=== PATIENT | male | born 1960 | race Caucasian/White ===

== ENCOUNTER → 2021-07-06 07:59 | Outpatient (BNVA) | payer MEDICARE, SELFPAY | PROVIDERS: Visit Provider Nurse Practitioner Family | DX: G43.109 Migraine with aura, not intractable, without status migrainosus (principal); G47.33 Obstructive sleep apnea (adult) (pediatric); G24.01 Drug induced subacute dyskinesia | CPT/HCPCS: 99212 ==

== ENCOUNTER → 2021-10-12 07:57 | Outpatient (BNVA) | payer MEDICARE, SELFPAY | PROVIDERS: PCP Family Medicine; Visit Provider Nurse Practitioner Family | DX: G43.109 Migraine with aura, not intractable, without status migrainosus (principal); G24.01 Drug induced subacute dyskinesia; G47.33 Obstructive sleep apnea (adult) (pediatric) | CPT/HCPCS: 99212 ==

== ENCOUNTER → 2022-02-06 07:57 | Outpatient (BNVA) | payer MEDICARE, SELFPAY | PROVIDERS: PCP Family Medicine; Visit Provider Nurse Practitioner Family | DX: G43.109 Migraine with aura, not intractable, without status migrainosus (principal); G47.33 Obstructive sleep apnea (adult) (pediatric); G24.01 Drug induced subacute dyskinesia | CPT/HCPCS: 99212 ==

== ENCOUNTER → 2022-08-07 12:52 | Outpatient (BNVA) | payer MEDICARE, SELFPAY | PROVIDERS: Visit Provider Nurse Practitioner Family | DX: G43.109 Migraine with aura, not intractable, without status migrainosus (principal); G47.33 Obstructive sleep apnea (adult) (pediatric); G24.01 Drug induced subacute dyskinesia; Z79.899 Other long term (current) drug therapy | CPT/HCPCS: 99212 ==

== ENCOUNTER 2023-03-23 11:23 | Outpatient (AMB) | payer MEDICARE, SELFPAY ==
[2023-03-23 11:32] VITALS: BP 134/72; PULSE 78; O2SAT 96; BMI 34.4
--- NOTE | 2023-03-23 11:32 | MHC.OFFVIS ---
Intake Vital Signs 03/23/23 11:32 Height 5 ft 9 in Weight 233 lb BMI 34.4 BP 134/72 Blood Pressure Location Rt brachial Position Sitting Pulse 78 Pulse Source Pulse Oximeter Pulse Oximetry (%) 96 Oxygen Delivery Method Room Air Intake Visit Reasons: 4m f/u migraine - Confirmed Intake Note: Patient presents for follow up. I'm still having lots of headaches since I saw her last. Allergies Peanut Butter Allergy (Intermediate, Verified 03/23/23 11:34) throat swells up Medication List - Last Reconciled 03/23/23 by ALLY Harding atorvastatin 40 mg PO BEDTIME blood sugar diagnostic (iDentiMobuch Ultra Test strips) As directed bromfenac 0.09% 0 drps ophthalmic (eye) clonidine HCl 0.1 mg PO BID PRN diphenhydramine HCl (Benadryl) 25 - 50 mg (1 - 2 x 25 mg) PO Q6-8H PRN 30 days erenumab-aooe (Aimovig Autoinjector) 140 mg subcut ONCE 30 days fluoxetine 40 mg PO DAILY gabapentin 300 mg PO TID glipizide ER 10 mg PO DAILY haloperidol 2 mg PO BEDTIME lamotrigine 150 mg PO DAILY lancets (LookletTouch Delica Plus Lancet) As directed levothyroxine (Euthyrox) 150 mcg PO DAILY PRN lisinopril 2.5 mg PO DAILY lisinopril 5 mg PO DAILY magnesium oxide 400 mg PO BEDTIME 30 days metformin 1,000 mg PO BID nortriptyline 50 mg PO BID pioglitazone 30 mg PO DAILY riboflavin (vitamin B2) 200 mg (2 x 100 mg) PO BID 30 days sumatriptan succinate 50 - 100 mg orally at onset of headache, may repeat in 2 hrs PRN; max 2 tabs per day or 4 tabs/week (may take with Ibuprofen) 30 days topiramate 50 mg PO BID 30 days zolmitriptan 5 mg PO Q2H PRN 30 days HPI HPI Comments History of Present Illness Details 62-yr-old female presents for f/u visit. Pt denies any significant interval medical changes. Pt reports he is is still having a headache every other day. He was not able to restart Aimovig- states it is still too expensive. He is compliant w/ Topiramate and Nortriptyline. Zolmitriptan helps- takes about 3 times per week. He is sleeping well with CPAP use. CPAP 14 cmH2O- no recent compliance data available. [facility] Surgical History [place] teeth extracted H/O shoulder surgery Family History Mother Diabetes Asthma Father No problems noted. Brother Diabetes Social History Alcohol intake: never Patient Tobacco Use Status: Current everyday Tobacco user Review of Systems Const All systems reviewed & are unremarkable except as noted in HPI and below Physical Exam Vital Signs: Last Vital Signs Pulse 78 03/23/23 11:32 BP 134/72 03/23/23 11:32 Pulse Ox 96 03/23/23 11:32 Oxygen Delivery Method Room Air 03/23/23 11:32 BMI result Body Mass Index 34.4 Const General: cooperative and no acute distress Orientation/consciousness: patient oriented x3 HEENT Head: Yes normocephalic Resp Effort & Inspection: normal respiratory effort and able to speak in complete sentences Neuro General: patient oriented x3, gait normal and CN's II-XI intact bilaterally Cognition (Neuro): normal cognition Motor exam (neuro): 5/5 motor strength present throughout Psych Appearance: grossly normal Mental Status: mental status grossly normal Speech and movement: Normal speech and movement present Affect: normal affect Attitude: cooperative Thought process: Normal thought process present Thought content: Normal thought content present Insight: Good insight present (Psych) Judgement: Good judgement present (Psych) Assessment & Plan Assessment & Plan (1) Migraine with aura: Code(s): G43.109 - Migraine with aura, not intractable, without status migrainosus (2) Obstructive sleep apnea: Comment: AHI 11 REM AHI 24/hr Oxygen tasha 75%. Code(s): G47.33 - Obstructive sleep apnea (adult) (pediatric) Plan For migraine prevention: Increase Topiramate from 50mg bid to 75mg bid x's 2 wks, then 100mg bid. Hold Aimovig 140mg sc q month- will revisit if co-pay becomes more affordable. Continue Nortriptyline- prescribed for mood Continue Lamotrigine- prescribed for mood. Continue lisinopril, clonidine- for BP and sleep- BP is normotensive. Continue Mag and B2. ? For acute migraine tx: Continue Zolmitriptan may take with Aleve liquid gels. Continue prn Benadryl 25-50mg for rescue/sleep. ? For PAKO: Continue CPAP 14 cmH2O, as pt is experiencing good clinical benefit from use. ? Monitor TD s/s clinically. Medications: New aripiprazole 5 mg orally BID PRN; Changed From topiramate 50 mg PO BID 30 days 60 tabs 3RF To topiramate 1.5 tabs bid x's 2 wks, then 2 tabs bid orally 2 times a day; 120 tabs 3RF 30 days Coding Level of Care Code Est Pt Level 4 (49257) Diagnoses Migraine with aura G43.109 Obstructive sleep apnea G47.33
== END 2023-03-23 12:10 | disposition home or self-care (01) ==
PROVIDERS: Visit Provider Nurse Practitioner Family
DX: G43.109 Migraine with aura, not intractable, without status migrainosus (principal); G47.33 Obstructive sleep apnea (adult) (pediatric)
CPT/HCPCS: 99214

== ENCOUNTER → 2023-03-23 11:23 | Outpatient (BNVA) | payer MEDICARE, SELFPAY | PROVIDERS: Visit Provider Nurse Practitioner Family | DX: G43.109 Migraine with aura, not intractable, without status migrainosus (principal); G47.33 Obstructive sleep apnea (adult) (pediatric) | CPT/HCPCS: 99212 ==

== ENCOUNTER 2023-07-25 11:33 | Outpatient (AMB) | payer MEDICARE, SELFPAY ==
--- NOTE | 2023-07-25 11:40 | A.OFFVIS_ITS ---
Vital Signs 07/25/23 11:41 Height 5 ft 9 in Weight 230 lb BMI 34.0 BP 112/70 Blood Pressure Location Rt brachial Pulse 75 Pulse Source Pulse Oximeter Pulse Oximetry (%) 97 Oxygen Delivery Method Room Air Intake Visit Reasons: 4 mnts f/u for migraines, pako-LVM Intake Note: Patient presents for follow up. migraines are coming back again. Allergies Peanut Butter Allergy (Intermediate, Verified 07/25/23 11:42) throat swells up Medication List - Last Reconciled 07/25/23 by ALLY Harding albuterol sulfate 90 mcg/actuation inhalation aripiprazole 5 mg orally BID PRN; atorvastatin 40 mg PO BEDTIME blood sugar diagnostic (Ventus Medicaluch Ultra Test strips) As directed bromfenac 0.09% 0 drps ophthalmic (eye) clonidine HCl 0.1 mg PO BID PRN diphenhydramine HCl (Benadryl) 25 - 50 mg (1 - 2 x 25 mg) PO Q6-8H PRN 30 days erenumab-aooe (Aimovig Autoinjector) 140 mg subcut ONCE 30 days fluoxetine 40 mg PO DAILY gabapentin 300 mg PO TID glipizide ER 10 mg PO DAILY haloperidol 2 mg PO BEDTIME lamotrigine 150 mg PO DAILY lancets (YouxinpaiTouch Delica Plus Lancet) As directed levothyroxine (Euthyrox) 150 mcg PO DAILY PRN lisinopril 2.5 mg PO DAILY lisinopril 5 mg PO DAILY magnesium oxide 400 mg PO BEDTIME 30 days metformin 1,000 mg PO BID nortriptyline 50 mg PO BID pioglitazone 30 mg PO DAILY riboflavin (vitamin B2) 200 mg (2 x 100 mg) PO BID 30 days sumatriptan succinate 50 - 100 mg orally at onset of headache, may repeat in 2 hrs PRN; max 2 tabs per day or 4 tabs/week (may take with Ibuprofen) 30 days topiramate 1.5 tabs bid x's 2 wks, then 2 tabs bid orally 2 times a day; 30 days zolmitriptan 5 mg PO Q2H PRN 30 days HPI Comments Details: 63-yr-old male presents for f/u visit. Pt reports last month, he had the Flu and bronchitis- required ABT, prednisone, and asthma tx. Around the same time, he pulled his left lateral thigh muscle- unsure how. His last HgA1C was 7.3% His migraine attacks are increasing. Now having 2-3 migraine days per week. He did increase Topiramate to 100mg bid- helped initially but effect has waned. He is still sleeping well w/ CPAP. [facility] Surgical History [place] teeth extracted H/O shoulder surgery Family History Mother Diabetes Asthma Father No problems noted. Brother Diabetes Social History Alcohol intake: never Patient Tobacco Use Status: Current everyday Tobacco user Physical Exam Vital Signs: Last Vital Signs Pulse 75 07/25/23 11:41 BP 112/70 07/25/23 11:41 Pulse Ox 97 07/25/23 11:41 Oxygen Delivery Method Room Air 07/25/23 11:41 BMI result Body Mass Index 34.0 Const General: cooperative and no acute distress Orientation/consciousness: patient oriented x3 Resp Other: intermittent non-productive cough Effort & Inspection: normal respiratory effort and able to speak in complete sentences Neuro General: patient oriented x3 Cranial nerves: Yes CN's II-XII intact bilaterally Cognition (Neuro): normal cognition Psych Appearance: grossly normal Mental Status: mental status grossly normal Speech and movement: Normal speech and movement present Affect: normal affect Attitude: cooperative Assessment & Plan Assessment & Plan (1) Migraine with aura: Code(s): G43.109 - Migraine with aura, not intractable, without status migrainosus Category: Medical (2) Obstructive sleep apnea: Comment: AHI 11 REM AHI 24/hr Oxygen tasha 75%. Code(s): G47.33 - Obstructive sleep apnea (adult) (pediatric) Category: Medical (3) Tardive dyskinesia: Comment: Jaw, tongue movements Code(s): G24.01 - Drug induced subacute dyskinesia Category: Medical Plan For migraine prevention: Trial Memantine 5mg qd x's 7 days, and then increase by 5mg weekly, up to 10mg bid. Continue Topiramate 100mg bid. Hold Aimovig 140mg sc q month- will revisit if co-pay becomes more affordable. Continue Nortriptyline- prescribed for mood Continue Lamotrigine- prescribed for mood. Continue lisinopril, clonidine- for BP and sleep- BP is normotensive. Continue Mag and B2. ? For acute migraine tx: Continue Zolmitriptan may take with Aleve liquid gels. Continue prn Benadryl 25-50mg for rescue/sleep. ? For PAKO: Continue CPAP 14 cmH2O, as pt is experiencing good clinical benefit from use. ? Monitor TD s/s clinically. f/u in 6 months or sooner prn. Medications: New memantine 1 tab qd x's 1 wk, then 1 tab bid x's 1 wk, then 1 tab in am and 2 tabs qhs x's 1 wk, then 2 tabs bid orally .; 120 tabs 3RF 30 days Coding Level of Care Code Est Pt Level 4 (68454) Diagnoses Migraine with aura G43.109 Obstructive sleep apnea G47.33 Tardive dyskinesia G24.01
[2023-07-25 11:41] VITALS: BP 112/70; PULSE 75; O2SAT 97; BMI 34.0
== END 2023-07-25 12:29 | disposition home or self-care (01) ==
PROVIDERS: Visit Provider Nurse Practitioner Family
DX: G43.109 Migraine with aura, not intractable, without status migrainosus (principal); G47.33 Obstructive sleep apnea (adult) (pediatric); G24.01 Drug induced subacute dyskinesia
CPT/HCPCS: 99214

== ENCOUNTER → 2023-07-25 11:33 | Outpatient (BNVA) | payer MEDICARE, SELFPAY | PROVIDERS: Visit Provider Nurse Practitioner Family | DX: G43.109 Migraine with aura, not intractable, without status migrainosus (principal); G47.33 Obstructive sleep apnea (adult) (pediatric); G24.01 Drug induced subacute dyskinesia | CPT/HCPCS: 99212 ==

== ENCOUNTER 2024-01-30 09:26 | Outpatient (AMB) | payer MEDICARE, SELFPAY ==
--- NOTE | 2024-01-30 09:33 | MHC.OFFVIS ---
Vital Signs 01/30/24 09:35 Height 5 ft 9 in Weight 232 lb BMI 34.3 BP 144/90 H Blood Pressure Location Rt brachial Position Sitting Intake Visit Reasons: 6month F/U Intake Note: Patient presents for 6 month follow up Allergies Peanut Butter Allergy (Intermediate, Verified 01/30/24 09:36) throat swells up Medication List - Last Reconciled 01/30/24 by ALLY Harding albuterol sulfate 90 mcg/actuation inhalation aripiprazole 5 mg orally BID PRN; atorvastatin 40 mg PO BEDTIME blood sugar diagnostic (Mesurouch Ultra Test strips) As directed bromfenac 0.09% 0 drps ophthalmic (eye) clonidine HCl 0.1 mg PO BID PRN diphenhydramine HCl (Benadryl) 25 - 50 mg (1 - 2 x 25 mg) PO Q6-8H PRN 30 days erenumab-aooe (Aimovig Autoinjector) 140 mg subcut ONCE 30 days fluoxetine 40 mg PO DAILY gabapentin 300 mg PO TID glipizide ER 10 mg PO DAILY haloperidol 2 mg PO BEDTIME lamotrigine 150 mg PO DAILY lancets (SinimanesTouch Delica Plus Lancet) As directed levothyroxine (Euthyrox) 150 mcg PO DAILY PRN lisinopril 2.5 mg PO DAILY lisinopril 5 mg PO DAILY magnesium oxide 400 mg PO BEDTIME 30 days memantine 10 mg PO BID 30 days metformin 1,000 mg PO BID nortriptyline 50 mg PO BID pioglitazone 30 mg PO DAILY riboflavin (vitamin B2) 200 mg (2 x 100 mg) PO BID 30 days sumatriptan succinate 50 - 100 mg orally at onset of headache, may repeat in 2 hrs PRN; max 2 tabs per day or 4 tabs/week (may take with Ibuprofen) 30 days topiramate 100 mg PO BID 30 days zolmitriptan 5 mg PO Q2H PRN 30 days HPI Comments Details: 63-yr-old male presents for f/u visit. Pt reports last month, he had the Flu and bronchitis- required ABT, prednisone, and asthma tx. Around the same time, he pulled his left lateral thigh muscle- unsure how. His last HgA1C was 7.3% His migraine attacks are now less often since starting memantine, now about 1-2 times a week. His acute tx is effective. Recently pharmacy would not fill the triptan x's 1.5 weeks so he had more headaches that week as he could not treat them. Topiramate 100mg bid- helped initially but effect has waned. He is still sleeping well w/ CPAP. His [facility] portal showed no recent use, but pt states he uses it religiously. He has not noticed any involuntary oral movements. [facility] Surgical History [place] teeth extracted H/O shoulder surgery Family History Mother Diabetes Asthma Father No problems noted. Brother Diabetes Social History Alcohol intake: never Patient Tobacco Use Status: Current everyday Tobacco user Physical Exam Vital Signs: Last Vital Signs BP 144/90 H 01/30/24 09:35 BMI result Body Mass Index 34.3 Const General: cooperative and no acute distress Orientation/consciousness: patient oriented x3 Resp Effort & Inspection: normal respiratory effort and able to speak in complete sentences Neuro General: patient oriented x3 Cranial nerves: Yes CN's II-XII intact bilaterally Cognition (Neuro): normal cognition Psych Appearance: grossly normal Mental Status: mental status grossly normal Speech and movement: Normal speech and movement present Affect: normal affect Attitude: cooperative Assessment & Plan Assessment & Plan (1) Migraine with aura: Code(s): G43.109 - Migraine with aura, not intractable, without status migrainosus Category: Medical (2) Obstructive sleep apnea: Comment: AHI 11 REM AHI 24/hr Oxygen tasha 75%. Code(s): G47.33 - Obstructive sleep apnea (adult) (pediatric) Category: Medical (3) Tardive dyskinesia: Comment: Jaw, tongue movements Code(s): G24.01 - Drug induced subacute dyskinesia Category: Medical Plan For migraine prevention: Continue Memantine 10mg bid, as this has been helpful in reducing migraine burden. Continue Topiramate 100mg bid. Continue Nortriptyline- prescribed for mood Continue Lamotrigine- prescribed for mood. Continue lisinopril, clonidine- for BP and sleep- BP is typically normotensive. Continue Mag and B2. Previous migraine tx trials: Aimovig 140mg sc- effective but not affordable. ? For acute migraine tx: Trial Eletriptan 20-40mg, MR in 2 hrs (max 80mg/day)- in hopes this is effective but more cost effective. If Eletriptan effective, may stop Zolmitriptan as pt has to pay for this out of pocket. For now, continue Zolmitriptan 5mg at onset, MR in 2 hrs (max 10mg/day) may take with Aleve liquid gels. Continue prn Benadryl 25-50mg for rescue/sleep. ? For PAKO: Continue CPAP 14 cmH2O, as pt is experiencing good clinical benefit from use. ? Monitor TD s/s clinically. f/u in 6 months or sooner prn. Medications: New eletriptan take 1 tab at onset of headache; if no relief, may repeat 1 tab after at least 2 hrs; max = 2 tabs/24 hrs PO 12 tabs 6RF 30 days Changed From topiramate 100 mg PO BID 30 days 60 tabs 6RF To topiramate 100 mg PO BID 180 tabs 1RF 90 days From riboflavin (vitamin B2) 200 mg (2 x 100 mg) PO BID 30 days 120 tabs 6RF To riboflavin (vitamin B2) 200 mg (2 x 100 mg) PO BID 360 tabs 3RF 90 days From magnesium oxide 400 mg PO BEDTIME 30 days 30 tabs 6RF To magnesium oxide 400 mg PO BEDTIME 90 tabs 6RF 90 days Refilled diphenhydramine HCl (Benadryl) 25 - 50 mg (1 - 2 x 25 mg) PO Q6-8H PRN 24 caps 6RF severe migraine attack 30 days memantine 10 mg PO BID 60 tabs 6RF 30 days zolmitriptan Max 2 tabs per day or 4 tabs per week 5 mg PO Q2H PRN 12 tabs 6RF migraine headache 30 days Discontinued erenumab-aooe Discontinued Reason: Doctor's Order 140 mg subcut ONCE 30 days 1 mL 6RF Coding Level of Care Code Est Pt Level 4 (72640) Diagnoses Migraine with aura G43.109 Obstructive sleep apnea G47.33 Tardive dyskinesia G24.01
[2024-01-30 09:35] VITALS: BP 144/90; BMI 34.3
== END 2024-01-30 10:05 | disposition home or self-care (01) ==
LOC: HO.HSMS 09:27
PROVIDERS: Visit Provider Nurse Practitioner Family
DX: G43.109 Migraine with aura, not intractable, without status migrainosus (principal); G47.33 Obstructive sleep apnea (adult) (pediatric); G24.01 Drug induced subacute dyskinesia
CPT/HCPCS: 99214

== ENCOUNTER → 2024-01-30 09:26 | Outpatient (BNVA) | payer MEDICARE, SELFPAY | PROVIDERS: Visit Provider Nurse Practitioner Family | DX: G47.33 Obstructive sleep apnea (adult) (pediatric) (principal); G43.109 Migraine with aura, not intractable, without status migrainosus; G24.01 Drug induced subacute dyskinesia; Z99.89 Dependence on other enabling machines and devices; Z79.899 Other long term (current) drug therapy | CPT/HCPCS: 99212 ==

== ENCOUNTER 2024-08-14 08:16 | Outpatient (AMB) | payer MEDICARE, SELFPAY ==
[2024-08-14 08:25] VITALS: BP 124/78; PULSE 81; O2SAT 92; BMI 32.8
--- NOTE | 2024-08-14 08:25 | MHC.OFFVIS ---
Vital Signs 08/14/24 08:25 Height 5 ft 9 in Weight 222 lb BMI 32.8 BP 124/78 Blood Pressure Location Lt brachial Pulse 81 Pulse Source Pulse Oximeter Pulse Oximetry (%) 92 Oxygen Delivery Method Room Air Intake Visit Reasons: Follow Up 6mo Intake Note: Patient presents month follow up for migraines. [employer] Final [employer] Mechanical Required: No Accompanied by: Self / Same As Patient Allergies Peanut Butter Allergy (Intermediate, Verified 08/14/24 08:28) throat swells up Medication List - Last Reconciled 08/14/24 by ALLY Harding albuterol sulfate 90 mcg/actuation inhalation aripiprazole 5 mg orally BID PRN; atorvastatin 40 mg PO BEDTIME blood sugar diagnostic (Achieve X Ultra Test strips) As directed bromfenac 0.09% 0 drps ophthalmic (eye) clonidine HCl 0.1 mg PO BID PRN diphenhydramine HCl (Benadryl) 25 - 50 mg (1 - 2 x 25 mg) PO Q6-8H PRN 30 days eletriptan take 1 tab at onset of headache; if no relief, may repeat 1 tab after at least 2 hrs; max = 2 tabs/24 hrs PO 30 days fluoxetine 40 mg PO DAILY gabapentin 300 mg PO TID glipizide ER 10 mg PO DAILY haloperidol 2 mg PO BEDTIME lamotrigine 150 mg PO DAILY lancets (Cvgram.meuch Delica Plus Lancet) As directed levothyroxine (Euthyrox) 150 mcg PO DAILY PRN lisinopril 2.5 mg PO DAILY lisinopril 5 mg PO DAILY magnesium oxide 400 mg PO BEDTIME 90 days memantine 10 mg PO BID 30 days metformin 1,000 mg PO BID nortriptyline 50 mg PO BID pioglitazone 30 mg PO DAILY riboflavin (vitamin B2) 200 mg (2 x 100 mg) PO BID 90 days sumatriptan succinate 50 - 100 mg orally at onset of headache, may repeat in 2 hrs PRN; max 2 tabs per day or 4 tabs/week (may take with Ibuprofen) 30 days topiramate 100 mg PO BID 90 days zolmitriptan 5 mg PO Q2H PRN 30 days HPI Comments Details: 64-yr-old male presents for f/u visit for migraine and PAKO on CPAP. Pt denies any significant interval medical history changes. Patient reports his migraine attacks are stable, now 3-4 times per week, but at the last visit, he had reported 1-2 headache days per week. He is compliant with his current preventative migraine medication regimen. His acute tx is usually effective. However, he does not believe he received the eletriptan, which we had ordered as he was needing to pay [id number] for his prn Zolmitriptan- as the sumatriptan is no longer on his insurance formulary. He is still sleeping well w/ CPAP. He has not noticed any involuntary oral movements. [facility] Surgical History [place] teeth extracted H/O shoulder surgery Family History Mother Diabetes Asthma Father No problems noted. Brother Diabetes Social History Alcohol intake: never Patient Tobacco Use Status: Current everyday Tobacco user Physical Exam Vital Signs: Last Vital Signs Pulse 81 08/14/24 08:25 BP 124/78 08/14/24 08:25 Pulse Ox 92 08/14/24 08:25 Oxygen Delivery Method Room Air 08/14/24 08:25 BMI result Body Mass Index 32.8 Const General: cooperative and no acute distress Orientation/consciousness: patient oriented x3 Resp Effort & Inspection: normal respiratory effort and able to speak in complete sentences Neuro General: patient oriented x3 Cranial nerves: Yes CN's II-XII intact bilaterally Cognition (Neuro): normal cognition Psych Appearance: grossly normal Mental Status: mental status grossly normal Speech and movement: Normal speech and movement present Affect: normal affect Attitude: cooperative Assessment & Plan Assessment & Plan (1) Migraine with aura: Code(s): G43.109 - Migraine with aura, not intractable, without status migrainosus Category: Medical (2) Obstructive sleep apnea: Comment: AHI 11 REM AHI 24/hr Oxygen tasha 75%. Code(s): G47.33 - Obstructive sleep apnea (adult) (pediatric) Category: Medical (3) Tardive dyskinesia: Comment: Jaw, tongue movements Code(s): G24.01 - Drug induced subacute dyskinesia Category: Medical Plan For migraine prevention: Reviewed patient's insurance coverage/[id number] cost for all current available CGRP antagonist preventative treatments- however they are all still cost prohibitive for patient. Discussed trying Botox therapy, however patient states he is not interested in trying Botox. Continue Memantine 10mg bid, as this has been helpful in reducing migraine burden. Continue Topiramate 100mg bid. Continue Nortriptyline- prescribed for mood Continue Lamotrigine- prescribed for mood. Continue lisinopril, clonidine- for BP and sleep- BP is typically normotensive. Continue Mag and B2. Previous migraine tx trials: Aimovig 140mg sc- effective but not affordable. Future consideration: Trialing Co [id number] is not interested in trying this today. ? For acute migraine tx: Trial Rizatriptan 10mg tab, 1/2 - 1 tab (5-10mg) at onset of headache, may repeat in 2 hours. Max of 2 tabs (200mg) per 24 hours. May adjunct with OTC Tylenol 650mg every 4 hours, Ibuprofen (liquigel) 600mg every 6 hours, or Naproxen (liquigel) 440mg every 12 hrs as needed. Potential adverse effects of triptans, include but are not limited to nausea, fatigue, chest tightness/tingling (usually passes within a few minutes), medication overuse headaches. Hold Eletriptan order- pt has not rec'd. Hold Zolmitriptan 5mg at onset, MR in 2 hrs (max 10mg/day) may take with Aleve liquid gels. Continue prn Benadryl 25-50mg for rescue/sleep. ? For PAKO: Continue CPAP 14 cmH2O, as pt is experiencing good clinical benefit from use. ? Monitor TD s/s clinically. f/u in 6 months or sooner prn. Coding Level of Care Code Est Pt Level 4 (72358) Diagnoses Migraine with aura G43.109 Obstructive sleep apnea G47.33 Tardive dyskinesia G24.01
--- OUTSIDE RECORDS SUMMARY | 2024-08-14 08:28 | XMS_ITS | Clinical Summary ---
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 Name Role Phone Santy Lizarraga MD Primary Care Provider [phone] Social History Tobacco Use Types Packs/Day Years Used Date Smoking Tobacco: Never Assessed Sex and Gender Information Value Date Recorded Sex Assigned at Not on file Legal Sex Male 4:59 PM EST Gender Identity Not on file Sexual Orientation Not on file Plan of Treatment Health Maintenance Due Date Last Done Comments DTaP,Tdap,and Td Vaccines (1 - Tdap) 1979 Pneumococcal Vaccine: 50+ Ye ars (1 of 1 - PCV) 2010 Zoster Vaccines (1 of 2) 2010 COVID-19 Vaccine ( - 2023-2 5 season) 2023 Influenza Vaccine (Season Ended) 2024 RSV Immunization Adult Patie nts (1 - 1-dose 75+ series) 2035 HIB Vaccines Aged Out No longer eligi ble based on patient's age to complete this topic HPV Vaccines Aged Out No longer eligi ble based on patient's age to complete this topic Hepatitis A Vaccines Aged Out No long er eligible based on patient's age to complete this topic Hepatitis B Vaccines Aged Out No long er eligible based on patient's age to complete this topic IPV Vaccines Aged Out No longer eligi ble based on patient's age to complete this topic MMR Vaccines Aged Out No longer eligi ble based on patient's age to complete this topic Meningococcal ACWY Vaccine Aged Out N o longer eligible based on patient's age to complete this topic Meningococcal B Vaccine Aged Out No l onger eligible based on patient's age to complete this topic Pneumococcal Vaccine: Pediat rics (0 to 5 Years) and At-Risk Patients (6 to 64 Years) Aged Out No longer eligible b ased on patient's age to complete this topic RSV Immunization Patients Un martinez 20 months Aged Out No longer eligible b ased on patient's age to complete this topic Varicella Vaccines Aged Out No longer eligible based on patient's age to complete this topic Care Teams Boatbuilder Apprentice Wood Relationship Specialty Start Date End Date Santy Lizarraga MD [id number] [id number] PCP - General Internal Medicine 07/14/20
--- OUTSIDE RECORDS SUMMARY | 2024-08-14 08:29 | XMS_ITS | Data Portability ---
Author Organization [facility], Main Office Address [address] [place] [id number] Care Team Providers Care Shingle Cutter Name Role Phone ASHELY CRUZ Commercial Hvac Service Technician ISIAH BRIAN Vascular Surgeon LION KIRK Oral Surgeon/Dentist SHALOM AIKEN Primary Care Provider ANJALI WISE Psychiatrist [facility] Installer Technician LES RUSH Installer Technician Assessment No assessment recorded. Plan of Treatment Reminders Order Date Submit Date Provider Last Modified By Organization Details Last Modified Time Details Appointments Follow Up DM 30 2024 02:30P Alan Lee PA-C Not available Not available Not available Follow Up DM 30 2024 09:00A Alan Lee PA-C Not available Not available Not available FOLLOW UP 2024 10:30A Alan Aiken MD Not available Not available Not available Lab vitamin B12, serum 2024 025 [facility], [address], [place], [address], 08/13/2024 10:30:16 urinalysi s complete, reflex culture 2024 025 [facility] (Centralized Electronic Ordering - All Locations), Patient Can Go To The Location Of Their Choice, [id number] 08/13/2024 10:30:16 PSA, serum or plasma 2024 025 [facility] (Centralized Electronic Ordering - All Locations), Patient Can Go To The Location Of Their Choice, 08/13/2024 10:30:31 magnesium , serum or plasma 2024 025 [facility] (Centralized Electronic Ordering - All Locations), Patient Can Go To The Location Of Their Choice, 08/13/2024 10:30:31 lipid panel, serum 2024 025 [facility] (Centralized Electronic Ordering - All Locations), Patient Can Go To The Location Of Their Choice, 08/13/2024 10:30:16 HbA1c (hemoglob in A1c), blood 2024 025 [facility] (Centralized Electronic Ordering - All Locations), Patient Can Go To The Location Of Their Choice, 08/13/2024 10:30:31 TSH + free T4, serum 2024 025 [facility] (Centralized Electronic Ordering - All Locations), Patient Can Go To The Location Of Their Choice, 08/13/2024 10:30:15 hemoglobi n A1C, fingersti ck 2024 025 [facility] In-Office Order, Internal Use Only DO Not Attach Compendium DO Not Attach Compendium, Do Not Delete/merge, [id number] 05/28/2024 13:25:03 CMP, serum or plasma 2024 025 [facility] (Centralized Electronic Ordering - All Locations), Patient Can Go To The Location Of Their Choice, 07/01/2024 06:07:47 microalbu min/creat inine, mass ratio, urine 2024 025 [facility] (Centralized Electronic Ordering - All Locations), Patient Can Go To The Location Of Their Choice, 07/05/2024 12:06:29 fecal occult blood, immunoass ay, stool 2023 024 [facility] In-Office Order, Internal Use Only DO Not Attach Compendium DO Not Attach Compendium, Do Not Delete/merge, [id number] 10/17/2023 14:39:31 hemoglobi n A1C, fingersti ck 2023 024 In-Office Order, Internal Use Only DO Not Attach Compendium DO Not Attach Compendium, Do Not Delete/merge, [id number] 10/17/2023 10:15:25 Referral diabetic ophthalmo logy referral 2024 025 FEMI Alvarez MD, [address] [facility] [address], [place], [address], 05/29/2024 14:44:04 Procedures None recorded. Surgeries None recorded. Imaging LDCT, chest, for lung cancer screening - *LDCT Lung Cancer Screening Program Annual Order* The patient does not have lung cancer or signs of lung cancer at this time. Patient has not had a chest CT in the last 12 months. *SHARED DECISION MAKING*I have discussed the benefits and risks of lung cancer screening in complianc e with [facility] shared decision making guideline s including early detection , radiation exposure, false negative rates, false positive rates, over-diag nosis, incidenta l findings, impact of comorbidi ties and the ability or willingne ss to undergo diagnosis and treatment if something concernin g is found.I have reviewed with the patient the importanc e of abstinenc e if a former smoker, and importanc e of smoking cessation if a current smoker. I have furnished the patient with informati on and resources available to quit smoking if appropria te. [id number] [facility], [address] [facility] [address], [place], [address], 08/13/2024 10:39:33 Medication Orders nicotine 14 mg/24 hr daily transderm al patch 2024 025 [facility], [address] [place] [address], [id number], 08/13/2024 10:03:48 nicotine (polacril ex) 2 mg gum 2024 025 [facility], [address] [place], [address], 08/13/2024 10:03:27 Patient TargetsNo targets recorded. Patient Instructions Encounter Date Encounter Id Patient Instructions Last Modified By Organization Details Last Modified Time 10/17/2023 [id number] type 2 diabetes: care instructions Not available 10/17/2023 10:15:25 04/09/2024 [id number] deciding about using medicines to quit smoking [email or web address] Not available 04/09/2024 10:53:25 Quitting Tobacco : Care Instructions ckokar Not available 04/09/2024 10:53:25 chronic obstructive pulmonary disease (COPD): care instructions ckokar Not available 04/09/2024 10:53:25 learning about copd and how to prevent lung infections ckokar Not available 04/09/2024 10:53:25 05/28/2024 [id number] high blood pressure: care instructions Not available 05/28/2024 13:29:09 learning about high blood pressure Not available 05/28/2024 13:29:09 type 2 diabetes: care instructions Not available 05/28/2024 13:29:09 08/13/2024 [id number] When You Want to Lose Weight: Care Instructions ckokar Not available 08/13/2024 10:30:12 Prostate Cancer Screening ckokar Not available 08/13/2024 10:30:12 high blood pressure: care instructions ckokar Not available 08/13/2024 10:30:12 learning about high blood pressure ckokar Not available 08/13/2024 10:30:12 deciding about using medicines to quit smoking ckokar Not available 08/13/2024 10:30:12 Quitting Tobacco : Care Instructions ckokar Not available 08/13/2024 10:30:11 high cholesterol : care instructions ckokar Not available 08/13/2024 10:30:12 preventing falls : care instructions ckokar Not available 08/13/2024 10:30:12 well visit, over 65: care instructions ckokar Not available 08/13/2024 10:30:12 type 2 diabetes: care instructions ckokar Not available 08/13/2024 10:30:12 hypothyroidism: care instructions ckokar Not available 08/13/2024 10:30:12 iron deficiency anemia: care instructions ckokar Not available 08/13/2024 10:30:11 Reason for Referral Diabetic Ophthalmology Refer ral for Type 2 diabetes mellitus without complication Referring Physician: Rachel Lee, Internal Medicine, Encounter Date: 05/28/2024 Results Created Date Observation Date Name Description Value Unit Range Abnormal Flag Note LastModifiedBy Organization Detail LastModifiedTime 10/15/19 24 10/16/2023 CMP12 +CBC/ D/PLT +TSH glucose 114 mg/dL 70-99 above high normal Not Available [facility] ([facility]) [address] [facility], [place], [address], 10/16/2023 06:07:58 10/15/1910/16/2023 CMP12 +CBC/ D/PLT +TSH BUN 12 mg/dL 8-27 Not Available [facility] ([facility]) [address] [facility], [place], [address], 10/16/2023 06:07:58 10/15/19 24 10/16/2023 CMP12 +CBC/ D/PLT +TSH creatinine 1.09 mg/dL 0.76-1 .27 Not Available [facility] ([facility]) [address] [facility], [place], [address], 10/16/2023 06:07:58 10/15/19 24 10/16/2023 CMP12 +CBC/ D/PLT +TSH eGFR 76 mL/mi n/1.7 3 >59 Not Available [facility] ([facility]) [address] [facility] [address], [place], [address], 10/16/2023 06:07:58 10/15/19 24 10/16/2023 CMP12 +CBC/ D/PLT +TSH BUN/creatini ne ratio 11 10-24 Not Available [facility] ([facility]) [address] [place], [address], 10/16/2023 06:07:58 10/15/19 24 10/16/2023 CMP12 +CBC/ D/PLT +TSH sodium 141 mmol/ L 134-14 4 Not Available [facility] ([facility]) [address] [facility], [place], [address], 10/16/2023 06:07:58 10/15/19 24 10/16/2023 CMP12 +CBC/ D/PLT +TSH potassium 4.1 mmol/ L 3.5-5. 2 Not Available [facility] ([facility]) [address] [facility], [place], [address], 10/16/2023 06:07:58 10/15/19 24 10/16/2023 CMP12 +CBC/ D/PLT +TSH chloride 108 mmol/ L 96-106 above high normal Not Available [facility] ([facility]) [address] [facility], [place], [address], 10/16/2023 06:07:58 10/15/19 24 10/16/2023 CMP12 +CBC/ D/PLT +TSH calcium 9.0 mg/dL 8.6-10 .2 Not Available [facility] ([facility]) [address] [facility], [place], [address], 10/16/2023 06:07:58 10/15/1910/16/2023 CMP12 +CBC/ D/PLT +TSH protein, total 6.0 g/dL 6.0-8. 5 Not Available [facility] ([facility]) [address] [facility], [place], [address], 10/16/2023 06:07:58 10/15/1910/16/2023 CMP12 +CBC/ D/PLT +TSH albumin 4.0 g/dL 3.9-4. 9 Not Available [facility] ([facility]) [address] [place], [address], 10/16/2023 06:07:58 10/15/19 24 10/16/2023 CMP12 +CBC/ D/PLT +TSH globulin, total 2.0 g/dL 1.5-4. 5 Not Available [facility] ([facility]) [address] [facility], [place], [address], 10/16/2023 06:07:58 10/15/19 24 10/16/2023 CMP12 +CBC/ D/PLT +TSH bilirubin, total <0.2 mg/dL 0.0-1. 2 Not Available [facility] ([facility]) [address] [facility], [place], [address], 10/16/2023 06:07:58 10/15/19 24 10/16/2023 CMP12 +CBC/ D/PLT +TSH alkaline phosphatase 116 IU/L 44-121 Not Available [facility]) [address] [facility] [address], [place], [address], 10/16/2023 06:07:58 10/15/19 24 10/16/2023 CMP12 +CBC/ D/PLT +TSH AST (SGOT) 20 IU/L 0-40 Not Available [facility] ([facility]) [address] [facility] [address], [place], [address], 10/16/2023 06:07:58 10/15/19 24 10/16/2023 CMP12 +CBC/ D/PLT +TSH TSH 0.516 uIU/m L 0.450- 4.500 Not Available [facility] ([facility]) [address] [facility], [place], [address], 10/16/2023 06:07:58 10/15/19 24 10/16/2023 CMP12 +CBC/ D/PLT +TSH WBC 6.5 x10e3 /uL 3.4-10 .8 Not Available [facility] ([facility]) [address] [facility], [place], [address], 10/16/2023 06:07:58 10/15/19 24 10/16/2023 CMP12 +CBC/ D/PLT +TSH RBC 4.10 x10e6 /uL 4.14-5 .80 below low normal Not Available [facility] ([facility]) [address] [facility], [place], [address], 10/16/2023 06:07:58 10/15/19 24 10/16/2023 CMP12 +CBC/ D/PLT +TSH hemoglobin 8.5 g/dL 13.0-1 7.7 below low normal Not Available [facility] ([facility]) [address] [facility], [place], [address], 10/16/2023 06:07:58 10/15/19 24 10/16/2023 CMP12 +CBC/ D/PLT +TSH hematocrit 29.5 % 37.5-5 1.0 below low normal Not Available [facility] ([facility]) [address] [facility], [place], [address], 10/16/2023 06:07:58 10/15/19 24 10/16/2023 CMP12 +CBC/ D/PLT +TSH MCV 72 fL 79-97 below low normal Not Available [facility] ([facility]) [address] [place], [address], 10/16/2023 06:07:58 10/15/19 24 10/16/2023 CMP12 +CBC/ D/PLT +TSH MCH 20.7 pg 26.6-3 3.0 below low normal Not Available [facility] ([facility]) [address] [place], [address], 10/16/2023 06:07:58 10/15/19 24 10/16/2023 CMP12 +CBC/ D/PLT +TSH MCHC 28.8 g/dL 31.5-3 5.7 below low normal Not Available [facility] ([facility]) [address] [place], [address], 10/16/2023 06:07:58 10/15/19 24 10/16/2023 CMP12 +CBC/ D/PLT +TSH RDW 17.5 % 11.6-1 5.4 above high normal Not Available [facility] ([facility]) [address] [facility], [place], [address], 10/16/2023 06:07:58 10/15/19 24 10/16/2023 CMP12 +CBC/ D/PLT +TSH platelets 302 x10e3 /uL 150-45 0 Not Available [facility] ([facility]) [address] [facility], [place], [address], 10/16/2023 06:07:58 10/15/19 24 10/16/2023 CMP12 +CBC/ D/PLT +TSH neutrophils 61 % not estab. Not Available [facility] ([facility]) [address] [facility], [place], [address], 10/16/2023 06:07:58 10/15/19 24 10/16/2023 CMP12 +CBC/ D/PLT +TSH lymphs 22 % not estab. Not Available [facility] ([facility]) [address] [facility], [place], [address], 10/16/2023 06:07:58 10/15/19 24 10/16/2023 CMP12 +CBC/ D/PLT +TSH monocytes 8 % not estab. Not Available [facility] ([facility]) [address] [facility], [place], [address], 10/16/2023 06:07:58 10/15/19 24 10/16/2023 CMP12 +CBC/ D/PLT +TSH eos 6 % not estab. Not Available [facility] ([facility]) [address] [facility], [place], [address], 10/16/2023 06:07:58 10/15/19 24 10/16/2023 CMP12 +CBC/ D/PLT +TSH basos 2 % not estab. Not Available [facility] ([facility]) [address] [facility], [place], [address], 10/16/2023 06:07:58 10/15/19 24 10/16/2023 CMP12 +CBC/ D/PLT +TSH immature cells DINING SERVER Not Available [facility] ([facility]) [address] [place], [address], 10/16/2023 06:07:58 10/15/1910/16/2023 CMP12 +CBC/ D/PLT +TSH neutrophils (absolute) 4.0 x10e3 /uL 1.4-7. 0 Not Available [facility] ([facility]) [address] [place], [address], 10/16/2023 06:07:58 10/15/1910/16/2023 CMP12 +CBC/ D/PLT +TSH lymphs (absolute) 1.4 x10e3 /uL 0.7-3. 1 Not Available [facility] ([facility]) [address] [place], [address], 10/16/2023 06:07:58 10/15/1910/16/2023 CMP12 +CBC/ D/PLT +TSH monocytes(ab solute) 0.5 x10e3 /uL 0.1-0. 9 Not Available [facility] ([facility]) [address] [place], [address], 10/16/2023 06:07:58 10/15/19 24 10/16/2023 CMP12 +CBC/ D/PLT +TSH eos (absolute) 0.4 x10e3 /uL 0.0-0. 4 Not Available [facility] ([facility]) [address] [place], [address], 10/16/2023 06:07:58 10/15/1910/16/2023 CMP12 +CBC/ D/PLT +TSH baso (absolute) 0.1 x10e3 /uL 0.0-0. 2 Not Available [facility] ([facility]) [address] [place], [address], 10/16/2023 06:07:58 07/15/20 24 10/16/2023 CMP12 +CBC/ D/PLT +TSH immature granulocytes 1 % not estab. Not Available [facility] ([facility]) [address] [facility], [place], [address], 10/16/2023 06:07:58 10/15/19 24 10/16/2023 CMP12 +CBC/ D/PLT +TSH immature grans (abs) 0.0 x10e3 /uL 0.0-0. 1 Not Available [facility] ([facility]) [address] [facility], [place], [address], 10/16/2023 06:07:58 10/15/19 24 10/16/2023 CMP12 +CBC/ D/PLT +TSH NRBC DINING SERVER Not Available [facility] ([facility]) [address] [facility], [place], [address], 10/16/2023 06:07:58 10/15/19 24 10/16/2023 CMP12 +CBC/ D/PLT +TSH hematology comments: DINING SERVER Not Available [facility] ([facility]) [address] [place], [address], 10/16/2023 06:07:58 10/15/19 24 10/16/2023 LIPID PANEL cholesterol, total 111 mg/dL 100-19 9 Not Available [facility] ([facility]) [address] [facility] [address], [place], [address], 10/16/2023 06:07:59 10/15/19 24 10/16/2023 LIPID PANEL triglyceride s 52 mg/dL 0-149 Not Available [facility] ([facility]) [address] [place], [address], 10/16/2023 06:07:59 10/15/19 24 10/16/2023 LIPID PANEL HDL cholesterol 38 mg/dL >39 below low normal Not Available [facility] ([facility]) [address] [place], [address], 10/16/2023 06:07:59 10/15/19 24 10/16/2023 LIPID PANEL VLDL cholesterol jaime 12 mg/dL 5-40 Not Available [facility] ([facility]) [address] [facility] [address], [place], [address], 10/16/2023 06:07:59 10/15/19 24 10/16/2023 LIPID PANEL LDL chol calc ([facility]) 61 mg/dL 0-99 Not Available [facility] ([facility]) [address] [facility], [place], [address], 10/16/2023 06:07:59 10/15/19 24 10/16/2023 LIPID PANEL LDL calc comment: DINING SERVER Not Available [facility] ([facility]) [address] [facility], [place], [address], 10/16/2023 06:07:59 10/15/19 24 10/15/2023 PSA TOTAL (REFL EX TO FREE) reflex criteria Commen t The perce nt free PSA is perfo rmed on a refle x basis only when the total PSA is betwe en 4.0 and 10.0 ng/mL . Not Available [facility] ([facility]) [address] [facility], [place], [address], 10/16/2023 08:08:52 10/15/1910/16/2023 PSA TOTAL (REFL EX TO FREE) prostate specific Ag 0.3 NG/mL 0.0-4. 0 Karla ECLIA metho dolog y. Accor ding to the Ameri can [employer] g[employer] iatio n, Serum PSA shoul d decre ase and remai n at undet ectab le level s after radic al prost atect marco a. The AUA defin es bioch emica l recur rence as an initi al PSA value 0.2 ng/mL or great er follo wed by a subse quent confi rmato ry PSA value 0.2 ng/mL or great er. Value s obtai violeta with diffe rent assay metho ds or kits canno t be used inter [facility] . Resul ts canno t be inter prete d as absol [place] evide nce of the prese nce or absen ce of samantha zambrano . Not Available [facility] ([facility]) [address] [facility], [place], [address], 10/16/2023 08:08:52 10/15/19 24 10/16/2023 T4, FREE T4,free(dire ct) 1.17 NG/dL 0.82-1 .77 Not Available [facility] ([facility]) [address] [place], [address], 10/16/2023 08:08:53 10/15/19 24 10/16/2023 VITAM IN B12 vitamin B12 580 pg/mL 232-12 45 Not Available [facility] ([facility]) [address] [facility], [place], [address], 10/16/2023 08:08:54 10/17/19 24 10/18/2023 CBC WITH DIFFE RENTI AL/PL ATELE T WBC 6.3 x10e3 /uL 3.4-10 .8 Not Available [facility] ([facility]) [address] [place], [address], 10/21/2023 16:05:49 10/17/19 24 10/18/2023 CBC WITH DIFFE RENTI AL/PL ATELE T RBC 4.16 x10e6 /uL 4.14-5 .80 Not Available [facility] ([facility]) [address] [place], [address], 10/21/2023 16:05:49 10/17/19 24 10/18/2023 CBC WITH DIFFE RENTI AL/PL ATELE T hemoglobin 8.5 g/dL 13.0-1 7.7 below low normal Not Available [facility] ([facility]) [address] [place], [address], 10/21/2023 16:05:49 10/17/19 24 10/18/2023 CBC WITH DIFFE RENTI AL/PL ATELE T hematocrit 29.6 % 37.5-5 1.0 below low normal Not Available [facility] ([facility]) [address] [facility], [place], [address], 10/21/2023 16:05:49 10/17/19 24 10/18/2023 CBC WITH DIFFE RENTI AL/PL ATELE T MCV 71 fL 79-97 below low normal Not Available [facility] ([facility]) [address] [place], [address], 10/21/2023 16:05:49 10/17/19 24 10/18/2023 CBC WITH DIFFE RENTI AL/PL ATELE T MCH 20.4 pg 26.6-3 3.0 below low normal Not Available [facility] ([facility]) [address] [facility], [place], [address], 10/21/2023 16:05:49 10/17/19 24 10/18/2023 CBC WITH DIFFE RENTI AL/PL ATELE T MCHC 28.7 g/dL 31.5-3 5.7 below low normal Not Available [facility] ([facility]) [address] [place], [address], 10/21/2023 16:05:49 10/17/19 24 10/18/2023 CBC WITH DIFFE RENTI AL/PL ATELE T RDW 17.2 % 11.6-1 5.4 above high normal Not Available [facility] ([facility]) [address] [place], [address], 10/21/2023 16:05:49 10/17/19 24 10/18/2023 CBC WITH DIFFE RENTI AL/PL ATELE T platelets 288 x10e3 /uL 150-45 0 Not Available [facility] ([facility]) [address] [place], [address], 10/21/2023 16:05:49 10/17/19 24 10/18/2023 CBC WITH DIFFE RENTI AL/PL ATELE T neutrophils 61 % not estab. Not Available [facility] ([facility]) [address] [facility], [place], [address], 10/21/2023 16:05:49 10/17/19 24 10/18/2023 CBC WITH DIFFE RENTI AL/PL ATELE T lymphs 22 % not estab. Not Available [facility] ([facility]) [address] [facility], [place], [address], 10/21/2023 16:05:49 10/17/19 24 10/18/2023 CBC WITH DIFFE RENTI AL/PL ATELE T monocytes 9 % not estab. Not Available [facility] ([facility]) [address] [facility], [place], [address], 10/21/2023 16:05:49 10/17/19 24 10/18/2023 CBC WITH DIFFE RENTI AL/PL ATELE T eos 5 % not estab. Not Available [facility] ([facility]) [address] [facility], [place], [address], 10/21/2023 16:05:49 10/17/19 24 10/18/2023 CBC WITH DIFFE RENTI AL/PL ATELE T basos 2 % not estab. Not Available [facility] ([facility]) [address] [facility], [place], [address], 10/21/2023 16:05:49 10/17/19 24 10/18/2023 CBC WITH DIFFE RENTI AL/PL ATELE T immature cells DINING SERVER Not Available [facility] ([facility]) [address] [place], [address], 10/21/2023 16:05:49 10/17/19 24 10/18/2023 CBC WITH DIFFE RENTI AL/PL ATELE T neutrophils (absolute) 3.8 x10e3 /uL 1.4-7. 0 Not Available [facility] ([facility]) [address] [facility], [place], [address], 10/21/2023 16:05:49 10/17/19 24 10/18/2023 CBC WITH DIFFE RENTI AL/PL ATELE T lymphs (absolute) 1.4 x10e3 /uL 0.7-3. 1 Not Available [facility] ([facility]) [address] [facility], [place], [address], 10/21/2023 16:05:49 10/17/19 24 10/18/2023 CBC WITH DIFFE RENTI AL/PL ATELE T monocytes(ab solute) 0.6 x10e3 /uL 0.1-0. 9 Not Available [facility] ([facility]) [address] [facility], [place], [address], 10/21/2023 16:05:49 10/17/19 24 10/18/2023 CBC WITH DIFFE RENTI AL/PL ATELE T eos (absolute) 0.3 x10e3 /uL 0.0-0. 4 Not Available [facility] ([facility]) [address] [place], [address], 10/21/2023 16:05:49 10/17/19 24 10/18/2023 CBC WITH DIFFE RENTI AL/PL ATELE T baso (absolute) 0.1 x10e3 /uL 0.0-0. 2 Not Available [facility] ([facility]) [address] [place], [address], 10/21/2023 16:05:49 10/17/19 24 10/18/2023 CBC WITH DIFFE RENTI AL/PL ATELE T immature granulocytes 1 % not estab. Not Available [facility] ([facility]) [address] [place], [address], 10/21/2023 16:05:49 10/17/19 24 10/18/2023 CBC WITH DIFFE RENTI AL/PL ATELE T immature grans (abs) 0.0 x10e3 /uL 0.0-0. 1 Not Available [facility] ([facility]) [address] [facility], [place], [address], 10/21/2023 16:05:49 10/17/19 24 10/18/2023 CBC WITH DIFFE RENTI AL/PL ATELE T NRBC DINING SERVER Not Available [facility] ([facility]) [address] [facility], [place], [address], 10/21/2023 16:05:49 10/17/19 24 10/18/2023 CBC WITH DIFFE RENTI AL/PL ATELE T hematology comments: DINING SERVER Not Available [facility] ([facility]) [address] [facility], [place], [address], 10/21/2023 16:05:49 10/17/19 24 10/18/2023 IRON AND TIBC iron bind.cap.(TI BC) 428 ug/dL 250-45 0 Not Available [facility] ([facility]) [address] [place], [address], 10/21/2023 16:05:50 10/17/19 24 10/18/2023 IRON AND TIBC UIBC 410 ug/dL 111-34 3 above high normal Not Available [facility] ([facility]) [address] [place], [address], 10/21/2023 16:05:50 10/17/19 24 10/18/2023 IRON AND TIBC iron 18 ug/dL 38-169 below low normal Not Available [facility] ([facility]) [address] [place], [address], 10/21/2023 16:05:50 10/17/19 24 10/18/2023 IRON AND TIBC iron saturation 4 % 15-55 alert low Not Available [facility] ([facility]) [address] [facility], [place], [address], 10/21/2023 16:05:50 10/17/19 24 10/18/2023 FOLAT E (FOLI C ACID) , SERUM folate (folic acid), serum 14.2 NG/mL >3.0 A serum folat e swapna ntrat ion of less than 3.1 ng/mL is consi dered to repre sent clini jaime defic iency . Not Available [facility] ([facility]) [address] [facility], [place], [address], 10/21/2023 16:05:50 10/17/19 24 10/21/2023 SOLUB LE TRANS SWAPNA N BURIAL AGENT TOR soluble transferrin receptor 55.7 nmol/ L 12.2-2 7.3 above high normal Not Available [facility] ([facility]) [address] [facility] [address], [place], [address], 10/21/2023 16:05:51 10/17/19 24 10/18/2023 VITAM IN B12 vitamin B12 518 pg/mL 232-12 45 Not Available [facility] ([facility]) [address] [facility] [address], [place], [address], 10/21/2023 16:05:51 10/17/19 24 10/18/2023 SWAPNA TIN ferritin 5 NG/mL 30-400 below low normal Not Available [facility] ([facility]) [address] [place], [address], 10/21/2023 16:05:51 10/17/19 24 10/18/2023 RETIC ULOCY TE COUNT reticulocyte count 1.4 % 0.6-2. 6 Not Available [facility] ([facility]) [address] [facility] [address], [place], [address], 10/21/2023 16:05:52 10/17/19 24 10/17/2023 hemog lobin A1C, finge rstic k A1C 6.8 % 4-6 Not Available In-Office Order Internal Use Only DO Not Attach Compendium DO Not Attach Compendium, Do Not Delete/merge, [id number] 10/17/2023 10:03:28 11/20/19 24 11/20/2023 fecal occul t blood , immun oassa y, stool RESULT positi ve Not Available In-Office Order Internal Use Only DO Not Attach Compendium DO Not Attach Compendium, Do Not Delete/merge, [id number] 10/17/2023 10:17:11 05/28/19 25 05/28/2024 hemog lobin A1C, finge rstic k A1C 7.3 % 4-6 abnormal Not Available In-Office Order Internal Use Only DO Not Attach Compendium DO Not Attach Compendium, Do Not Delete/merge, [id number] 05/28/2024 13:06:22 07/01/19 25 06/30/2024 CMP14 +EGFR glucose 174 mg/dL 70-99 above high normal Not Available [facility] ([facility]) [address] [place], [address], 07/01/2024 06:07:47 07/01/19 25 06/30/2024 CMP14 +EGFR BUN 16 mg/dL 8-27 normal Not Available [facility] ([facility]) [address] [place], [address], 07/01/2024 06:07:47 07/01/19 25 06/30/2024 CMP14 +EGFR creatinine 1.11 mg/dL 0.76-1 .27 normal Not Available [facility] ([facility]) [address] [place], [address], 07/01/2024 06:07:47 07/01/19 25 06/30/2024 CMP14 +EGFR eGFR 74 mL/mi n/1.7 3 >59 normal Not Available [facility] ([facility]) [address] [place], [address], 07/01/2024 06:07:47 07/01/19 25 06/30/2024 CMP14 +EGFR BUN/creatini ne ratio 14 10-24 normal Not Available [facility] ([facility]) [address] [facility] [address], [place], [address], 07/01/2024 06:07:47 07/01/19 25 06/30/2024 CMP14 +EGFR sodium 138 mmol/ L 134-14 4 normal Not Available [facility] ([facility]) [address] [facility] [address], [place], [address], 07/01/2024 06:07:47 07/01/19 25 06/30/2024 CMP14 +EGFR potassium 4.1 mmol/ L 3.5-5. 2 normal Not Available [facility] ([facility]) [address] [facility] [place], [address], 07/01/2024 06:07:47 07/01/19 25 06/30/2024 CMP14 +EGFR chloride 103 mmol/ L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 Available Not Available oxycodone -acetamin ophen 5 mg-325 mg tablet TAKE 1 TABLET BY MOUTH EVERY 6 HOURS NEEDED FOR PAIN 12/13 completed Not Available Not Available Not Available erythromy pedro 250 mg tablet THREE TIMES DAILY 02/17 completed RECORDED 02/18/20 13 1:48PM BY JOVANNI RINCON MA, OFFICE VISIT;PT IS NOT SURE ABOUT DOSAGE Not Available Not Available Not Available clonidine HCl 0.2 mg tablet TAKE 1 TABLET BY MOUTH TWICE DAILY NEEDED FOR PANIC ATTACK 07/24 completed Not Available Not Available Not Available magnesium oxide 400 mg (241.3 mg magnesium ) tablet TAKE 1 TABLET BY MOUTH ONCE DAILY AT BEDTIME active Not Available Not Available No t Available OneTouch Ultra Test strips USE 1 STRIP TO CHECK GLUCOSE ONCE DAILY DIRECTED active Not Available Not Available No t Available doxycycli ne monohydra te 100 mg capsule TAKE 1 CAPSULE BY MOUTH TWICE DAILY FOR 5 DAYS 10/23 completed Not Available Not Available Not Available glipizide ER 2.5 mg tablet, extended release 24 hr TAKE ONE TABLET BY MOUTH ONCE DAILY 12/11 completed Not Available Not Available Not Available oseltamiv ir 75 mg capsule TAKE 1 CAPSULE BY MOUTH TWICE DAILY FOR 5 DAYS 07/12 completed Not Available Not Available Not Available diphenhyd ramine 25 mg tablet TAKE 1-2 TABLETS BY ORAL ROUTE AT BEDTIME NEEDED FOR MIGRAINE 03/01 completed Not Available Not Available Not Available haloperid ol 20 mg tablet TAKE 1 TABLET BY MOUTH AT BEDTIME active Not Available Not Available No t Available Guaifenes in AC 10 mg-100 mg/5 mL oral liquid Take 10 mL every day by oral route at bedtime for 10 days. 2015 active Not Available Not Available Not Avai lable levothyro xine 150 mcg tablet TAKE 1 TABLET BY MOUTH ONCE DAILY active Not Available Not Available No t Available haloperid ol 10 mg tablet TAKE 1 TABLET BY MOUTH ONCE DAILY active Not Available Not Available No t Available perphenaz ine 4 mg tablet QHS 05/24 completed RECORDED 05/24/19 11 9:04AM BY SANTY LIZARRAGA MD, AYAKA ON/ DUM;PSYC H Not Available Not Available Not Available Ear Drops (carbamid e peroxide) 6.5 % INSTILL 5 DROPS INTO AFFECTED EAR(S) BY OTIC ROUTE 2 TIMES PER DAY FOR NO MORE THAN 4 DAYS 03/01 completed Not Available Not Available Not Available gabapenti n 300 mg capsule TAKE 1 CAPSULE BY MOUTH 4 TIMES DAILY active Not Available Not Available No t Available Banophen 25 mg capsule TAKE 1 TO 2 CAPSULES BY MOUTH EVERY 6 TO 8 HOURS NEEDED FOR SEVERE MIGRAINE ATTACK active Not Available Not Available No t Available lisinopri l 5 mg tablet TAKE 1 TABLET BY MOUTH ONCE DAILY active Not Available Not Available No t Available gabapenti n 100 mg capsule Take 1 capsule every day by oral route for 30 days. 02/05 completed Not Available Not Available Not Available lorazepam 1 mg tablet Take 1 tablet every day by oral route as needed for 1 day. 12/11 completed Not Available Not Available Not Available ibuprofen 600 mg tablet TAKE 1 TABLET 4 TIMES DAILY WITH MEALS NEEDED. 02/14 completed Not Available Not Available Not Available levofloxa pedro 750 mg tablet 11/13 completed Not Available Not Available Not Available methylpre dnisolone 4 mg tablets in a dose pack TAKE BY MOUTH PER DIRECTIO NS ON PACKAGE 10/30 completed Not Available Not Available Not Available albuterol sulfate HFA 90 mcg/actua tion aerosol inhaler INHALE 2 PUFFS BY MOUTH EVERY 4 HOURS NEEDED active Not Available Not Available No t Available pioglitaz one 30 mg tablet TAKE 1 TABLET BY MOUTH ONCE DAILY active Not Available Not Available No t Available haloperid ol 2 mg tablet TAKE 1 TABLET BY MOUTH ONCE DAILY 11/13 completed Not Available Not Available Not Available guanfacin e 2 mg tablet AT BEDTIME 05/24 completed RECORDED 05/24/19 11 9:03AM BY SANTY LIZARRAGA MD, AYAKA ON/ DUM; Not Available Not Available Not Available topiramat e 100 mg tablet TAKE 1 TABLET BY MOUTH TWICE DAILY 05/28 completed Not Available Not Available Not Available fluoxetin e 20 mg capsule TAKE 1 CAPSULE BY MOUTH ONCE DAILY active Not Available Not Available No t Available fluticaso ne propionat e 50 mcg/actua tion nasal spray,christy pension Inhale 2 sprays every day by intranas al route as directed for 30 days. 03/14 completed Not Available Not Available Not Available metformin ER 500 mg tablet,ex tended release 24 hr Take 4 tablets every day by oral route for 90 days. 02/14 completed Not Available Not Available Not Available lisinopri l 2.5 mg tablet Take 1 tablet by mouth once daily 12/09 completed Not Available Not Available Not Available doxycycli ne hyclate 100 mg tablet Take 1 tablet twice a day by oral route for 10 days. active Not Available Not Available No t Available prazosin 2 mg capsule Take 1 capsule as needed by oral route for 13 days. 09/07 completed Not Available Not Available Not Available naproxen 500 mg tablet Take 1 tablet every day by oral route for 30 days. 03/01 completed Not Available Not Available Not Available nortripty line 50 mg capsule TAKE 1 CAPSULE BY MOUTH TWICE DAILY active Not Available Not Available No t Available perphenaz ine 16 mg tablet Take 1 tablet every day by oral route around the clock for 30 days. 06/07 completed Not Available Not Available Not Available amoxicill in 875 mg-potass ium clavulana te 125 mg tablet TAKE 1 TABLET BY MOUTH EVERY 12 HOURS FOR 5 DAYS 10/30 completed Not Available Not Available Not Available oxycodone 5 mg tablet 12/10 completed Not Available Not Available Not Available bupropion HCl SR 200 mg tablet,12 hr sustained -release BID 05/24 completed RECORDED 05/24/19 11 9:03AM BY SANTY LIZARRAGA MD, ANNOTATI ON/SYLVAIN AUGUSTIN; Not Available Not Available Not Available Mucinex 600 mg tablet, extended release Take 1 tablet every 12 hours by oral route for 10 days. 2015 active Not Available Not Available Not Avai lable aripipraz ole 10 mg tablet START WITH ONE-HALF TABLET ONCE DAILY FOR 2 WEEKS. IF WELL TOLERATE D, INCREASE TO 1 TABLET ONCE DAILY 12/05 completed Not Available Not Available Not Available eletripta n 40 mg tablet TAKE 1 TABLET BY MOUTH AT ONSET OF HEADACHE ; IF NO RELIEF, MAY REPEAT 1 TAB AFTER AT LEAST 2 HOURS; MAX 2 TABS IN 24 HOURS. active Not Available Not Available No t Available cyclobenz aprine 5 mg tablet TAKE 1 TABLET BY MOUTH EVERY DAY AT BEDTIME FOR MUSCLE SPASM FOR 7 DAYS 08/13 completed Not Available Not Available Not Available aripipraz ole 5 mg tablet START BY TAKING 1/2 (ONE-CADEN F) TABLET BY MOUTH ONCE DAILY FOR 2 WEEKS, IF WELL TOLERATE D, INCREASE TO 1 FULL TABLET DAILY 09/08 completed made sugras very high,als o caused dizzines s Not Available Not Available Not Available memantine 10 mg tablet TAKE 1 TABLET BY MOUTH TWICE DAILY active Not Available Not Available No t Available memantine 5 mg tablet TAKE 2 TABLETS BY MOUTH TWICE DAILY 04/09 completed Not Available Not Available Not Available topiramat e 50 mg tablet TAKE 1 TABLET BY MOUTH TWICE DAILY active Not Available Not Available No t Available bromfenac 0.09 % eye drops INSTILL 1 DROP INTO LEFT EYE ONCE DAILY FOR 6 WEEKS DIRECTED 12/05 completed Not Available Not Available Not Available chlorhexi dine gluconate 0.12 % mouthwash PLEASE SEE ATTACHED FOR DETAILED DIRECTIO NS 02/14 completed Not Available Not Available Not Available Aspirin EC QD 08/22 completed RECORDED 08/23/19 11 9:33AM BY JOVANNI RINCON MA, OFFICE VISIT; Not Available Not Available Not Available One Touch Lancets TWO TIMES DAILY 08/13 completed RECORDED 08/08/19 14 10:03AM BY KURT URBANO MA, OFFICE VISIT; Not Available Not Available Not Available blood pressure monitor DAILY MONITORI NG OF BP FOR HTN 02/13 completed RECORDED 04/10/19 12 11:26AM BY JOVANNI RINCON MA, MEDICATI ON AUTO-SANTY CTIVATIO N; Not Available Not Available Not Available OneTouch Ultra Test TEST BS TWO TIMES DAILY 2007 active Not Available Not Available Not Avai lable OneTouch UltraSoft Lancets TWO TIMES DAILY 2007 active RECORDED 05/30/19 08 5:12PM BY YESSENIA Ardon NP, REFILL REQUEST; Not Available Not Available Not Available Symbicort 80 mcg-4.5 mcg/actua tion HFA aerosol inhaler INHALE 2 PUFFS BY MOUTH TWICE DAILY 03/14 completed Not Available Not Available Not Available peg 3350-elec trolytes 236 gram-22.7 4 gram-6.74 gram-5.86 gram solution MIX PER DIRECTIO NS, THEN DRINK AN 8 OZ GLASS BY MOUTH EVERY 10 MINUTES, UNTIL JUG IS FINISHED , OR DIRECTED 08/13 completed Not Available Not Available Not Available GaviLyte- N 420 gram oral solution active Not Available Not Available Not Available Anoro Ellipta 62.5 mcg-25 mcg/actua tion powder for inhalatio n INHALE 1 PUFF BY MOUTH ONCE DAILY active Not Available Not Available No t Available Jardiance 10 mg tablet TAKE 1 TABLET BY MOUTH EVERY DAY 08/28 completed Not Available Not Available Not Available Jardiance 25 mg tablet Take 1 tablet every day by oral route for 90 days. 02/14 completed $430 for 90 day supply Not Available Not Available Not Available Trulicity 1.5 mg/0.5 mL subcutane ous pen injector Inject 1.5 mg every week by subcutan eous route for 90 days. 07/03 completed Not Available Not Available Not Available Trulicity 0.75 mg/0.5 mL subcutane ous pen injector Inject 0.75 mg every week by subcutan eous route for 30 days. 04/11 completed Not Available Not Available Not Available OneTouch Ultra Blue Test Strip Take 1 strip every day by miscell. route as directed . 2020 active Not Available Not Available Not Avai lable Aimovig Autoinjec tor 140 mg/mL subcutane ous auto-inje ctor INJECT 140 MG SUBCUTAN EOUSLY ONCE FOR 30 DAYS 10/16 completed Not Available Not Available Not Available OneTouch Delica Plus Lancet 33 gauge USE 1 LANCET TO CHECK BLOOD GLUCOSE ONCE DAILY active Not Available Not Available No t Available Flublok Quad (PF) 180 mcg (45 mcg x 4)/0.5 mL IM syringe PHARMACI ST ADMINIST ERED IMMUNIZA TION ADMINIST ERED AT TIME OF DISPENSI NG 02/05 completed Not Available Not Available Not Available Vitals Date Recorded Body height Body mass index (BMI) Body weight Heart rate Oxygen saturation Oxygen saturation in Arterial blood by Pulse oximetry Body temperature Systolic blood pressure Diastolic blood pressure Provider Name and Address Organization Details Last Updated DateTime 4 175.26 cm 33.4 kg/m2 564965. 88 g 71 /min 96 % 96 % 98 [degF] 120 mm[Hg] 71 mm[Hg] Jovanni grimm MA [facility] 4 10:11:36 Date Recorded Body height Body mass index (BMI) Body weight Heart rate Body temperature Systolic blood pressure Diastolic blood pressure Provider Name and Address Organization Details Last Updated DateTime 5 175.26 cm 34.4 kg/m2 551303. 02 g 74 /min 97 [degF] 127 mm[Hg] 74 mm[Hg] [facility] 10:37:26 Date Recorded Oxygen saturation Oxygen saturation in Arterial blood by Pulse oximetry Provider Name and Address Organization Details Last Updated DateTime 04/09/2024 97 % 97 % Shalom Aiken MD [address] [facility], [place], [address], [facility] 04/09/2024 10:46:38 Date Recorded Body height Body mass index (BMI) Body weight Oxygen saturation Oxygen saturation in Arterial blood by Pulse oximetry Heart rate Body temperature Systolic blood pressure Diastolic blood pressure Provider Name and Address Organization Details Last Updated DateTime 5 175.26 cm 34 kg/m2 847691. 25 g 99 % 99 % 83 /min 97.7 [degF] 129 mm[Hg] 83 mm[Hg] Kena Redding [facility] 5 13:23:39 Date Recorded Body height Body mass index (BMI) Body weight Heart rate Oxygen saturation Oxygen saturation in Arterial blood by Pulse oximetry Body temperature Systolic blood pressure Diastolic blood pressure Provider Name and Address Organization Details Last Updated DateTime 175.26 cm 33.2 kg/m2 468335. 28 g 88 /min 96 % 96 % 97.6 [degF] 150 mm[Hg] 86 mm[Hg] Rachele Eppersondiego Gramajo [facility] 10:00:42 Date Recorded Systolic blood pressure Diastolic blood pressure Provider Name and Address Organization Details Last Updated DateTime 08/13/2024 118 mm[Hg] 62 mm[Hg] Shalom Aiken MD [address] [address], [place], [address], [facility] 08/13/2024 10:35:47 Social History Question Answer Notes LastModified by Organizat ion Details LastModified Time Tobacco Smoking Status Current Every Day Smoker Santy Lizarraga MD [address] [address], [place], [address], [facility] 12/25/2013 14:15:55 Do You Have An Advance Directive? Yes Information not available 02/21/2022 Is Blood Transfusion Acceptable In An Emergency? Yes Information not available 12/22/2014 What Is Your Level Of Caffeine Consumption? Moderate 1 Cup Of Coffee Daily Information not available 12/22/2014 How Much Tobacco Do You Chew? None Information not available 12/22/2014 Are You Deaf Or Do You Have Serious Difficulty Hearing? No Information not available 02/21/2022 What Type Of Diet Are You Following? DIABETIC Information not available 02/21/2022 Which Illicit Or Recreational Drugs Have You Used? None Information not available 12/22/2014 Have There Been Any Changes To Your Family Or Social Situation? No Information not available 02/21/2022 Do You Take Precautions To Prevent Distracted Driving? Yes Information not available 12/22/2014 How Often Do You Need To Have Someone Help You When You Read Instructions, Pamphlets, Or Other Written Material From Your Doctor Or Pharmacy? Never Information not available 12/22/2014 Have You Served In The ? No Information not available 12/11/2016 Have You Or Anyone In Your Household Had Any Of The Following Symptoms In The Last 14 Days: Sore Throat, Cough, Chills, Body Aches For Unknown Reasons, Shortness Of Breath For Unknown Reasons, Loss Of Smell, Loss Of Taste, Fever At Or Greater Than 100 Degrees Fahrenheit? No Information not available 08/06/2020 Are You Or Anyone In Your Household A Health Care Provider Or Emergency Responder? No Information not available 08/06/2020 To The Best Of Your Knowledge Have You Been In Close Proximity To Any Individual Who Tested Positive For COVID-19? No Information not available 08/06/2020 *AWV ONLY* Are You Presently Prescribed Opioid Medication By PCP Or Specialist? If YES -Provider Assess The Benefit For Other, Non-opioid Pain Therapies Instead, Even If The Patient Does Not Have OUD But Is Possibly At Risk. No Information not available 02/14/2021 Have You Recently Traveled To A COVID-19 High Risk Area Or Gathering In The Last 10 Days? No Information not available 08/06/2020 What Was The Date Of Your Most Recent Tobacco Screening? 08/13/2024 Information not available 08/13/2024 How Many Children Do You Have? 2 Irvin Information not available 03/14/2017 What Is Your Current Pack Years? 20-29packamy black Information not available 08/13/2024 Do You Use Protection During Sex? No Information not available 12/22/2014 Do You Use Your Seat Belt Or Car Seat Routinely? Yes Information not available 02/21/2022 Are You Sexually Active? Yes ([place]) Information not available 12/05/2022 Do You Have Smoke And Carbon Monoxide Detectors In Your Home? Yes Information not available 02/21/2022 At What Age Did You Start Smoking Tobacco? 1980 Information not available 08/13/2024 Are You Passively Exposed To Smoke? No Information not available 12/22/2014 How Much Tobacco Do You Smoke? 0.5 PPD Information not available 04/09/2024 Do You Use Sunscreen Routinely? No Information not available 12/22/2014 How Many Years Have You Smoked Tobacco? 44 Information not available 08/13/2024 Sex: Unknown Functional Status Question Answer Note LastModified by Organizat ion Details LastModified Time Do you use any illicit or recreational drugs? No Information not available 02/21/2022 Do you or have you ever used any other forms of tobacco or nicotine? No Information not available 02/21/2022 What is your level of alcohol consumption? Occasional Information not available 08/13/2024 Do you or have you ever used smokeless tobacco? Never used smokeless tobacco Information not available 02/21/2022 Are you currently employed? Yes part-time ([employer] 15 hours per week) Information not available 12/22/2014 Are you able to walk? YESWOREST Information not available 02/21/2022 Are you able to care for yourself? 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 Occasional active at work; walking dog 5 days per week Information not available 04/09/2024 Mental Status None recorded. Family History Relationship Description Onset Age of this Age Resolved Age Notes LastModified by Organization Details LastModified Time Mother Diabetes mellitus [email or web address] Not available 12:56:54 Mother Depressive disorder [email or web address] s Not available 02/21/2022 11:14:26 Brother Diabetes mellitus [email or web address] Not available 2020 11:32:47 Father Migraine [email or web address] s Not available 02/21/2022 11:14:26 Unspecified Relation Disorder of thyroid gland [email or web address] s Not available 02/21/2022 11:14:26 Unspecified Relation Sleep disorder [email or web address] s Not available 02/21/2022 11:14:26 Medical History Condition Response Hyperthyroidism Y Depression Y Headaches/Migraines Y Anxiety Disorder Y Head Injury/Concussion Y High Cholesterol Y Headaches Y Thyroid Problems Y Acne Y Constipation Y Mental Illness Y Allergies Y Hypertension Y Chicken Pox Y Immunizations Vaccine Type Date Status Note Provider Nam e and Address Organization Details Recorded Time Influenza, split virus, trivalent, preservative 8 completed Not Available [facility] 10/14/2013 14:15:02 pneumococcal polysaccharide PPV23 8 completed Not Available [facility] 10/14/2013 14:15:02 Influenza, split virus, trivalent, preservative 8 completed Not Available [facility] 10/14/2013 14:15:02 Tdap 8 completed Not Available [facility] 10/14/2013 14:15:02 Influenza, split virus, trivalent, preservative 0 completed Not Available [facility] 10/14/2013 14:15:02 Influenza, split virus, trivalent, preservative 1 completed Not Available [facility] 10/14/2013 14:15:02 influenza, seasonal, intradermal, preservative free 3 completed Not Available [facility] 10/14/2013 14:15:02 Influenza, split virus, quadrivalent, preservative 0 completed Not Available [facility] 03/14/2023 12:21:31 COVID-19 vaccine, vector-nr, rS-Ad26, PF, 0.5 mL 1 completed MICHAEL Randhawa [facility] 02/21/2022 11:13:25 Influenza, split virus, quadrivalent, preservative 1 completed Not Available [facility] 03/14/2023 12:21:31 COVID-19 vaccine, vector-nr, rS-Ad26, PF, 0.5 mL 1 completed MICHAEL Riley [facility] 04/26/2021 11:06:24 Influenza, recombinant, quadrivalent, PF 1 completed MICHAEL Riley [facility] 04/26/2021 11:06:24 Influenza, recombinant, quadrivalent, PF 0 completed MICHAEL Riley, [facility] 04/26/2021 11:06:24 Td (adult), 2 Lf tetanus toxoid, preservative free, adsorbed 9 [facility] 11:13:25 Influenza, split virus, quadrivalent, PF 7 completed MICHAEL Randhawa, [facility] 02/21/2022 11:13:25 COVID-19, mRNA, LNP-S, PF, 100 mcg/0.5mL dose or 50 mcg/0.25mL dose 2 [facility] 11:13:25 Influenza, split virus, quadrivalent, PF 8 completed MICHAEL Randhawa, [facility] 02/21/2022 11:13:25 Influenza, split virus, trivalent, PF 5 completed MICHAEL Randhawa, [facility] 02/21/2022 11:13:26 COVID-19, mRNA, LNP-S, bivalent, PF, 50 mcg/0.5 mL or 25mcg/0.25 mL dose 3 completed MICHAEL Riley [facility] 07/03/2022 09:56:22 zoster recombinant 4 completed MICHAEL Lundberg, [facility] 08/29/2023 13:37:13 Pneumococcal conjugate PCV20, polysaccharide [id number] conjugate, adjuvant, PF 4 completed MICHAEL Lundberg, [facility] 08/29/2023 13:37:13 MMR 5 completed MICHAEL Lundberg, [facility] 05/28/2024 13:16:24 zoster recombinant 5 completed Kena Redding MA null, [facility] 05/28/2024 13:16:24 zoster recombinant 4 completed Not Available [facility] 08/13/2024 09:53:54 Pneumococcal conjugate PCV20, polysaccharide [id number] conjugate, adjuvant, PF 4 completed Not Available [facility] 08/13/2024 09:53:55 Influenza, split virus, quadrivalent, PF 9 completed Not Available [facility] 04/19/2019 02:22:10 Influenza, split virus, quadrivalent, PF 2 completed Rachel Lee PA-C [address] [address], [place], [address], [facility] 12/09/2021 11:41:59 Influenza, split virus, quadrivalent, PF 3 completed Rachel Lee PA-C [address] [address], [place], [address], [facility] 12/13/2022 13:39:11 Past Encounters Encounter ID Performer Location Encounter Start Date Encounter Closed Date Diagnosis/Indication Diagnosis SNOMED-CT Code Diagnosis ICD10 Code Diagnosis Note [id number] [facility] [address] [facility] [place] [address] 04/23/2007 00:00:00 [id number] [facility] [facility] [address] [facility] [place] [address] 04/23/2007 00:00:00 [id number] [employer]ce [address] [facility] [facility] [place] [place] [address] 04/23/2007 00:00:00 [id number] [employer] [address] [facility] [place] [address] 04/23/2007 00:00:00 [id number] [employer] [facility] [address] [facility] [place] [address] 04/30/2007 00:00:00 [id number] [address] [facility]ce [address] [place] [address] 04/30/2007 00:00:00 [id number] [facility] [facility] [address] [place] [address] 05/29/2007 00:00:00 [id number] [employer] [address] [facility],[address] [place] [address] 05/29/2007 00:00:00 [id number] [employer] erce [address] [facility],[address] [place] [address] 07/30/2007 00:00:00 [id number] [employer] [address] [facility],[address] [place] [address] 07/30/2007 00:00:00 [id number] [employer] [address] [facility],[address] [place] [address] 07/30/2007 00:00:00 [id number] [employer] [address] [facility],[address] [place] [address] 07/30/2007 00:00:00 [id number] [employer] [address] [facility],[address] [place] [address] 10/29/2007 00:00:00 [id number] [employer] erce [address] [facility],[address] [place] [address] 10/29/2007 00:00:00 [id number] [employer] [address] [facility],[address] [place] [address] 10/29/2007 00:00:00 [id number] [employer]ce [address] [facility],[address] [place] [address] 10/29/2007 00:00:00 [id number] [employer] erce [address] [facility],[address] [place] [address] 02/11/2008 00:00:00 [id number] [employer] erce [address] [facility],[address] [place] [address] 02/11/2008 00:00:00 [id number] [facility] erce [address] [place] [address] 2 02/11/2008 00:00:00 [id number] [facility] erce [address] [place] [address] 2 02/11/2008 00:00:00 [id number] auto[employer] erce [address] [place] [address] 04/09/2008 00:00:00 [id number] auto[employer]Comm erce [address] [facility] [address] [place] [address] 04/09/2008 00:00:00 [id number] auto[employer] erce [address] [facility] [address] [place] [address] 04/09/2008 00:00:00 [id number] [employer] erce [address] [facility],[address] [place] [address] 2 04/27/2008 00:00:00 [id number] auto[employer] erce [address] [facility],[address] [place] [address] 2 05/14/2008 00:00:00 [id number] auto[employer]Comm erce [address] [facility] [address] [place] [address] 2 05/14/2008 00:00:00 [id number] auto[employer]Comm erce [address] [facility],[address] [place] [address] 05/14/2008 00:00:00 [id number] auto[employer]Comm erce [address] [place] [address] 2 05/25/2008 00:00:00 [id number] auto[employer]Comm erce [address] [facility] [address] [place] [address] 05/25/2008 00:00:00 [id number] [employer] erce [address] [facility],[address] [place] [address] 2 05/25/2008 00:00:00 [id number] auto[employer] erce [address] [place] [address] 2 05/25/2008 00:00:00 [id number] auto[employer] erce [address] [place] [address] 2 06/04/2008 00:00:00 [id number] auto[employer] erce [address] [place] [address] 2 06/04/2008 00:00:00 [id number] auto[employer] erce [address] [place] [address] 06/04/2008 00:00:00 [id number] auto[employer]Comm erce [address] [place] [address] 07/03/2008 00:00:00 [id number] auto[employer]Comm erce [address] [facility] [address] [place] [address] 07/20/2008 00:00:00 [id number] auto[employer]Comm erce [address] [facility] [address] [place] [address] 07/20/2008 00:00:00 [id number] autoEComm erce [address] [facility] [address] [place] [address] 2 07/20/2008 00:00:00 [id number] auto[employer]Comm erce [address] [facility] [address] [place] [address] 08/11/2008 00:00:00 [id number] auto[employer]Comm erce [address] [facility] [address] [place] [address] 2 08/11/2008 00:00:00 [id number] auto[employer] erce [address] [place] [address] 2 08/11/2008 00:00:00 [id number] auto[employer]Comm erce [address] [facility] [address] [place] [address] 2 08/11/2008 00:00:00 [id number] auto[employer]Comm erce [address] [facility],[address] [place] [address] 2 08/26/2008 00:00:00 [id number] autoEComm erce [address] [place] [address] 08/26/2008 00:00:00 [id number] auto[employer] erce [address] [place] [address] 2 08/26/2008 00:00:00 [id number] auto[employer]Comm erce [address] [place] [address] 09/17/2008 00:00:00 [id number] auto[employer]Comm erce [address] [place] [address] 2 09/17/2008 00:00:00 [id number] autoEComm erce [address] [facility] [address] [place] [address] 09/17/2008 00:00:00 [id number] auto[employer] erce [address] [facility],[address] [place] [address] 2 10/05/2008 00:00:00 [id number] auto[employer]Comm erce [address] [facility],[address] [place] [address] 10/05/2008 00:00:00 [id number] auto[facility]Comm erce [address] [facility] [address] [place] [address] 10/14/2008 00:00:00 [id number] auto[employer]Comm erce [address] [facility],[address] [place] [address] 10/14/2008 00:00:00 [id number] autoEComm erce [address] [place] [address] 2 10/19/2008 00:00:00 [id number] auto[facility]Comm erce [address] [facility] [address] [place] [address] 2 10/19/2008 00:00:00 [id number] auto[employer]Comm erce [address] [facility],[address] [place] [address] 2 11/11/2008 00:00:00 [id number] auto[employer]Comm erce [address] [place] [address] 11/11/2008 00:00:00 [id number] auto[facility]Comm erce [address] [place] [address] 01/26/2009 00:00:00 [id number] auto[employer]Comm erce [address] [place] [address] 2 01/26/2009 00:00:00 [id number] auto[facility]Comm erce [address] [place] [address] 01/26/2009 00:00:00 [id number] autoEComm erce [address] [place] [address] 2 03/16/2009 00:00:00 [id number] autoEComm erce [address] [facility] [address] [place] [address] 03/16/2009 00:00:00 [id number] autoEComm erce [address] [facility] [address] [place] [address] 05/05/2009 00:00:00 [id number] autoEComm erce [address] [facility] [address] [place] [address] 2 05/05/2009 00:00:00 [id number] autoEComm erce [address] [facility] [address] [place] [address] 05/05/2009 00:00:00 [id number] autoEComm erce [address] [facility] [address] [place] [address] 2 08/23/2009 00:00:00 [id number] autoEComm erce [address] [place] [address] 02/18/2010 00:00:00 [id number] autoEComm erce [address] [facility] [address] [place] [address] 02/18/2010 00:00:00 [id number] auto[facility]Comm erce [address] [facility] [address] [place] [address] 02/18/2010 00:00:00 [id number] auto[employer]Comm erce [address] [place] [address] 2 05/24/2010 00:00:00 [id number] auto[facility]Comm erce [address] [place] [address] 2 07/21/2010 00:00:00 [id number] autoEComm erce [address] [place] [address] 2 07/21/2010 00:00:00 [id number] autoEComm erce [address] [place] [address] 2 08/22/2010 00:00:00 [id number] autoEComm erce [address] [place] [address] 08/22/2010 00:00:00 [id number] autoEComm erce [address] [facility] [address] [place] [address] 2 08/22/2010 00:00:00 [id number] autoEComm erce [address] [facility] [address] [place] [address] 2 12/15/2010 00:00:00 [id number] auto[facility] erce [address] [place] [address] 02/07/2012 00:00:00 [id number] autoEComm erce [address] [facility] [address] [place] [address] 2 02/07/2012 00:00:00 [id number] autoEComm erce [address] [place] [address] 02/07/2012 00:00:00 [id number] autoEComm erce [address] [place] [address] 2 05/16/2012 00:00:00 [id number] autoEComm erce [address] [facility] [address] [place] [address] 2 09/20/2012 00:00:00 [id number] autoEComm erce [address] [place] [address] 2 12/24/2012 00:00:00 [id number] autoEComm erce [address] [place] [address] 2 12/24/2012 00:00:00 [id number] autoEComm erce [address] [place] [address] 2 02/17/2013 00:00:00 [id number] autoEComm erce [address] [facility] [address] [place] [address] 2 02/17/2013 00:00:00 [id number] autoEComm erce [address] [facility],[address] [place] [address] 2 02/17/2013 00:00:00 [id number] autoEComm erce [address] [facility],[address] [place] [address] 2 04/03/2013 00:00:00 [id number] autoEComm erce [address] [facility],[address] [place] [address] 2 07/02/2013 00:00:00 [id number] autoEComm erce [address] [facility],[address] [place] [address] 2 07/02/2013 00:00:00 [id number] autoEComm erce [address] [facility],[address] [place] [address] 2 07/02/2013 00:00:00 [id number] autoEComm erce [address] [facility],[address] [place] [address] 2 07/02/2013 00:00:00 [id number] autoEComm erce [address] [facility],[address] [place] [address] 2 08/07/2013 00:00:00 [id number] autoEComm erce [address] [facility],[address] [place] [address] 2 08/07/2013 00:00:00 [id number] Santy Lizarraga MD Main Office [address] [place] [address] 12/25/2013 13:38:22 12/25/2013 15:44:33 Adult health examination [id number] Type 2 boyd betes mellitus without complication 258587545 Body mass index 30+ - obesity 839615814 Tobacco de pendence syndrome 57938128 245956 MURTAZA Fonseca Main Office [address] [address] [place] [address] 01/08/2014 10:15:10 01/08/2014 11:22:19 Impacted cerumen 82375494 removed successful ly with ear lavage [id number] Santy Lizarraga MD Main Office [address] [address] [place] [address] 06/24/2014 10:39:02 06/24/2014 11:13:57 Type 2 diabetes mellitus without complication 461086576 Lipomatous tumor 152057314 Tobacco de pendence syndrome 97903923 Screening for malignant neoplasm of colon 192765368 [id number] Santy Lizarraga MD Main Office [address] [address] [place] [address] 09/16/2014 10:03:52 09/16/2014 11:17:52 Type 2 diabetes mellitus without complication 277304764 Essential hypertension 51542900 Hypothyroidism 83432875 Hyperlipidemia 30687082 Anemia due to unknown mechanism 77143066 [id number] Santy Lizarraga MD Main Office [address] [address] [place] [address] 12/22/2014 09:48:14 12/22/2014 10:34:50 Type 2 diabetes mellitus without complication 693661224 Essential hypertension 47265637 Hypothyroidism 30282321 Iron defic iency anemia 80089417 Tobacco de pendence syndrome 07948540 [id number] Santy Lizarraga MD Main Office [address] [address] [place] [address] 03/19/2015 09:41:41 03/19/2015 10:38:38 Type 2 diabetes mellitus without complication 865493603 E11.9 Essential hypertension 77477762 I10 Hypothyroidism 29535771 E03.9 Tobacco de pendence syndrome 28189075 F17.290 Body mass index 30+ - obesity 998597791 Z68.33 [id number] Santy Lizarraga MD Main Office [address] [address] [place] [address] 07/02/2015 10:14:09 07/02/2015 11:05:56 Type 2 diabetes mellitus without complication 773298586 E11.9 Essential hypertension 32497068 I10 Hypothyroidism 41837080 E03.9 [id number] Dallas Lee PA-C Main Office [address] [address] [place] [address] 09/08/2015 13:28:30 09/08/2015 14:43:50 Upper respiratory infection 78740429 J06.9 Tobacco de pendence syndrome 06565825 F17.290 Hoarse 27398752 R49.0 [id number] Dallas Lee PA-C Main Office [address] [address] [place] [address] 09/15/2015 08:37:56 09/15/2015 09:31:41 Hoarse 19062623 R49.0 Serous otitis media 8032 7007 H65.03 Acute sinusitis 50355642 J01.90 [id number] Dallas Lee PA-C Main Office [address] [address] [place] [address] 10/14/2015 12:52:25 10/14/2015 13:37:11 Pre-surgery evaluation 700544178 Z01.818 Essential hypertension 18003966 I10 Type 2 boyd betes mellitus without complication 938890927 E11.9 Hypothyroidism 26405806 E03.9 Hyperlipidemia 50005392 E78.5 Tobacco de pendence syndrome 76894034 F17.290 [id number] Santy Lizarraga MD Main Office [address] [address] [place] [address] 12/11/2016 10:54:12 12/11/2016 11:47:51 Type 2 diabetes mellitus without complication 572031777 E11.9 Needs infl uenza immunization 368282833 Z23 Acquired hypothyroidism 833260392 E03.9 Tobacco de pendence syndrome 21726225 F17.290 Body mass index 30+ - obesity 904385742 Z68.30 Z68.32 [id number] Santy Lizarraga MD Main Office [address] [address] [place] [address] 03/14/2017 12:56:31 03/14/2017 13:50:40 Adult health examination 613102215 Z00.00 Type 2 boyd betes mellitus without complication 042244497 E11.9 Hypothyroidism 86375943 E03.9 Essential hypertension 94733440 I10 Hyperlipidemia 57238940 E78.2 Tobacco de pendence syndrome 30955375 F17.200 Bipolar I disorder 70608 6008 F31.9 Obesity 705603236 E66.9 Body mass index 30+ - obesity 577825021 Z68.30 Z68.33 [id number] Rachel Lee PA-C Main Office [address] [address] 06/11/2017 09:52:53 06/11/2017 10:44:58 Type 2 diabetes mellitus without complication 322546749 E11.9 Total time spent teaching and coordinati ng diabetic care 45 minutes. Basic physiology of Type II Diabetes Mellitus was reviewed. Glucose records were reviewed. Pt. was instructed on use of new glucose meter and advised to monitor glucose 3 times per day ; before each main meal. Goal for fasting glucose is 80-130 and 1-2 hrs after the meal under 180. Pt. was instructed on 1 800 jaime ADA diet and given 7 day sample menus to use at home. Pt. was advised to start exercise activity by walking 30 min at least 3 times weekly and increase weekly or by weekly to 4-6 day per week. If unable to walk , pt. should use other exercise modalities /equipment that is stationary at home or in the gym for that amount of time weekly or water exercises. Continue current meds. F/u 6 m. Body mass index 30+ - obesity 468605026 E66.9 Z68.35 Z68.34 [id number] Santy Lizarraga MD Main Office [address] [address] 09/10/2017 10:16:39 09/10/2017 11:23:35 Hepatitis C screening 752288330 Z11.59 Type 2 boyd betes mellitus without complication 532300312 E11.9 Essential hypertension 33568937 I10 Hypothyroidism 67004720 E03.9 Multiple n odules of lung 963992545 R91.8 Obesity 434664920 E66.9 Body mass index 30+ - obesity 650984918 Z68.30 Tobacco de pendence syndrome 48502074 F17.200 Bipolar I disorder 29623 6008 F31.9 [id number] Rachel Lee PA-C Main Office [address] [address] [place] [address] 12/10/2017 09:22:09 12/10/2017 10:09:00 Type 2 diabetes mellitus without complication 086575419 E11.9 STable type II Diabetes w/o complicati ons. Continue current m eds. Lower total calories and increase exercise activity. Test glucose 1-3 times daily . F/u 4 m. Needs infl uenza immunization 180916086 Z23 Body mass index 30+ - obesity 993044333 E66.9 Z68.35 Z68.32 [id number] Dallas Lee PA-C Main Office [address] [address] [place] [address] 12/17/2017 11:22:42 12/17/2017 12:21:26 Impacted cerumen 73832628 H61.23 [id number] Rachel Lee PA-C Main Office [address] [address] [place] [address] 02/12/2018 13:25:55 02/12/2018 14:22:18 Migraine 65881758 G43.909 Pt on multiple meds w/ chronic AGUIRRE w/o focal deficit. Refer to neurology for further eval. Snoring 41574437 R06.83 [id number] Janey bhatti MD Main Office [address] [address] [place] [address] 06/07/2018 10:51:52 06/07/2018 11:42:32 Requires a tetanus booster 180589877 Z23 Uncontroll ed type 2 diabetes mellitus 155783299 E11.65 Worsened diabetic control likely due to decreased physical activity and higher calories since the last visit. Pt. is advised to return to testing more than just in the am. Repeat A1c in 3 m. Repeat BMP and microalbum in today. F/u 4 m. Body mass index 30+ - obesity 694948870 E66.9 Z68.32 [id number] Santy Lizarraga MD Main Office [address] [address] [place] [address] 07/05/2018 10:04:54 07/05/2018 10:42:08 Adult health examination 412615874 Z00.00 Acquired hypothyroidism 003595313 E03.9 Type 2 boyd betes mellitus without complication 444882604 E11.9 Essential hypertension 36284512 I10 Tobacco de pendence syndrome 03049420 F17.200 Iron defic iency anemia 72460169 D50.9 Obesity 380415652 E66.9 Z68.30 Bipolar I disorder 46360 6008 F31.9 [id number] Santy Lizarraga MD Main Office [address] [address] 10/07/2018 10:48:37 10/07/2018 11:25:48 Type 2 diabetes mellitus without complication 166795055 E11.9 STable type II Diabetes w/o complicati ons. Continue current m eds. Lower total calories and increase exercise activity. Test glucose 1-3 times daily . F/u 3-4 m. Body mass index 30+ - obesity 182493294 Z68.32 [id number] Santy Lizarraga MD Main Office [address] [address] 02/19/2019 10:20:25 02/19/2019 11:04:28 Type 2 diabetes mellitus without complication 162299795 E11.9 STable type II Diabetes but with slight increase in A1c since the last visit. Continue current meds but test daily and if glucose readings are under 70 , call office. Glipizide will be reduced. . Lower total calories and increase exercise activity. Test glucose 1-3 times daily . F/u 3 m. Needs infl uenza immunization 651784561 Z23 Body mass index 30+ - obesity 109903624 Z68.33 Obesity 028958481 E66.9 [id number] Santy Lizarraga MD Main Office [address] [address] 02/06/2020 10:57:23 02/06/2020 12:01:42 Adult health examination 640712045 Z00.00 vaccines are up to date. Type 2 boyd betes mellitus without complication 150307630 E11.9 A1c is a bit above norm. Pt. is advised to lower portions and increase exercise to daily walking. Increase glipizide ER 5 mg to 1.5 tabs daily. Continue metformin. Major depr ession single episode, in partial remission 82028728 F32.4 f/u with psych Acquired hypothyroidism 079693956 E03.9 repeat TSH , continue current meds. Hyperlipidemia 50045251 E78.5 repeat fasting labs. Contineu statin therapy. Impacted c erumen of bilateral ears 1538313424 971687 H61.23 Obesity 479552386 E66.9 Benign pro static hyperplasia 470543628 N40.0 Body mass index 30+ - obesity 653198611 Z68.33 Iron defic iency anemia 84354765 D50.9 Migraine 93331870 G43.90 9 F/u with neurologis t. Continue current meds. Essential hypertension 86954897 I10 stable control. Bipolar I disorder 87597 6008 F31.9 f/u with psych [id number] Shalom Aiken MD Main Office [address] [facility] [address] [facility] [place] [address] 06/14/2020 10:26:17 06/14/2020 11:18:01 Finding of sensation of musculoskeletal structure of neck 336986418 M54.2 Given the dusky appearance of the fingertips , the poor capillary refills the weak radial pulses, the numbness and tingling of the right arm, the weakness of the right arm and his history of long-term smoking I believe that this required emergent medical evaluation at the hospital as they could be a life-threa tening event such as the loss of a limb from ischemia, or cord compressio n. Thus advised the patient that he should be evaluated in the emergency room he agreed to go to emergency room immediatel y for further evaluation evaluation as I hope that he would get an MRI imaging, and evaluated by the vascular surgeon to evaluate for for vascular compromise patient was aware of these concerns, and expresses understand ing. Essential hypertension 06605214 I10 I believe the elevation in blood pressure is due to the acute event with the fact that he was having pain of the right upper extremity. He was sent to emergency room for further management of that where his blood pressure should also be monitored. Peripheral arterial occlusive disease 235554484 I73.9 addendum June 15, 2020 patient went to the emergency room the day prior as was advised he was discharged as this was just diagnosed with a shoulder strain however given the findings from the day prior when he was in the office and was sent to emergency room I felt the patient warranted further work-up at for the following reason it was also stated in the emergency department note that he had poorly palpable pulses in the right hand, they did note some discolorat ion and had put this to an ink stain however I disagree with this finding as hands were duskier, and it was cool to the touch in addition he had significan t risk factors this includes his history with tobacco use, hypertensi on and hyperlipid emia. Thus have gone ahead and ordered an urgent CT angiogram of the upper extremity. Cervical radiculopathy 67972477 M54.12 addendum: June 15, 2020 as stated prior he was discharged from the emergency room to be followed up at [facility] for an MRI and steroid injection and to continue Motrin at home. Patient called today liv nagel significan t pain 01/09 thus I have gone ahead and provide him with some prednisone to be taken with meals and placed an urgent MRI evaluation ofthe cervical spine to evaluate for interval change which she had done ~2 years ago; I suspect that the findings would be worsened. Patient has a schedule to see [facility] on at 8:30 AM we hope to be able to obtain MRI priors to his visit.Othe r analgesic options were also explored this includes opioid but given patient's significan t medication interactio n I felt that steroids would be the safer option for this patient. [id number] Shalom Aiken MD Main Office [address] [place] [address] 06/15/2020 09:49:06 06/15/2020 23:36:26 [id number] Rachel Lee PA-C Main Office [address] [place] [address] 07/02/2020 12:59:07 07/02/2020 13:37:58 Uncontrolled type 2 diabetes mellitus 382006949 E11.65 Worsened diabetic control likely due to decreased physical activity and higher calories since the last visit. Pt. is advised to return to testing more than just in the am.Continu e current meds. Start jardiance at 10 mg daily. Possible side effects discussed such as increased thirst and urination for the first 4-6 weeks. Pt. is advised to increase hydration. F/u in 6 weeks with repeat A1c and BMP. [id number] Janey bhatti MD Main Office 3640 [facility] [address] [place] [address] 08/06/2020 14:24:25 08/06/2020 15:21:45 Tobacco dependence syndrome 33418303 F17.200 Encouraged pt to cut back on smoking Type 2 boyd betes mellitus without complication 530857858 E11.9 Diabetes has been fairly well controlled , he is compliant with meds. Discussed stopping metformin the day before, holding glipizide and jardiance am of surgery Pre-surger y evaluation 080108910 Z01.818 Patient is at low risk for cardiopulm onary complicati ons with planned procedure based on comorbidit ies, good exertional tolerance and overall procedure risk. Patient advised to avoid aspirin and NSAIDS for 7 days prior. Pt given instructio ns about diabetic meds, he may take psych meds , anestheia to determine if any interactio ns with type of GA chosen. Will need to be monitored for increased sedation due to meds. May proceed to scheduled surgery as planned. Serrano 0.13% Bipolar I disorder 34437 6008 F31.9 controlled on current meds [id number] Rachel Lee PA-C Main Office [address] [place] [address] [place] [address] 09/01/2020 13:38:02 09/01/2020 14:25:20 Uncontrolled type 2 diabetes mellitus 255180235 E11.65 Improving diabetic control, but A1c is not at goal. We will increase jardiance to 25 mg daily and lower glipizide ER to 5 mg daily to avoid hypoglycem ia. Metformin switch to ER formulatio n at 2000 mg daily. Continue low calories diet and exercise. F/u 3 m. NdxwfcD0x and BMP in 6 weeks. [id number] Pantera Shields MD Telehealt h 3640 [facility] [address] [place] [address] 12/13/2020 08:09:49 12/13/2020 10:39:47 Uncontrolled type 2 diabetes mellitus 096477202 E11.65 Improved diabetic control with current meds. Pt. struggles to pay for Jardiance, but wishes to stay on it for now. Continue metformin and glipizide er as he is not experienci ng hypoglycem ia. F/u in office in January with new PCP. 6months with me. [id number] Shalom Aiken MD Main Office 3640 [facility] [address] [facility] [place] [address] 02/14/2021 10:54:13 02/14/2021 12:21:50 Adult health examination 404497407 Z00.00 Patient was counseled on healthy diet, exercise and nutrition due to Body mass index is 32.5 kg/m? ? ?. Last PSADate: 06/02/20Resu lt: 0.5 Last Colonoscop y:Date: 10/16/14Res ult: wnlPlan:re peat 10 yrs Vaccines:T d:06/07/18Zo ster: script providedPC V13: not [id number]: 04/30/07Inf luenza: 01/20/21Co vid: 07/10/20, advised to get booster Routine labs today Immunizati on status reviewed. Will screen based on risk factors. Regular dental and ophtho care advised as well as seat belt and sunscreen use. Distracted driving discussed. Medication reconciled . Advance directives discussed. Tobacco de pendence syndrome 03656189 F17.200 20 pack year hx.Low dose CT discussed. Patient meets current guideline for screening will see if insurance will cover.Cons idering to cut down with smoking.> 3 min spent counseling . Hypothyroidism 16921600 E03.9 Uncontroll ed type 2 diabetes mellitus 614466901 E11.65 A1c and microalbum in ordered by VMAdvised to f/u and get labs. Fatigue 24810378 R53.83 Hyperlipidemia 12789503 E78.5 Varicella vaccination 68 178022 Z23 Screening for malignant neoplasm of lung 452322944 Z87.891 Eligible patients must have >=30 pack years Bipolar I disorder 18812 6008 F31.9 Currently having bad day denies homocidal or suicidal ideation at present time, no plan.Advis ed and he plans to reach psychiatri st today.Michelle is hot line provided. Body mass index 30+ - obesity 983879610 E66.9 - Diet and exercise discussed- Patient made aware of risks of obesity- Encouraged to loose weight.- Avoid starchy and fatty food- Encouraged use of green vegetables and fruits Obesity 284897152 E66.9 Impacted c erumen of bilateral ears 3962562071 396635 H61.23 Constipation 49133124 K5 9.00 On ROS noted constipati on past 2 days, has not had bowel movement.N otes he is passing gas.Denies abd pain or blood in stool.Advi sed high fiber diet and drinking plenty of fluidsMirl ax provided. [id number] Oskar Burgess MD Main Office [address] [address] 04/26/2021 10:54:44 04/26/2021 11:31:49 Uncontrolled type 2 diabetes mellitus 745105038 E11.65 Uncontroll ed blood sugars due to failure to follow diabetic diet. Pt. is compliant with mds. Continue metfromin max dose and glipizide er 5 mg. Add Jardiance at 10 mg daily. We reviewed side effects to expect and I advised p. to increase daily hydration. We discussed that it might on occasion cause archana balanitis to be on a look out for this. WE will repeat fastig labs with lipids and microalbum in as well as CMP in no later than 6 weeks. If A1c kis coming down , I will see Adam in 3 m. Hypothyroidism 93211738 E03.9 [id number] Shalom Aiken MD Main Office [address] [address] 12/09/2021 10:57:42 12/09/2021 11:36:46 Essential hypertension 43800140 I10 Increase lisinopril to 5 mg daily. Repeat bmp and microalbum in. Follow low sodium diet and work on weight reduction. Check bp weekly at home. Needs infl uenza immunization 199590481 Z23 Uncontroll ed type 2 diabetes mellitus 788625288 E11.65 A1c is not at goal. Pt. can n ot afford Jardiance. He will continue glipizide and metformn and we will add another generic pioglitazo ne at 30 mg daily. F/u in January with PCP , with me in 4 m. [id number] Shalom Aiken MD Main Office [address] [address] 02/21/2022 11:06:07 02/21/2022 12:01:38 Adult health examination 879439477 Z00.00 Patient was counseled on healthy diet, exercise and nutrition due to Body mass index is 34.1 kg/m? ? ?. Last PSADate: 06/02/20Resu lt: 0.5Plan: Had shared decision, wants to have screened understand risk and benefits. Last Colonoscop y:Date: 10/16/14Res ult: wnlPlan:re peat 10 yrs Vaccines:T d:06/07/18Zo ster rec: script providedPC V20: not [id number]: 04/30/07Inf luenza: 12/09/21Covi d: 07/10/20, 03/05/21, advised to get bivalent Routine labs today Immunizati on status reviewed. Will screen based on risk factors. Regular dental and ophtho care advised as well as seat belt and sunscreen use. Distracted driving discussed. Medication reconciled . Advance directives discussed. Tobacco de pendence syndrome 21376163 F17.200 20 pack year hx.Cont LDT> 3 min spent counseling , has plans has yet to set date. Hypothyroidism 28087171 E03.9 Uncontroll ed type 2 diabetes mellitus 966457729 E11.65 Follows VM, cont with current regimen till visit.HBA1 C f0hdzixi orderedOn aceAspirin EC 81 mg po advisedFee t examined today, advised to also check regularly and use own clippers/Y early Ophthalmol ogy exam advised.Li pid profile ordered, on statin.Cou nselled about regular physical activityCo unselled on diet- Patient advised regarding risks/sign s/symptoms of hypoglycem ia. Counseled to carry a snack in case of emergencie sPPSV23 done.Micro albumin done Varicella vaccination 68 024388 Z23 Bipolar I disorder 17474 6008 F31.9 Advised and he plans to reach psychiatri st Follows Dr. Barajas has apt in Apr. Anemia due to unknown mechanism 37930551 D64.9 Will stop iron he will check today and again in 3mo. Essential hypertension 00298476 I10 I believe the elevation in blood pressure is due to the acute event with the fact that he was having pain of the right upper extremity. He was sent to emergency room for further management of that where his blood pressure should also be monitored. Fatigue 56496980 R53.83 Hyperlipidemia 53291327 E78.5 Schizophrenia 77259589 F 20.9 Tells me saw clovermya and was dx with this.will try to get records. Nocturia 837693576 R35.1 Long-term drug therapy 998058486 Z79.84 Metformin Use Body mass index 30+ - obesity 665231944 Z68.30 E66.9 - Diet and exercise discussed- Patient made aware of risks of obesity- Encouraged to loose weight.- Avoid starchy and fatty food- Encouraged use of green vegetables and fruits Obesity 430976822 E66.9 [id number] Shalom Aiken MD Main Office 3640 [facility] [address] [facility] [address] 03/01/2022 13:41:31 03/01/2022 14:36:39 Uncontrolled type 2 diabetes mellitus 043233079 E11.65 A1c is elevated at 8%. PT.is advised to try GLP-1 Trulicity at 0.75 mg weekly. WE discussed possible side effects of medication and injections were demonstrat ed with demo device.Pt. will continue other anti diabetics and return after starting new medication in 6 weeks. Visual disturbance 86897 001 H53.9 recommend to see retinal specialist for check , but most likely is due to increasing glucose readings. Essential hypertension 16934044 I10 Stable HTN. Continue low sodium diet and lisinopril . [id number] Shalom Aiken MD Main Office [address] [place] [address] 2022 09:25:49 2022 10:10:08 Essential hypertension 03421759 I10 Stable HTN. Continue low sodium diet and lisinopril . Type 2 boyd betes mellitus without complication 587772721 E11.9 Much improved diabetic control. Lower metformin to 1000 mg daily , but we will increase Trulicity to 1.5 mg weekly to promote further appetite suppressio n and weight loss. F/u 3-4 m. [id number] Shalom Aiken MD Telehealt h 3640 [facility] [address] [facility] [address] 07/03/2022 09:20:23 07/03/2022 11:13:19 Type 2 diabetes mellitus without complication 323391211 E11.9 Stable diabetic control on current meds, but pt. can not afford Trulicity now. He will inject last pen and after a week will increase glipizide ER from 5 to 10 mg. Continue max metformin and pioglitazo ne 20 . PT.is advised to keep total calories down and avoids sweets and excess carbs. F/u 6 weeks in office plus repeat A1c. [id number] Janice gonsales, [employer]ING SERVER Main Office 3640 [facility] [address] [facility] [place] [address] 07/24/2022 08:52:22 07/24/2022 09:48:49 Pre-surgery evaluation 467279930 Z01.818 Patient is at low risk for cardiopulm onary complicati ons with planned procedure based on comorbidit ies, good exertional tolerance and overall procedure risk. Patient advised to avoid aspirin and NSAIDS for 7 days prior. Pt given instructio ns about diabetic meds (hold metformin for 24 hours before and day of, hold glipizide morning of, he should take only necessary psych meds before surgery. He will check with Anjali Wise (mental health prescriber ) about meds to take and hold until after procedure. . Will need to be monitored for increased sedation due to meds. May proceed to scheduled surgery as planned. Serrano 0.13% EKG RBBB, reviewed with Dr Aiken Bilateral cataracts 9572 2003 H26.9 having surgery Renal diso rder due to type 2 diabetes mellitus 368592547 E11.29 stable. Diabetes has been well controlled recently. He is compliant with meds. Discussed stopping metformin the day before, holding glipizide am of surgery good improvemen t with change in meds and better diet. Hgb a1c down to 6.2% Bipolar I disorder 80659 6008 F31.9 controlled on current meds Essential hypertension 85884865 I10 [id number] Shalom Aiken MD Main Office 3640 [facility] [address] [place] [address] 09/08/2022 10:57:17 09/08/2022 11:40:25 Type 2 diabetes mellitus without complication 799901459 E11.9 Increase in A1c secondary to trial of aripiprazo le by psych which raised glucose for 3 weeks in the past month. Now pt is off this med , we will bring glipizide er back down to 5 mg. Continue metformin and pioglitazo ne. Check bmp. F/u 4 m. 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 Will start medrol katharina, abx (aware to not take with calcium products, but take with meal to limit nausea, risk of photosensi tivity discussed) . Albuterol sent. Will get cxr, follow up 1 week.Aware if can't speak in full sentences then go to ED Upper resp iratory infection 15741999 J06.9 Tylenol 15mg/kg for pain or fever q6h. Throat Lozenges, salt water gargle, adequate hydration enforced, saline sprays, rest advised, humidifier use enforced. [id number] Shalom Aiken MD Main Office [address] [place] [address] [place] [address] 10/23/2022 13:25:46 10/23/2022 14:10:16 Acute exacerbation of chronic obstructive pulmonary disease 113279208 J44.1 Will tx for presumptiv e COPD exacerbati on given custodial smoking.Sm oking exacerbati on discussed. Will do prednisone lower dose.Will do nebulizer to see if he tolerates betterFoll ow up 1 week.Aware if can't speak in full sentences then go to ED Upper resp iratory infection 23466061 J06.9 Tylenol 15mg/kg for pain or fever q6h. Throat Lozenges, salt water gargle, adequate hydration enforced, saline sprays, rest advised, humidifier use enforced. [id number] Shalom Aiken MD Main Office [address] [place] [address] [place] [address] 10/30/2022 13:38:25 10/30/2022 14:26:12 Acute exacerbation of chronic obstructive pulmonary disease 553645834 J44.1 sx better by 70%, advised neb use PRN, will get PFT.Follow up for resolution in 5 weeks. Chronic ob structive pulmonary disease 99978971 J44.9 [id number] Santy Lizarraga MD Telehealt h [address] [place] [address] [place] [address] 11/13/2022 12:43:33 11/14/2022 11:05:03 Chronic obstructive pulmonary disease 28249103 J44.9 Night sweats 38406141 R6 1 [id number] Shalom Aiken MD Main Office [address] [place] [address] [place] [address] 12/05/2022 13:54:36 12/05/2022 14:22:37 Chronic obstructive pulmonary disease 51191416 J44.9 sx better, will continue with inhaler.he did not go for PFT they tried to call him to schedule. He has number advised to call for apt. Compliance and importance discussed. Hoarse 50532958 R49.0 occurred prior to steroid inhaler use. Will get ent eval as it has been 3mo and he is a smoker. Night sweats 74530883 R6 1 Notes better, thus will continue to monitor. [id number] Rachel Lee PA-C Main Office [address] [place] [address] [place] [address] 12/13/2022 13:08:26 12/13/2022 13:42:39 Type 2 diabetes mellitus without complication 971360989 E11.9 Stable diabetes. Repeat A1c and microalbum in today. Continue current medication s. F/u 3-4 m. Needs infl uenza immunization 077138561 Z23 [id number] Shalom Aiken MD Main Office [address] [place] [address] [place] [address] 03/14/2023 10:56:15 03/14/2023 11:44:18 Type 2 diabetes mellitus without complication 408525300 E11.9 HA1c increased at 7.3% today. Continue current medication s. Work on improving dit and increase exercise activity. F/u 4 m. Essential hypertension 20289978 I10 Stable HTN. Continue low sodium diet and lisinopril . Hypoglycemia 121193331 E 16.2 Pt reports symptomati c hypoglycem ia 1-2x a week while at work overnight. Strongly encouraged pt to bring glucose monitor to work as well as have an extra snack on hand to prevent hypoglycem ia. Call me if readings is under 55 for med adjustment . Re educated pt on hypoglycem ia management and to report back to us if he has any episodes of glucose <55. [id number] MEGHNA FERNANDEZ MD Main Office [address] [address] 07/13/2023 09:58:19 07/13/2023 10:29:49 Uncontrolled type 2 diabetes mellitus 227481424 E11.65 A1c is above goal at 7.4%. Recommend to begin jardiance at 10 mg daily , lower glipizide er to 2.5 mg , continue pioglitazo ne 30 and max dose metformin. We discussed possible side effects of electrolyt e depletion with Jardiance. Pt. is advised to increase hydration and have labs done in 2 weeks. F/u 3 m. Essential hypertension 95516759 I10 Stable HTN. Continue low sodium diet and lisinopril . Hyperlipidemia 45199600 E78.5 repeat fasting labs. continue statin therapy. Type 2 boyd betes mellitus without complication 468033502 E11.9 HA1c increased at 7.3% today. Continue current medication s. Work on improving dit and increase exercise activity. F/u 4 m. [id number] Shalom Aiken MD Main Office [address] [address] 07/16/2023 13:58:24 07/16/2023 14:30:21 Adult health examination 297481401 Z00.00 Patient was counseled on healthy diet, exercise and nutrition due to Body mass index is 33.2 kg/m? ? ?. Last PSADate: 06/02/20Resu lt: 0.5Plan: Had shared decision, wants to have screened understand risk and benefits. Last Colonoscop y:Date: 10/16/14Res ult: wnlPlan:re peat 10 yrs Vaccines:T d:06/07/18Zo ster rec: script providedRS V: Script [id number] : script givenPPSV2 3: 04/30/07Inf luenza: 12/13/22Cov id: encourage updated vaccineScr ipt for vaccine given, advised to spread each vaccine 2 weeks apart so we can monitor if he develops any reaction, with the exception of Shingles which is 2-6 months as long as he does not have an outbreak. Routine labs today, reminded to also get VM labs done. Immunizati on status reviewed. Will screen based on risk factors. Regular dental and ophtho care advised as well as seat belt and sunscreen use. Distracted driving discussed. Medication reconciled . Advance directives discussed. Nocturia 227308161 R35.1 Long-term drug therapy 454301650 Z79.84 Metformin Use Administra tion of pneumococcal vaccine 32584975 Z23 Varicella vaccination 68 942160 Z23 Administra tion of viral vaccine 95105060 Z29.11 Bipolar I disorder 65906 6008 F31.9 Followed by brett Chan [employer], follows every mo.Has had thoughts of self harm but not present and is working closely with psych, no active plan. Hypothyroidism 59865346 E03.9 Tobacco de pendence syndrome 20855539 F17.200 20 pack year hx.Cont LDT> 3 min spent counseling , has plans has yet to set date. Nicotine dependence 5629 4008 Z87.891 LDCT Lung Cancer Screening Program Annual Order Chronic ob structive pulmonary disease 14431140 J44.9 sx better, will continue with inhaler.he did not go for PFT they tried to call him to schedule. He has number advised to call for apt. Compliance and importance discussed. Schizoaffe ctive disorder, bipolar type 35120982 F25.0 Followed by brett Chan, follows every mo.Has had thoughts of self harm but not present and is working closely with psych, no active plan.Jj Chan NP Essential hypertension 87336761 I10 I believe the elevation in blood pressure is due to the acute event with the fact that he was having pain of the right upper extremity. He was sent to emergency room for further management of that where his blood pressure should also be monitored. [id number] Shalom Aiken MD Main Office 3640 [facility] [address] [facility] [place] [address] 08/29/2023 13:30:35 08/29/2023 14:01:42 Chronic obstructive pulmonary disease 27964802 J44.9 Will start anoro ellipta.Co nt. what he thinks to have albuterol prn.Will get pftSmoking cessation encouraged .Follow up 1 mo. [id number] Shalom Aiken MD Main Office [address] [place] [address] [place] [address] 10/02/2023 13:26:57 10/02/2023 14:21:37 Chronic obstructive pulmonary disease 53602782 J44.9 He was not able to start anoro ellipta due to cost he is going to look for coupons.Co nt. what he thinks to have albuterol prn.Notes he had pft will try to get resultSmok ing cessation encouraged . Multiple n odules of lung 707920776 R91.8 [address]pt 10/19 [id number] Pantera Shields MD Main Office [address] [place] [address] [place] [address] 10/17/2023 09:59:32 10/17/2023 10:24:44 Type 2 diabetes mellitus without complication 057799908 E11.9 HA1c is in range with current treatment plan. PT. was encouraged to exercise more and lower total calorie intake as discussed. Labs done 3 days ago discussed with pt. F/u 4 m. Screening for malignant neoplasm of colon 738121131 Z12.11 [id number] Pantera Shields MD Main Office [address] [place] [address] [place] [address] 11/20/2023 14:07:18 11/20/2023 14:08:09 [id number] Shalom Aiken MD Main Office [address] [place] [address] [place] [address] 04/09/2024 10:26:20 04/09/2024 11:09:15 Chronic obstructive pulmonary disease 37909198 J44.9 He restarted anoro ellipta, notes better control less use of albuterol. Smoking cessation encouraged . Multiple n odules of lung 481240982 R91.8 Had repeat scan with thoracic which showed nodule resolved, repeat LDCT in 12/31/24 Microcytic anemia 900119 007 D50.9 Has apt with GI 04/15/24, reminded him.Referr al also printed for him. Tobacco de pendence syndrome 02568692 F17.200 20 pack year hx.Cont LDT> 3 min spent counseling he wants to quite, reviewed options he will do patches he promised me he will not smoke while doing patch and gum, reviewed risk of nicotine toxicity. Use gum when he has urge to smokeFollo w up ~6 weeks. [id number] Oskar Burgess MD Main Office 3640 [facility] [address] [facility] [place] [address] 05/28/2024 13:10:34 05/28/2024 13:49:29 Type 2 diabetes mellitus without complication 195898504 E11.9 HA1c is slightly above normal range at 7.3%. Pt. had recent hypoglycem ia at work . Currently takes glipizide er 5 mg along with pioglitazo ne and metformin. Previously started on Jardiance , but could not afford it. Pt. was encouraged to exercise more and lower total calories . Lower glipizide to 2.5 mg daily due to glucose drops about once every couple of months , usually at work. Continue metformin and pioglitazo ne. F/u 3-4 m. Essential hypertension 84168398 I10 Stable HTN. Continue low sodium diet and lisinopril . [id number] Shalom Aiken MD Main Office 3640 [facility] [address] [facility] [place] [address] 08/13/2024 09:51:56 08/13/2024 10:39:33 Adult health examination [id number] Z00.00 Patient was counseled on healthy diet, exercise and nutrition due to Body mass index is 33.2 kg/m? ? ?. Last PSADate: 10/15/23Res ult: 0.3Plan: Had shared decision, wants to have screened understand risk and benefits. Last Colonoscop y:Date: 10/16/14Res ult: wnlPlan: has colo and egd scheduled due to anemia Vaccines:T d:06/07/18Zo ster rec: 07/22/23, 05/22/24RSV : Script [id number] : 07/22/23PPS V23: 04/30/07Inf luenza: yearly flu encouraged Covid: encourage updated vaccine Script for vaccine given, advised to spread each vaccine 2 weeks apart so we can monitor if he develops any reaction, with the exception of Shingles which is 2-6 months as long as he does not have an outbreak. Routine labs today, reminded to also get VM labs done. Immunizati on status reviewed. Will screen based on risk factors. Regular dental and ophtho care advised as well as seat belt and sunscreen use. Distracted driving discussed. Medication reconciled . Advance directives discussed. Nocturia [id number] R35.1 Long-term drug therapy [id number] Z79.84 Metformin Use Hypothyroidism 49096464 E03.9 Iron defic iency anemia 30624130 D50.9 Following GI, plan for EGD/COLO Schizoaffe ctive disorder, bipolar type 41683007 F25.0 Followed by psych Omar Chan, follows every mo.Has had thoughts of self harm but not present and is working closely with psych, no active plan.Jj Chan [employer] SERV[employer] Essential hypertension [id number] I10 I believe the elevation in blood pressure is due to the acute event with the fact that he was having pain of the right upper extremity. He was sent to emergency room for further management of that where his blood pressure should also be monitored. Hyperlipidemia 21869007 E78.5 Nicotine dependence 5629 4008 Z87.891 LDCT Lung Cancer Screening Program Annual Order Type 2 boyd betes mellitus without complication [id number] E11.9 Migraine 15773143 G43.90 9 stable, follows neurologis t. Obesity 188563330 E66.9 Tobacco de pendence syndrome 00358919 F17.200 20 pack year hx.Cont LDT> 3 min spent counseling he wants to quite, reviewed options. No motivation for cessation, risk discussed. Administra tion of viral vaccine 16738139 Z29.11 Health Concerns Section Related Observation LastModified by Organization Detai ls LastModified Time None Recorded Concern Status LastModified by Organization Details LastModified Time None Recorded Advance Directives Directive Y: Payers Encounter Date Sequence Insurance Name Policy Number Policy Gates Covered Member ID Gates Member ID Guarantor Name 10/17/2023 1 [employer] (MEDICARE REPLACEMENT/ ADVANTAGE - PPO) [id number] Adam Villavicencio Stormy [id number] Adam Burrows 11/20/2023 1 [employer] (MEDICARE REPLACEMENT/ ADVANTAGE - PPO) [id number] Adam Mcdanielty [id number] Adam Elliottnerty 04/09/2024 1 [employer] (MEDICARE REPLACEMENT/ ADVANTAGE - PPO) [id number] Mcdanielty [id number] Adam Burrows 05/28/2024 1 [employer] (MEDICARE REPLACEMENT/ ADVANTAGE - PPO) [id number] Mcdanielty [id number] Adam Burrows 08/13/2024 1 [employer] (MEDICARE REPLACEMENT/ ADVANTAGE - PPO) [id number] Mcdanielty [id number] Adam Burrows Notes Date Note Type Note Provider Name and Address Organization Details Recorded Time 10/17/2023 text/html Diabetes F/URepo rted bypatient.Context:norm al range of home blood sugars (in the low 100s); seeing eye doctor regularly; checking feet regularly; not missing doses of medications; no side effects from medications;not taking aspirin daily Associated Symptoms:no weight loss; no dizziness; no sweats; no headaches; no confusion; no increased thirst; no increased appetite; no increased urination; no blurred vision; no numbness of feet; no calluses on feet;weight gain ( lbs)Notes:HGA1c today is n target at 6.8 %.Meds: pioglitazone 30, metfromin max dose.Pt. has diabetic eye exam today. NO change in vision reported. NO foot pain. Pt. does not see dehydrogenation converter helper. Rachel Lee PA-C [address], [address], [facility] 10/17/2023 10:29:02 04/09/2024 text/html COPDReported bypatient.Onset/Timing :chronic Severity:not limiting Associated Symptoms:no snoring; no excessive daytime sleepiness; no arousals from sleep; no dyspnea; no decrease in exercise capacity; no fatigue; not coughing up sputum; no cough; no fever; no wheezing; no weight loss; no depressionRet[facility] Smoking CessationReported bypatient.Duration:40 years Timing:daily; intermittent thorughout the day Quality:10 cigarettes/day Context:during stress Associated Symptoms:no weight loss; no fever/chills/sweats; no fatigue; no hoarseness or change in voice; no throat pain; no pain or difficulty swallowing; no cough; no hemoptysis; no septum or phlegm; no wheezing; no shortness of breath; no chest pain; no heartburn/indigestion unrelated to eating; no heart palpitations or missed beats; no swelling in ankles/feet Treatments tried:none Contraindications to taking NRT:none Caution to taking NRTdiabetes Follow up for COPD and smoking. Shalom Aiken MD [address], [address], [facility] 04/09/2024 11:03:11 05/28/2024 text/html Diabetes F/URepo rted bypatient.Context:norm al range of home blood sugars (in the low 100s); seeing eye doctor regularly; checking feet regularly; not missing doses of medications; no side effects from medications;not taking aspirin daily Associated Symptoms:no weight loss; no dizziness; no sweats; no headaches; no confusion; no increased thirst; no increased appetite; no increased urination; no blurred vision; no numbness of feet; no calluses on feet;weight gain ( lbs)Notes:HGA1c today is 7.3% .Meds: pioglitazone 30, metformin max dose.Pt. has diabetic eye exam today. NO change in vision reported. NO foot pain. Pt. does not see dehydrogenation converter helper.Hypertensio n F/UReported bypatient.Associated Symptoms:no dizziness; no lightheadedness; no chest pain; no shortness of breath; no palpitations; no edema; no calf pain with exertion Lifestyle:not exercising regularly Medications:taking medications as directed; no side effects from medicationNotes:stable hypertension on lisinopril 5 mg. Rachel Lee PA-C [address], [address], [facility] 05/28/2024 13:55:09 08/13/2024 text/html Here for JENNIFER morrison Reviewed chronic medications and medical problems. Discussed screening guidelines as well as goals for fitness and weight management. Shalom Aiken MD [address], [address], [facility] 08/13/2024 10:36:10
--- OUTSIDE RECORDS SUMMARY | 2024-08-14 08:29 | XMS_ITS | Clinical Summary ---
Author Organization [facility] Address [address] [place] [address] Care Team Providers Care Alarm Investigator Name Role Phone Santy Lizarraga MD Primary Care Provider [phone] Social History Tobacco Use Types Packs/Day Years Used Date Smoking Tobacco: Never Assessed Sex and Gender Information Value Date Recorded Sex Assigned at Not on file Gender Identity Not on file Sexual Orientation Not on file Plan of Treatment Health Maintenance Due Date Last Done Comments Hepatitis C Screening 1960 COVID-19 Vaccine (#1) 1960 Depression Screening 1972 Preventative Health Evaluation 1978 Colon Cancer Screening (Colonoscopy) 2005 Shingrix-Zoster Vaccine (1 of 2) 2010 Influenza Vaccine (#1) 2023 , 02/19/2019, 12/10/2017, Additional history exists Pneumococcal Vaccine (2 of 2 - PCV) 2025 04/30/2007 DTap / Tdap / Td (3 - Td or Tdap) 06/07/2028 06/07/2018, 02/11/2008 RSV Adult > 60+ Yrs or (1 - 1-dose 75+ series) 2035 Pneumococcal Vaccine Aged Out 04/30/2007 No long er eligible based on patient's age to complete this topic Hepatitis B Vaccines Aged Out No long er eligible based on patient's age to complete this topic RSV Ped < 20 months Aged Out No longe r eligible based on patient's age to complete this topic Care Teams Alarm Investigator Relationship Specialty Start Date End Date Santy Lizarraga MD [address] [address] PCP - General Internal Medicine 07/14/20
--- OUTSIDE RECORDS SUMMARY | 2024-08-14 08:29 | XMS_ITS | Continuity of Care Document ---
Author Organization [facility] Address [address] [place] [address] [facility] Name Relationship Address Phone RAFITA PULIDO mother Unknown Unavailabl e LISANDRA CINTRON Personal Relationship Unknown U navailable ABDULAZIZ, LISANDRA Personal Relationship Unknown U navailable ABDULAZIZ, GAYE spouse Unknown Unavailable Care Team Providers Care Investigator Claims Name Role Phone Marilyn Gale MD Primary Care Physician [phone] Encounter [facility] NBR [id number] Date(s): 07/14/24 - 08/13/24 [facility] [address] [place] [address]- Attending Physician: Noé Borden Admitting Physician: Noé Borden Referring Physician: Noé Borden Encounter Type: Triage Allergies, Adverse Reactions, Alerts Substance Criticality Severity Reaction Reaction Severity Status Peanuts throat swells up Act jeremías Medications Albuterol (Eqv-ProAir HFA) 90 mcg/inh inhalation aerosol 2 puffs, Inhalation, Every 6 hours, 0 Refills, Maintenance, 10/23/23 1:26:00 PM EDT, Partial fill upon patient request if the prescription is for a schedule II opioid drug. Start Date: 10/23/23 Status: Ordered Repeat number: 1 Anoro Ellipta 62.5 mcg-25 mcg/inh inhalation powder 1 puffs, Inhalation, Daily, 0 Refills, Maintenance, 10/23/23 1:26:00 PM EDT, Partial fill upon patient request if the prescription is for a schedule II opioid drug. Start Date: 10/23/23 Status: Ordered Repeat number: 1 ARIPiprazole 5 mg oral tablet 5 mg, 1, tablet, By Mouth, Daily, Refills 0, Maintenance, 10/23/23 1:24:00 PM EDT, Partial fill uponpatient request if the prescription is for a schedule II opioid drug. Start Date: 10/23/23 Status: Ordered Repeat number: 1 atorvastatin 40 mg oral tablet 1 tablet = 40 mg, By Mouth, Daily in AM, # 30 tablet, 0 Refills, Maintenance, 10/05/20 2:16:00 PM EDT, Tablet, Partial fill upon patient request if the prescription is for a schedule II opioid drug. Start Date: 10/05/20 Status: Ordered Quantity: 30.0 Unit: tablet Repeat number: 1 Clonidine = 2 mg, By Mouth, Daily at bedtime, 0 Refills, Maintenance, 10/05/20 2:18:00 PM EDT, Partial fill upon patient request if the prescription is for a schedule II opioid drug. Start Date: 10/05/20 Status: Ordered Repeat number: 1 Euthyrox = 150 mcg, By Mouth, Daily in AM, 0 Refills, Maintenance, 10/05/20 2:19:00 PM EDT, Partial fill upon patient request if the prescription is for a schedule II opioid drug. Start Date: 10/05/20 Status: Ordered Repeat number: 1 Fluoxetine = 40 mg, By Mouth, Daily in AM, 0 Refills, Maintenance, 10/05/20 2:14:00 PM EDT, Partial fill upon patient request if the prescription is for a schedule II opioid drug. Start Date: 10/05/20 Status: Ordered Repeat number: 1 Gabapentin = 300 mg, By Mouth, 4 times a day, 0 Refills, Maintenance, 10/05/20 2:19:00 PM EDT, Partial fill uponpatient request if the prescription is for a schedule II opioid drug. Start Date: 10/05/20 Status: Ordered Repeat number: 1 GlipiZIDE = 5 mg, By Mouth, Daily in AM, 0 Refills, Maintenance, 10/05/20 2:14:00 PM EDT, Partial fill upon patient request if the prescription is for a schedule II opioid drug. Start Date: 10/05/20 Status: Ordered Repeat number: 1 Golytely - oral powder for reconstitution 240 mL, By Mouth, Every 10 minutes, # 1 each, 0 Refills, Maintenance, 07/14/24 1:28:00 PM EDT, REC Powder, [facility] [id number], Partial fill upon patient request if the prescription is for a schedule II opioid drug., 240 mL By Mouth Every 10 minutes, 175.26, cm, 07/14/24 12:55:00 EDT, Height Start Date: 07/14/24 Status: Ordered Quantity: 1.0 Unit: each Repeat number: 1 Haloperidol = 1 mg, By Mouth, Daily in AM, 0 Refills, Maintenance, 10/05/20 2:15:00 PM EDT, Partial fill upon patient request if the prescription is for a schedule II opioid drug. Start Date: 10/05/20 Status: Ordered Repeat number: 1 Haloperidol = 0.5 mg, By Mouth, Daily at bedtime, 0 Refills, Maintenance, 10/05/20 2:18:00 PM EDT, Partial fill upon patient request if the prescription is for a schedule II opioid drug. Start Date: 10/05/20 Status: Ordered Repeat number: 1 Lamotrigine 150 mg, By Mouth, Daily in AM, Refills 0, Maintenance, 10/05/20 2:17:00 PM EDT, Partial fill upon patient request if the prescription is for a schedule II opioid drug. Start Date: 10/05/20 Status: Ordered Repeat number: 1 lamotrigine 150 mg oral tablet 1 tablet = 150 mg, By Mouth, 2 times a day, 0 Refills, Maintenance, 10/23/23 1:25:00 PM EDT, Partialfill upon patient request if the prescription is for a schedule II opioid drug. Start Date: 10/23/23 Status: Ordered Repeat number: 1 Lisinopril = 2.5 mg, By Mouth, Daily in AM, 0 Refills, Maintenance, 10/05/20 2:17:00 PM EDT, Partial fill upon patient request if the prescription is for a schedule II opioid drug. Start Date: 10/05/20 Status: Ordered Repeat number: 1 Magnesium Citrate = 400 mg, By Mouth, Daily in AM, 0 Refills, Maintenance, 10/05/20 2:16:00 PM EDT, Partial fill upon patient request if the prescription is for a schedule II opioid drug. Start Date: 10/05/20 Status: Ordered Repeat number: 1 memantine 5 mg oral tablet 1 tablet = 5 mg, By Mouth, 2 times a day, 0 Refills, Maintenance, 10/23/23 1:26:00 PM EDT, Partial fill upon patient request if the prescription is for a schedule II opioid drug. Start Date: 10/23/23 Status: Ordered Repeat number: 1 metFORMIN 500 mg oral tablet 1 tablet = 500 mg, By Mouth, 2 times a day, 0 Refills, Maintenance, 10/23/23 1:25:00 PM EDT, Partialfill upon patient request if the prescription is for a schedule II opioid drug. Start Date: 10/23/23 Status: Ordered Repeat number: 1 Nortriptyline = 50 mg, By Mouth, Daily at bedtime, 2 caps, 0 Refills, Maintenance, 10/05/20 2:14:00 PM EDT, Partialfill upon patient request if the prescription is for a schedule II opioid drug. Start Date: 10/05/20 Status: Ordered Repeat number: 1 pioglitazone 30 mg oral tablet 1 tablet = 30 mg, By Mouth, Daily, 0 Refills, Maintenance, 10/23/23 1:24:00 PM EDT, Partial fill upon patient request if the prescription is for a schedule II opioid drug. Start Date: 10/23/23 Status: Ordered Repeat number: 1 Symbicort 80mcg/4.5mcg Inhaler 2, puffs, Inhalation, 2 times a day, Refills 0, Maintenance, 10/23/23 1:26:00 PM EDT Start Date: 10/23/23 Status: Ordered Repeat number: 1 topiramate 50 mg oral capsule, extended release 1 capsule = 50 mg, By Mouth, Daily, 0 Refills, Maintenance, 10/23/23 1:25:00 PM EDT, Partial fill upon patient request if the prescription is for a schedule II opioid drug. Start Date: 10/23/23 Status: Ordered Repeat number: 1 Vitamin B2 100 mg oral tablet 2 tabs, By Mouth, 2 times a day, # 30 tablet, 0 Refills, Maintenance, 10/05/20 2:20:00 PM EDT, Tablet, Partial fill upon patient request if the prescription is for a schedule II opioid drug. Start Date: 10/05/20 Status: Ordered Quantity: 30.0 Unit: tablet Repeat number: 1 Problem List Condition Confirmation Course Effective Dates Status Health St [facility] Informant Obese class I Confirmed Active Social History Social History Type Response Smoking Status 10 or more cigarette s (1/2 pack or more)/day in last 30 days; Other: OVER 0.5 PPD X 40 YEARS; entered on: 10/23/23 Sex Sex Representation Male (finding) Patient Care team information Care Team Personnel Name: Marilyn Gale MD Position: Reference Physician Member Role: PCP Address: [address] [place] [address] Telecom: Care Team Related Persons Name: RAFITA PULIDO Name: GAYE CINTRON Insurance Providers Guarantor name: LISANDRA CINTRON Health Plan Information #: 1 Payer: [employer] MEDICARE ADV PPO Member Number: NA Policy Number: NA Group Number: NA
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
== END 2024-08-14 09:07 | disposition home or self-care (01) ==
LOC: HO.HSMS 08:17
PROVIDERS: Visit Provider Nurse Practitioner Family
DX: G43.109 Migraine with aura, not intractable, without status migrainosus (principal); G47.33 Obstructive sleep apnea (adult) (pediatric); G24.01 Drug induced subacute dyskinesia
CPT/HCPCS: 99214

== ENCOUNTER → 2024-08-14 08:16 | Outpatient (BNVA) | payer MEDICARE, SELFPAY | PROVIDERS: Visit Provider Nurse Practitioner Family | DX: G43.109 Migraine with aura, not intractable, without status migrainosus (principal); G47.33 Obstructive sleep apnea (adult) (pediatric); G24.01 Drug induced subacute dyskinesia; Z99.89 Dependence on other enabling machines and devices | CPT/HCPCS: 99212 ==

== ENCOUNTER 2025-02-06 09:21 | Outpatient (AMB) | payer MEDICARE, SELFPAY ==
[2025-02-06 09:40] VITALS: BP 130/80; PULSE 78; O2SAT 95; BMI 33.5
--- NOTE | 2025-02-06 09:40 | A.OFFVIS_ITS ---
Vital Signs 02/06/25 09:40 Height 5 ft 9 in Weight 227 lb BMI 33.5 BP 130/80 Blood Pressure Location Rt brachial Position Sitting Pulse 78 Pulse Source Pulse Oximeter Pulse Oximetry (%) 95 Oxygen Delivery Method Room Air Intake Visit Reasons: 6 mnts f/u appt-Conf Intake Note: Patient presents month follow up for migraines. 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 Accompanied by: Self / Same As Patient Allergies Peanut Butter Allergy (Intermediate, Verified 02/06/25 09:45) throat swells up Medication List - Last Reconciled 02/06/25 by ALLY Harding albuterol sulfate 90 mcg/actuation inhalation aripiprazole 5 mg orally BID PRN; atorvastatin 40 mg PO BEDTIME blood sugar diagnostic (LDK Solar Ultra Test strips) As directed bromfenac 0.09% 0 drps ophthalmic (eye) clonidine HCl 0.1 mg PO BID PRN diphenhydramine HCl (Benadryl) 25 - 50 mg (1 - 2 x 25 mg) PO Q6-8H PRN 30 days eletriptan take 1 tab at onset of headache; if no relief, may repeat 1 tab after at least 2 hrs; max = 2 tabs/24 hrs PO 30 days fluoxetine 40 mg PO DAILY gabapentin 300 mg PO TID glipizide ER 10 mg PO DAILY haloperidol 2 mg PO BEDTIME lamotrigine 150 mg PO DAILY lancets ([employer] Delica Plus Lancet) As directed levothyroxine (Euthyrox) 150 mcg PO DAILY PRN lisinopril 2.5 mg PO DAILY lisinopril 5 mg PO DAILY magnesium oxide 400 mg PO BEDTIME 90 days memantine 10 mg PO BID 30 days metformin 1,000 mg PO BID nortriptyline 50 mg PO BID pioglitazone 30 mg PO DAILY riboflavin (vitamin B2) 200 mg (2 x 100 mg) PO BID 90 days sumatriptan succinate 50 - 100 mg orally at onset of headache, may repeat in 2 hrs PRN; max 2 tabs per day or 4 tabs/week (may take with Ibuprofen) 30 days topiramate 100 mg PO BID 90 days zolmitriptan 5 mg PO Q2H PRN 30 days HPI Comments Details: 64-yr-old male presents for f/u visit for migraine and PAKO on CPAP. Pt denies any significant interval medical history changes. Patient reports his migraine attacks are stable, now tend to come and go over 2- 3 days He is compliant with his current preventative migraine medication regimen. His zomig is usually effective, but he has to pay-out-of pocket for this, as it is not on his insurance formulary. He did not receive the rizatriptan, evidently the order never transmitted. He is still sleeping well w/ CPAP. He has not noticed any involuntary oral movements. [facility] Surgical History [place] teeth extracted H/O shoulder surgery Family History Mother Diabetes Asthma Father No problems noted. Brother Diabetes Social History Alcohol intake: never Patient Tobacco Use Status: Current everyday Tobacco user Physical Exam Vital Signs: Last Vital Signs Pulse 78 02/06/25 09:40 BP 130/80 02/06/25 09:40 Pulse Ox 95 02/06/25 09:40 Oxygen Delivery Method Room Air 02/06/25 09:40 BMI result Body Mass Index 33.5 Const General: cooperative and no acute distress Orientation/consciousness: patient oriented x3 Resp Effort & Inspection: normal respiratory effort and able to speak in complete sentences Neuro General: patient oriented x3 Cranial nerves: Yes CN's II-XII intact bilaterally Cognition (Neuro): normal cognition Psych Appearance: grossly normal Mental Status: mental status grossly normal Speech and movement: Normal speech and movement present Affect: normal affect Attitude: cooperative Assessment & Plan Assessment & Plan (1) Migraine with aura: Code(s): G43.109 - Migraine with aura, not intractable, without status migrainosus Category: Medical Qualifiers: Status migrainosus presence: without status migrainosus Intractability: not intractable Qualified Code(s): G43.109 - Migraine with aura, not intractable, without status migrainosus (2) Obstructive sleep apnea: Comment: AHI 11 REM AHI 24/hr Oxygen tasha 75%. Code(s): G47.33 - Obstructive sleep apnea (adult) (pediatric) Category: Medical (3) Tardive dyskinesia: Comment: Jaw, tongue movements Code(s): G24.01 - Drug induced subacute dyskinesia Category: Medical Plan For migraine prevention: Continue Memantine 10mg bid, as this has been helpful in reducing migraine burden. Continue Topiramate 100mg bid. Continue Nortriptyline- prescribed for mood Continue Lamotrigine- prescribed for mood. Continue lisinopril, clonidine- for BP and sleep- BP is typically normotensive. Continue Mag and B2. Previous migraine tx trials: Aimovig 140mg sc- effective but not affordable. Future consideration: Trialing Co [id number] is not interested in trying this today. Botox- not currently interested. Resuming Aimovig- if it begins affordable. ? For acute migraine tx: Again, trial Rizatriptan 10mg tab, 1/2 - 1 tab (5-10mg) at onset of headache, may repeat in 2 hours. Max of 2 tabs (200mg) per 24 hours. May adjunct with OTC Tylenol 650mg every 4 hours, Ibuprofen (liquigel) 600mg every 6 hours, or Naproxen (liquigel) 440mg every 12 hrs as needed. Potential adverse effects of triptans, include but are not limited to nausea, fatigue, chest tightness/tingling (usually passes within a few minutes), medication overuse headaches. If rizatriptan ineffective, resume Zolmitriptan 5mg at onset, MR in 2 hrs (max 10mg/day) may take with Aleve liquid gels. Continue prn Benadryl 25-50mg for rescue/sleep. ? For PAKO: Continue CPAP 14 cmH2O, as pt is experiencing good clinical benefit from use. ? Monitor TD s/s clinically. f/u in 6 months or sooner prn. Medications: New rizatriptan max 3 tabs per day or 6 tabs per week 5 - 10 mg (0.5 - 1 x 10 mg) PO Q2H PRN 12 tabs 6RF migraine headache 21 days Refilled riboflavin (vitamin B2) 200 mg (2 x 100 mg) PO BID 360 tabs 3RF 90 days memantine 10 mg PO BID 60 tabs 6RF 30 days zolmitriptan Max 2 tabs per day or 4 tabs per week 5 mg PO Q2H PRN 12 tabs 6RF migraine headache 30 days magnesium oxide 400 mg PO BEDTIME 90 tabs 6RF 90 days Coding Level of Care Code Est Pt Level 4 (43792) Diagnoses Migraine with aura and without status migrainosus, not intractable G43.109 Status migrainosus presence: without status migrainosus Intractability: not intractable Obstructive sleep apnea G47.33 Tardive dyskinesia G24.01
--- OUTSIDE RECORDS SUMMARY | 2025-02-06 10:37 | XMS_ITS | Data Portability ---
Author Organization [facility], Main Office Address [address] [facility] [address] [place] [address] Care Team Providers Care Mill Hand Plate Mill Name Role Phone ASHELY CRUZ Hide Measuring Machine Operator [phone] ISIAH BRIAN Vascular Surgeon LION KIRK Oral Surgeon/Dentist [phone] SHALOM AIKEN Primary Care Provider ANJALI WISE Psychiatrist LES RUSH Eeler Assessment Encounter Date Assessment Date Assessment LastModified by Organization Details LastModified Time 11/26/2024 11/26/2024 Total time spent reviewing labs, consulting notes and coordinating care, 45 minutes. Not available 11/26/2024 10:06:10 Plan of Treatment Reminders Order Date Submit Date Provider Last Modified By Organization Details Last Modified Time Details Appointments FOLLOW UP 2024 10:30A M Shalom Aiken MD Not available Not available Not available Lab hemogl obin A1C, finger stick 2024 025 In-Office Order, Internal Use Only DO Not Attach Compendium DO Not Attach Compendium, Do Not Delete/merge, [id number] 11/26/2024 09:25:27 BMP, serum or plasma 2024 025 [facility]ITA [facility] (Centralized Electronic Ordering - All Locations), Patient Can Go To The Location Of Their Choice, [id number] 01/27/2025 06:07:25 vitami n B12, serum 2024 025 [facility], [address], [place], [address], 08/15/2024 08:12:09 urinal ysis comple te, reflex cultur e 2024 025 TITA [facility] (Centralized Electronic Ordering - All Locations), Patient Can Go To The Location Of Their Choice, 08/15/2024 08:12:06 PSA, serum or plasma 2024 025 TITA [facility] (Centralized Electronic Ordering - All Locations), Patient Can Go To The Location Of Their Choice, 08/15/2024 08:12:07 magnes ium, serum or plasma 2024 025 [facility]ITA [facility] (Centralized Electronic Ordering - All Locations), Patient Can Go To The Location Of Their Choice, 08/15/2024 08:12:10 lipid panel, serum 2024 025 TITA [facility] (Centralized Electronic Ordering - All Locations), Patient Can Go To The Location Of Their Choice, 08/15/2024 08:12:06 HbA1c (hemog lobin A1c), blood 2024 025 [facility]ITA [facility] (Centralized Electronic Ordering - All Locations), Patient Can Go To The Location Of Their Choice, 08/15/2024 08:12:08 TSH + free T4, serum 2024 025 TITA [facility] (Centralized Electronic Ordering - All Locations), Patient Can Go To The Location Of Their Choice, 08/15/2024 08:12:04 hemogl obin A1C, finger stick 2024 025 TITA In-Office Order, Internal Use Only DO Not Attach Compendium DO Not Attach Compendium, Do Not Delete/merge, [id number] 05/28/2024 13:25:03 CMP, serum or plasma 2024 025 TITA [facility] (Centralized Electronic Ordering - All Locations), Patient Can Go To The Location Of Their Choice, 07/01/2024 06:07:47 microa lbumin /creat inine, mass ratio, urine 2024 025 TITA [facility] (Centralized Electronic Ordering - All Locations), Patient Can Go To The Location Of Their Choice, [id number] 07/05/2024 12:06:29 Referral podiat rist referr al - Diabet ic periph eral neurop athy. recomm end regula r foot/n ail care. 2024 025 [email or web address] Mauroelva FrancisLauren, [address] [facility], [address], [place], [address], 11/26/2024 09:39:56 diabet ic ophtha lmolog y referr al 2024 025 [email or web address] Alvarez MD, [address] [facility], [address], [place], [address], 11/25/2024 11:48:12 Procedures None record ed. Surgeries None record ed. Imaging LDCT, chest, for lung cancer screen ing - *LDCT Lung Cancer Screen ing Progra m Annual Order* The patistephen t does not have lung cancer or signs of lung cancer at this time. Praneeth t has not had a chest CT in the last 12 months . *SHARE D DECISI ON MAKING * I have discus sed the benefi ts and risks of lung cancer screen ing in compli ance with [facility] shared decisi on making guidel fernando includ ing early detect ion, radiat ion exposu re, false negati ve rates, false positi ve rates, over-d iagnos is, incide ntal findin gs, impact of comorb iditie s and the abilit y or willin gness to underg o diagno sis and treatm ent if someth ing concer francisco is found. I have review ed with the patien t the import ance of abstin ence if a former smoker , and import ance of smokin g cessat ion if a curren t smoker . I have furnis hed the patistephen t with inform ation and resour tammy availa ble to quit smokin g if approp riate. 2024 Danyel [email or web address] [facility], [address] [place], [address], 12/31/2024 11:30:18 Medication Orders Mounja ro 2.5 mg/0.5 mL subcut aneous pen inject or 2024 025 [facility], [address] [place] [address], [address], 11/26/2024 10:01:56 nicoti ne 14 mg/24 hr daily transd ermal patch 2024 [facility] [address] [place] [address], [id number], 08/13/2024 10:03:48 nicoti ne (polac rilex) 2 mg gum 2024 [facility] [address] [place] [address], [address], 08/13/2024 10:03:27 Patient TargetsNo targets recorded. Patient Instructions Encounter Date Encounter Id Patient Instructions Last Modified By Organization Details Last Modified Time 04/09/2024 [id number] deciding about using medicines to quit smoking [email or web address] Not available 04/09/2024 10:53:25 Quitting Tobacco : Care Instructions ckokar Not available 04/09/2024 10:53:25 chronic obstructive pulmonary disease (COPD): care instructions ckokar Not available 04/09/2024 10:53:25 learning about copd and how to prevent lung infections ckokar Not available 04/09/2024 10:53:25 05/28/2024 [id number] high blood pressure: care instructions Not available 05/28/2024 13:29:09 learning about high blood pressure Not available 05/28/2024 13:29:09 type 2 diabetes: care instructions Not available 05/28/2024 13:29:09 08/13/2024 [id number] When You Want to Lose Weight: Care [...] 08/13/2024 10:30:12 preventing falls : care instructions [email or web address] Not available 08/13/2024 10:30:12 well visit, over 65: care instructions ckokar Not available 08/13/2024 10:30:12 type 2 diabetes: care instructions ckomelba Not available 08/13/2024 10:30:12 hypothyroidism: care instructions ckomelba Not available 08/13/2024 10:30:12 iron deficiency anemia: care instructions ckomelba Not available 08/13/2024 10:30:11 09/05/2024 [id number] type 2 diabetes: care instructions Not available 09/05/2024 15:50:56 high blood pressure: care instructions Not available 09/05/2024 15:50:56 learning about high blood pressure Not available 09/05/2024 15:50:56 11/26/2024 [id number] sleep apnea: car e instructions Not available 11/26/2024 09:25:28 high blood pressure: care instructions Not available 11/26/2024 09:25:27 learning about high blood pressure Not available 11/26/2024 09:25:27 type 2 diabetes: care instructions Not available 11/26/2024 09:25:27 body mass index: care instructions Not available 11/26/2024 10:03:26 learning about healthy weight Not available 11/26/2024 10:03:26 Reason for Referral Diabetic Ophthalmology Refer ral for Type 2 diabetes mellitus without complication Referring Physician: Rachel Lee, Internal Medicine, Encounter Date: 05/28/2024 [employer] Porter Referral for Diab etic peripheral neuropathy Diabetic peripheral neuropathy. recommend regular foot/nail care. Referring Physician: Rachel Lee Internal Medicine, Encounter Date: 11/26/2024 Results Created Date Observation Date Name Description Value Unit Range Abnormal Flag Note LastModifiedBy Organization Detail LastModifiedTime 05/28/1905/28/2024 hemog lobin A1C, daniel painter k A1C 7.3 % 4-6 abnormal Not Available In-Office Order Internal Use Only DO Not Attach Compendium DO Not Attach Compendium, Do Not Delete/merge, [id number] 05/28/2024 13:06:22 07/01/19 25 06/30/2024 CMP14 +EGFR glucose 174 mg/dL 70-99 above high normal Not Available [facility] ([facility][1] Lab) [address] [facility], [place], [address], 07/01/2024 06:07:47 07/01/19 25 06/30/2024 CMP14 +EGFR BUN 16 mg/dL 8-27 normal Not Available [facility] ([facility][1] [facility]) [address] [place], [address], 07/01/2024 06:07:47 07/01/19 25 06/30/2024 CMP14 +EGFR creatinine 1.11 mg/dL 0.76-1 .27 normal Not Available [facility] ([facility]) [address] [facility], [place], [address], 07/01/2024 06:07:47 07/01/19 25 06/30/2024 CMP14 +EGFR eGFR 74 mL/mi n/1.7 3 >59 normal Not Available [facility] ([facility]) [address] [place], [address], 07/01/2024 06:07:47 07/01/19 25 06/30/2024 CMP14 +EGFR BUN/creatini ne ratio 14 10-24 normal Not Available [facility] ([facility]) [address] [place], [address], 07/01/2024 06:07:47 07/01/19 25 06/30/2024 CMP14 +EGFR sodium 138 mmol/ L 134-14 4 normal Not Available [facility] ([facility]) [address] [facility] [place], [address], 07/01/2024 06:07:47 07/01/19 25 06/30/2024 CMP14 +EGFR potassium 4.1 mmol/ L 3.5-5. 2 normal Not Available [facility] ([facility]) [address] [facility] [place], [address], 07/01/2024 06:07:47 07/01/19 25 06/30/2024 CMP14 +EGFR chloride 103 mmol/ L 96-106 normal Not Available [facility] ([facility]) [address] [facility] [place], [address], 07/01/2024 06:07:47 07/01/19 25 06/30/2024 CMP14 +EGFR carbon dioxide, total 20 mmol/ L 20-29 normal Not Available [facility] ([facility]) [address] [facility] [place], [address], 07/01/2024 06:07:47 07/01/19 25 06/30/2024 CMP14 +EGFR calcium 9.5 mg/dL 8.6-10 .2 normal Not Available [facility] ([facility]) [address] [facility] [place], [address], 07/01/2024 06:07:47 07/01/19 25 06/30/2024 CMP14 +EGFR protein, total 6.3 g/dL 6.0-8. 5 normal Not Available [facility] ([facility]) [address] [facility] [place], [address], 07/01/2024 06:07:47 07/01/19 25 06/30/2024 CMP14 +EGFR albumin 4.2 g/dL 3.9-4. 9 normal Not Available [facility] ([facility]) [address] [facility] [place], [address], 07/01/2024 06:07:47 07/01/19 25 06/30/2024 CMP14 +EGFR globulin, total 2.1 g/dL 1.5-4. 5 Not Available [facility] ([facility]) [address] [facility] [place], [address], 07/01/2024 06:07:47 07/01/19 25 06/30/2024 CMP14 +EGFR bilirubin, total <0.2 mg/dL 0.0-1. 2 Not Available [facility] ([facility]) [address] [facility] [place], [address], 07/01/2024 06:07:47 07/01/19 25 06/30/2024 CMP14 +EGFR alkaline phosphatase 133 IU/L 44-121 above high normal Not Available [facility] ([facility]) [address] [facility] [place], [address], 07/01/2024 06:07:47 07/01/19 25 06/30/2024 CMP14 +EGFR AST (SGOT) 31 IU/L 0-40 normal Not Available [facility] ([facility]) [address] [facility] [place], [address], 07/01/2024 06:07:47 07/01/19 25 06/30/2024 CMP14 +EGFR ALT (SGPT) 41 IU/L 0-44 normal Not Available [facility] ([facility]) [address] [facility] [place], [address], 07/01/2024 06:07:47 07/04/19 25 07/05/2024 ALBUM IN/CR EAT RATIO , RANDO M UR creatinine, urine 149.5 mg/dL not estab. normal Not Available [facility] ([facility]) [address] [facility] [place], [address], 07/05/2024 12:06:29 07/04/19 25 07/05/2024 ALBUM IN/CR EAT RATIO , RANDO M UR albumin, urine 4.5 ug/mL not estab. Not Available [facility] ([facility]) [address] [facility] [place], [address], 07/05/2024 12:06:29 07/04/1907/05/2024 ALBUM IN/CR EAT RATIO , RANDO M UR alb/creat ratio 3 mg/g_ creat 0-29 Neela l: 0 - 29 Moder ately incre ased: 30 - 300 Sever sujit incre ased: >300 Not Available [facility] ([facility]) [address] [facility] [place], [address], 07/05/2024 12:06:29 08/15/1908/15/2024 TSH+F REE T4 TSH 1.560 uIU/m L 0.450- 4.500 normal Not Available [facility] ([facility]) [address] [facility] [place], [address], 08/15/2024 08:12:04 08/15/1908/15/2024 TSH+F REE T4 T4,free(dire ct) 1.13 NG/dL 0.82-1 .77 normal Not Available [facility] ([facility]) [address] [facility] [place], [address], 08/15/2024 08:12:04 08/15/1908/14/2024 UA/M W/RFL X CULTU RE ROUTI NE specific gravity 1.012 1.005- 1.030 normal Not Available [facility] ([facility]) [address] [facility] [place], [address], 08/15/2024 08:12:06 08/15/1908/14/2024 UA/M W/RFL X CULTU RE ROUTI NE pH 6.0 5.0-7. 5 normal Not Available [facility] ([facility]) [address] [facility] [place], [address], 08/15/2024 08:12:06 08/15/1924 0808/14/2024 UA/M W/RFL X CULTU RE, ROUTI NE urine-color Yellow yellow Not Available [facility] ([facility][1[facility]) [address] [place], [address], 08/15/2024 08:12:06 08/15/19 25 08/14/2024 UA/M W/RFL X CULTU RE, ROUTI NE appearance Clear clear Not Available [facility] ([facility]) [address] [place], [address], 08/15/2024 08:12:06 08/15/19 25 08/14/2024 UA/M W/RFL X CULTU RE, ROUTI NE WBC esterase Negati ve negati ve Not Available [facility] ([facility]) [address] [place], [address], 08/15/2024 08:12:06 08/15/19 25 08/14/2024 UA/M W/RFL X CULTU RE, ROUTI NE protein Negati ve negati ve/tra ce Not Available [facility] ([facility]) [address] [place], [address], 08/15/2024 08:12:06 08/15/19 25 08/14/2024 UA/M W/RFL X CULTU RE, ROUTI NE glucose Negati ve negati ve Not Available [facility] ([facility]) [address] [place], [address], 08/15/2024 08:12:06 08/15/19 25 08/14/2024 UA/M W/RFL X CULTU RE, ROUTI NE ketones Negati ve negati ve Not Available [facility] ([facility]) [address] [place], [address], 08/15/2024 08:12:06 08/15/19 25 08/14/2024 UA/M W/RFL X CULTU RE, ROUTI NE occult blood Negati ve negati ve Not Available [facility] ([facility]) [address] [place], [address], 08/15/2024 08:12:06 08/15/19 25 08/14/2024 UA/M W/RFL X CULTU RE, ROUTI NE bilirubin Negati ve negati ve Not Available [facility] ([facility]) [address] [facility], [place], [address], 08/15/2024 08:12:06 08/15/19 25 08/14/2024 UA/M W/RFL X CULTU RE, ROUTI NE urobilinogen ,semi-qn 0.2 mg/dL 0.2-1. 0 normal Not Available [facility] ([facility]) [address] [facility], [place], [address], 08/15/2024 08:12:06 08/15/19 25 08/14/2024 UA/M W/RFL X CULTU RE, ROUTI NE nitrite, urine Negati ve negati ve Not Available [facility] ([facility]) [address] [facility], [place], [address], 08/15/2024 08:12:06 08/15/19 25 08/14/2024 UA/M W/RFL X CULTU RE, ROUTI NE microscopic examination Commen t Micro scopi c follo ws if indic ated. Not Available [facility] ([facility]) [address] [place], [address], 08/15/2024 08:12:06 08/15/19 25 08/14/2024 UA/M W/RFL X CULTU RE, ROUTI NE microscopic examination See below: Micro scopi c was indic ated and was perfo rmed. Not Available [facility] ([facility]) [address] [facility], [place], [address], 08/15/2024 08:12:06 08/15/19 25 08/15/2024 UA/M W/RFL X CULTU RE, ROUTI NE WBC None seen /hpf 0 - 5 Not Available [facility] ([facility]) [address] [facility], [place], [address], 08/15/2024 08:12:06 08/15/19 25 08/15/2024 UA/M W/RFL X CULTU RE, ROUTI NE RBC None seen /hpf 0 - 2 Not Available [facility] ([facility]) [address] [facility], [place], [address], 08/15/2024 08:12:06 08/15/19 25 08/15/2024 UA/M W/RFL X CULTU RE, ROUTI NE epithelial cells (non renal) None seen /hpf 0 - 10 Not Available [facility] ([facility]) [address] [facility], [place], [address], 08/15/2024 08:12:06 08/15/19 25 08/15/2024 UA/M W/RFL X CULTU RE, ROUTI NE epithelial cells (renal) STOCK DIGGER Not Available [facility] ([facility]) [address] [facility], [place], [address], 08/15/2024 08:12:06 08/15/19 25 08/15/2024 UA/M W/RFL X CULTU RE, ROUTI NE casts None seen /lpf none seen Not Available [facility] ([facility]) [address] [facility], [place], [address], 08/15/2024 08:12:06 08/15/19 25 08/15/2024 UA/M W/RFL X CULTU RE, ROUTI NE cast type STOCK DIGGER Not Available [facility] ([facility]) [address] [facility], [place], [address], 08/15/2024 08:12:06 08/15/19 25 08/15/2024 UA/M W/RFL X CULTU RE, ROUTI NE crystals STOCK DIGGER Not Available [facility] ([facility]) [address], [place], [address], 08/15/2024 08:12:06 08/15/19 25 08/15/2024 UA/M W/RFL X CULTU RE, ROUTI NE crystal type STOCK DIGGER Not Available [facility] ([facility]) [address] [facility], [place], [address], 08/15/2024 08:12:06 08/15/19 25 08/15/2024 UA/M W/RFL X CULTU RE, ROUTI NE mucus threads STOCK DIGGER Not Available [facility] ([facility]) [address] [facility], [place], [address], 08/15/2024 08:12:06 08/15/19 25 08/15/2024 UA/M W/RFL X CULTU RE, ROUTI NE bacteria None seen none seen/f ew Not Available [facility] ([facility]) [address] [facility], [place], [address], 08/15/2024 08:12:06 08/15/19 25 08/15/2024 UA/M W/RFL X CULTU RE, ROUTI NE yeast STOCK DIGGER Not Available [facility] ([facility]) [address] [facility], [place], [address], 08/15/2024 08:12:06 08/15/19 25 08/15/2024 UA/M W/RFL X CULTU RE, ROUTI NE trichomonas STOCK DIGGER Not Available [facility] ([facility]) [address] [facility], [place], [address], 08/15/2024 08:12:06 08/15/19 25 08/15/2024 UA/M W/RFL X CULTU RE, ROUTI NE comment STOCK DIGGER Not Available [facility] ([facility]) [address] [facility], [place], [address], 08/15/2024 08:12:06 08/15/19 25 08/15/2024 UA/M W/RFL X CULTU RE, ROUTI NE urinalysis reflex Commen t This speci men will not refle x to a Urine Cultu re. Not Available [facility] ([facility]) [address] [place], [address], 08/15/2024 08:12:06 08/15/19 25 08/15/2024 LIPID PANEL cholesterol, total 144 mg/dL 100-19 9 normal Not Available [facility] ([facility]) [address] [place], [address], 08/15/2024 08:12:06 08/15/19 25 08/15/2024 LIPID PANEL triglyceride s 93 mg/dL 0-149 normal Not Available [facility] ([facility]) [address] [place], [address], 08/15/2024 08:12:06 08/15/19 25 08/15/2024 LIPID PANEL HDL cholesterol 40 mg/dL >39 normal Not Available [facility] ([facility]) [address] [place], [address], 08/15/2024 08:12:06 08/15/19 25 08/15/2024 LIPID PANEL VLDL cholesterol jaime 18 mg/dL 5-40 Not Available [facility] ([facility]) [address] [place], [address], 08/15/2024 08:12:06 08/15/19 25 08/15/2024 LIPID PANEL LDL chol calc ([facility]) 86 mg/dL 0-99 Not Available [facility] ([facility]) [address] [place], [address], 08/15/2024 08:12:06 08/15/19 25 08/15/2024 LIPID PANEL LDL calc comment: STOCK DIGGER Not Available [facility] ([facility]) [address] [place], [address], 08/15/2024 08:12:06 08/15/1908/14/2024 PSA TOTAL (REFL EX TO FREE) reflex criteria Commen t The perce nt free PSA is perfo rmed on a refle x basis only when the total PSA is betwe en 4.0 and 10.0 ng/mL . Not Available [facility] ([facility]) [address] [facility], [place], [address], 08/15/2024 08:12:07 08/15/1908/15/2024 PSA TOTAL (REFL EX TO FREE) prostate specific Ag 0.3 NG/mL 0.0-4. 0 normal Karla ECLIA metho dolog y. Accor ding [...] kits canno t be used inter lawton eably . Resul ts canno t be inter prete d as absol nadiya evide nce of the prese nce or absen ce of samantha zambrano se. Not Available [facility] ([facility]) [address] [facility], [place], [address], 08/15/2024 08:12:07 08/15/1908/14/2024 HEMOG LOBIN A1C hemoglobin A1C 7.4 % 4.8-5. 6 above high normal Predi abete s: 5.7 - 6.4 Diabe juanita: >6.4 Glyce abiola contr ol for adult s with diabe juanita: <7.0 Not Available [facility] ([facility]) [address] [facility], [place], [address], 08/15/2024 08:12:08 08/15/1908/15/2024 VITAM IN B12 vitamin B12 579 pg/mL 232-12 45 normal Not Available [facility] ([facility]) [address] [facility], [place], [address], 08/15/2024 08:12:09 08/15/19 25 08/15/2024 MAGNE SIUM magnesium 2.1 mg/dL 1.6-2. 3 normal Not Available [facility] ([facility]) [address] [facility], [place], [address], 08/15/2024 08:12:10 11/27/19 25 11/26/2024 hemog lobin A1C, finge rstic k A1C 6.9 % 4-6 high Not Available In-Office Order Internal Use Only DO Not Attach Compendium DO Not Attach Compendium, Do Not Delete/merge, [id number] 11/26/2024 09:04:16 01/27/2001/27/2025 BASIC METAB OLIC PANEL (8) glucose 168 mg/dL 70-99 above high normal Not Available [facility] ([facility]) [address] [facility], [place], [address], 01/27/2025 06:07:25 01/27/20 25 01/27/2025 BASIC METAB OLIC PANEL (8) BUN 10 mg/dL 8-27 normal Not Available [facility] ([facility]) [address] [place], [address], 01/27/2025 06:07:25 01/27/2001/27/2025 BASIC METAB OLIC PANEL (8) creatinine 1.14 mg/dL 0.76-1 .27 normal Not Available [facility] ([facility]) [address] [place], [address], 01/27/2025 06:07:25 01/27/20 25 01/27/2025 BASIC METAB OLIC PANEL (8) eGFR 72 mL/mi n/1.7 3 >59 normal Not Available [facility] ([facility]) [address] [facility] [place], [address], 01/27/2025 06:07:25 01/27/2001/27/2025 BASIC METAB OLIC PANEL (8) BUN/creatini ne ratio 9 10-24 below low normal Not Available [facility] ([facility]) [address] [facility] [place], [address], 01/27/2025 06:07:25 01/27/2001/27/2025 BASIC METAB OLIC PANEL (8) sodium 140 mmol/ L 134-14 4 normal Not Available [facility] ([facility]) [address] [facility] [place], [address], 01/27/2025 06:07:25 01/27/2001/27/2025 BASIC METAB OLIC PANEL (8) potassium 4.0 mmol/ L 3.5-5. 2 normal Not Available [facility] ([facility][1] Lab) [address] [facility] [place], [address], 01/27/2025 06:07:25 01/27/2001/27/2025 BASIC METAB OLIC PANEL (8) chloride 103 mmol/ L 96-106 normal Not Available [facility] ([facility][1] [facility]) [address] [facility] [place], [address], 01/27/2025 06:07:25 01/27/2001/27/2025 BASIC METAB OLIC PANEL (8) carbon dioxide, total 21 mmol/ L 20-29 normal Not Available [facility] ([facility][1[facility]) [address] [facility] [place], [address], 01/27/2025 06:07:25 01/27/2001/27/2025 BASIC METAB OLIC PANEL (8) calcium 9.5 mg/dL 8.6-10 .2 normal Not Available [facility] ([facility][1[facility]) [address] [facility] [place], [address], 01/27/2025 06:07:25 Result Notes None recorded. Problems Name Problem SNOMED Code Status Onset Date Resolution Date Notes Provider Name and Address Organization Details Recorded Time Bipolar I disorder 363237798 Active MURTAZA Kan [address] [facility] [address], [place], [address] , [facility] 4 14:10:56 Chondrom alacia of patella 46819412 Completed 02/21/2022 Shalom Aiken MD [address] [facility] [address], [place], [address] , [facility] 2 11:56:26 Tobacco dependen ce syndrome 37717468 Active Santy Lizarraga MD [address] [address], [place], [address] , [facility] 6 21:03:24 Type 2 diabetes mellitus without complica tion 280072236 Completed 09/01/2020 [facility] 11:03:23 Diplopia 22240601 Completed 02/21/2022 Shalom Aiken MD [address] [address], [place], [address] , [facility] 2 11:56:20 Essentia l hyperten steve 59925332 Active Santy Lizarraga MD [address] [address], [place], [address] , [facility] 6 21:03:24 Hyperlip idemia 46011609 Active Santy Lizarraga MD [address] [address], [address] , [facility] 6 21:03:24 Hypersom emily 82354800 Completed 07/16/2023 Shalom Aiken MD [address] [address], [place], [address] , [facility] 4 14:12:17 Hypothyr oidism 46933791 Active Santy Lizarraga MD [address], [place], [address] , [facility] 6 21:03:24 Major depressi on single episode, in partial remissio n 33001774 Completed 07/15/2023 Shalom Aiken MD [address], [place], [address] , [facility] 4 15:49:26 Migraine 32708514 Active JESSICA Kan [address], [place], [address] , [facility] 4 14:10:56 Obesity 783614481 Completed 03/17/2017 Shalom Aiken MD [address], [place], [address] , [facility] 2 11:56:10 Impacted cerumen 72017307 Completed 02/21/2022 Shalom Aiken MD [address], [place], [address] , [facility] 2 11:56:32 Lipomato us tumor 010532546 Completed 03/17/2017 Santy Lizarraga MD [address], [place], [address] , [facility] 7 18:46:20 Anemia due to unknown mechanis m 02877016 Completed 02/06/2020 Rachel Lee PA-C [address], [place], [address] , [facility] 0 11:59:07 Iron deficien cy anemia 06974854 Completed 02/21/2022 Shalom Aiken MD [address], [place], [address] , [facility] 2 07:01:40 Upper respirat ory infectio n 22238352 Completed 09/10/2017 MICHALE Leung, [facility] 8 10:34:47 Hoarse 37229693 Completed 03/17/2017 Santy Lizarraga MD [address] [facility] [address], [place], [address] , [facility] 7 18:46:09 Serous otitis media 31845101 Completed 12/11/2016 MICHAEL Leung, [facility] 7 10:57:24 Acute sinusiti s 50062212 Completed 12/11/2016 MICHAEL Leung, [facility] 7 10:57:19 Chronic obstruct jeremías pulmonar y disease 44335082 Active MICHAEL Leung, [facility] 3 13:44:28 Active or passive immuniza tion Completed 200710/21/2013 RECORDED 02/11/20 08 8:42AM BY MICHAEL MCDONALD, SANTIAGOATI ON/ADDEN DUM Not Available [facility] 4 14:56:34 Administ ration of bacteria l and viral vaccine Completed 200710/21/2013 RECORDED 02/11/20 08 9:16AM BY MICHAEL MCDONALD, OFFICE VISIT Not Available [facility] 4 14:56:34 Active or passive immuniza tion Completed 200711/10/2013 RECORDED 02/11/20 08 8:42AM BY SANTIAGO PEREZATI ON/ADDEN DUM Not Available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 [id number] autoEComm erce [address] [place] [address] 02/07/2012 00:00:00 [id number] autoEComm erce [address] [facility] [address] [place] [address] 05/16/2012 00:00:00 [id number] autoEComm erce [address] [facility] [address] [place] [address] 09/20/2012 00:00:00 [id number] autoEComm erce [address] [facility] [address] [place] [address] 12/24/2012 00:00:00 [id number] autoEComm erce [address] [facility] [address] [place] [address] 12/24/2012 00:00:00 [id number] autoEComm erce [address] [facility] [address] [place] [address] 02/17/2013 00:00:00 [id number] autoEComm erce [address] [facility] [address] [place] [address] 02/17/2013 00:00:00 [id number] autoEComm erce [address] [place] [address] 02/17/2013 00:00:00 [id number] autoEComm erce [address] [facility] [address] [place] [address] 04/03/2013 00:00:00 [id number] autoEComm erce [address] [place], [place] [address] 07/02/2013 00:00:00 [id number] autoEComm erce [address] [facility],[address] [place], [place] [address] 07/02/2013 00:00:00 [id number] autoEComm erce [address] [facility],[address] [place], [place] [address] 07/02/2013 00:00:00 [id number] autoEComm erce [address] [facility],[address] [place], [place] [address] 07/02/2013 00:00:00 [id number] autoEComm erce [address] [facility],[address] [place], [place] [address] 08/07/2013 00:00:00 [id number] autoEComm erce [address]40 [facility],[address] [place], [place] [address] 08/07/2013 00:00:00 [id number] Santy Lizarraga MD Main Office 3640 [facility] [address] [place], [place] [address] 12/25/2013 13:38:22 12/25/2013 15:44:33 Adult health examination [id number] Type 2 boyd betes mellitus without complication 786639668 Body mass index 30+ - obesity 248900458 Tobacco de pendence syndrome 05589200 [id number] MURTAZA Fonseca Main Office [address] [address] [place] [address] 01/08/2014 10:15:10 01/08/2014 11:22:19 Impacted cerumen 77309112 removed successful ly with ear lavage [id number] Santy Lizarraga MD Main Office [address] [address] [place] [address] 06/24/2014 10:39:02 06/24/2014 11:13:57 Type 2 diabetes mellitus without complication 885524789 Lipomatous tumor 198742730 Tobacco de pendence syndrome 51162417 Screening for malignant neoplasm of colon 526452664 [id number] Santy Lizarraga MD Main Office [address] [address] [place] [address] 09/16/2014 10:03:52 09/16/2014 11:17:52 Type 2 diabetes mellitus without complication 221810322 Essential hypertension 90932215 Hypothyroidism 53907048 Hyperlipidemia 25853226 Anemia due to unknown mechanism 72805828 [id number] Santy Lizarraga MD Main Office [address] [address] [place] [address] 12/22/2014 09:48:14 12/22/2014 10:34:50 Type 2 diabetes mellitus without complication 588256154 Essential hypertension 64395659 Hypothyroidism 46386852 Iron defic iency anemia 73969847 Tobacco de pendence syndrome 83792068 [id number] Santy Lizarraga MD Main Office [address] [address] [place] [address] 03/19/2015 09:41:41 03/19/2015 10:38:38 Type 2 diabetes mellitus without complication 752914992 E11.9 Essential hypertension 40227640 I10 Hypothyroidism 54699815 E03.9 Tobacco de pendence syndrome 67970569 F17.290 Body mass index 30+ - obesity 591467899 Z68.33 [id number] Santy Lizarraga MD Main Office [address] [address] [place] [address] 07/02/2015 10:14:09 07/02/2015 11:05:56 Type 2 diabetes mellitus without complication 481769408 E11.9 Essential hypertension 85716644 I10 Hypothyroidism 88552660 E03.9 [id number] Dallas Lee PA-C Main Office [address] [address] [place] [address] 09/08/2015 13:28:30 09/08/2015 14:43:50 Upper respiratory infection 58425281 J06.9 Tobacco de pendence syndrome 46939385 F17.290 Hoarse 19726474 R49.0 [id number] Dallas Lee PA-C Main Office [address] [address] [place] [address] 09/15/2015 08:37:56 09/15/2015 09:31:41 Hoarse 07295433 R49.0 Serous otitis media 8032 7007 H65.03 Acute sinusitis 09403913 J01.90 [id number] Dallas Lee PA-C Main Office [address] [address] [place] [address] 10/14/2015 12:52:25 10/14/2015 13:37:11 Pre-surgery evaluation 681585729 Z01.818 Essential hypertension 72164989 I10 Type 2 boyd betes mellitus without complication 592700776 E11.9 Hypothyroidism 56897206 E03.9 Hyperlipidemia 30775300 E78.5 Tobacco de pendence syndrome 03581977 F17.290 [id number] Santy Lizarraga MD Main Office [address] [place] [address] 12/11/2016 10:54:12 12/11/2016 11:47:51 Type 2 diabetes mellitus without complication 727910164 E11.9 Needs infl uenza immunization 253557118 Z23 Acquired hypothyroidism 450210453 E03.9 Tobacco de pendence syndrome 93426101 F17.290 Body mass index 30+ - obesity 892959172 Z68.30 Z68.32 [id number] Santy Lizarraga MD Main Office [address] [address] 03/14/2017 12:56:31 03/14/2017 13:50:40 Adult health examination 664967618 Z00.00 Type 2 boyd betes mellitus without complication 452338185 E11.9 Hypothyroidism 67304376 E03.9 Essential hypertension 67991288 I10 Hyperlipidemia 80936651 E78.2 Tobacco de pendence syndrome 22936281 F17.200 Bipolar I disorder 11372 6008 F31.9 Obesity 856496702 E66.9 Body mass index 30+ - obesity 129208687 Z68.30 Z68.33 [id number] Rachel Lee PA-C Main Office [address] [address] 06/11/2017 09:52:53 06/11/2017 10:44:58 Type 2 diabetes mellitus without complication 435658934 E11.9 Total time spent teaching and coordinati [...] m. Body mass index 30+ - obesity 419060976 E66.9 Z68.35 Z68.34 [id number] Santy Lizarraga MD Main Office [address] [place] [address] 09/10/2017 10:16:39 09/10/2017 11:23:35 Hepatitis C screening 247936703 Z11.59 Type 2 boyd betes mellitus without complication 179294466 E11.9 Essential hypertension 92207638 I10 Hypothyroidism 13742769 E03.9 Multiple n odules of lung 527218478 R91.8 Obesity 956111844 E66.9 Body mass index 30+ - obesity 738889959 Z68.30 Tobacco de pendence syndrome 16650913 F17.200 Bipolar I disorder 23312 6008 F31.9 [id number] Rachel Lee PA-C Main Office [address] [place] [address] 12/10/2017 09:22:09 12/10/2017 10:09:00 Type 2 diabetes mellitus without complication 563152115 E11.9 STable type II Diabetes w/o complicati ons. Continue current m eds. Lower total calories and increase exercise activity. Test glucose 1-3 times daily . F/u 4 m. Needs infl uenza immunization 403978244 Z23 Body mass index 30+ - obesity 661973474 E66.9 Z68.35 Z68.32 [id number] Dallas Lee PA-C Main Office [address] [address] [place] [address] 12/17/2017 11:22:42 12/17/2017 12:21:26 Zana blake 60053698 H61.23 [id number] Rachel Lee PA-C Main Office [address] [place] [address] 02/12/2018 13:25:55 02/12/2018 14:22:18 Migraine 58959926 G43.909 Pt on multiple meds w/ chronic AGUIRRE w/o focal deficit. Refer to neurology for further eval. Snoring 67820802 R06.83 [id number] Janey bhatti MD Main Office [address] [address] [place] [address] 06/07/2018 10:51:52 06/07/2018 11:42:32 Requires a tetanus booster 268865701 Z23 Uncontroll ed type 2 diabetes mellitus 449162776 E11.65 Worsened diabetic control likely due to decreased physical activity and higher calories since the last visit. Pt. is advised to return to testing more than just in the am. Repeat A1c in 3 m. Repeat BMP and microalbum in today. F/u 4 m. Body mass index 30+ - obesity 557269098 E66.9 Z68.32 [id number] Santy Lizarraga MD Main Office [address] [address] [place] [address] 07/05/2018 10:04:54 07/05/2018 10:42:08 Adult health examination 499043327 Z00.00 Acquired hypothyroidism 178168068 E03.9 Type 2 boyd betes mellitus without complication 012116491 E11.9 Essential hypertension 19745384 I10 Tobacco de pendence syndrome 90827334 F17.200 Iron defic iency anemia 84061547 D50.9 Obesity 352052873 E66.9 Z68.30 Bipolar I disorder 52205 6008 F31.9 [id number] Santy Lizarraga MD Main Office [address] [address] [place] [address] 10/07/2018 10:48:37 10/07/2018 11:25:48 Type 2 diabetes mellitus without complication 644476438 E11.9 STable type II Diabetes w/o complicati ons. Continue current m eds. Lower total calories and increase exercise activity. Test glucose 1-3 times daily . F/u 3-4 m. Body mass index 30+ - obesity 051835442 Z68.32 [id number] Santy Lizarraga MD Main Office [address] [address] [place] [address] 02/19/2019 10:20:25 02/19/2019 11:04:28 Type 2 diabetes mellitus without complication 458080877 E11.9 STable type II Diabetes but with slight increase in A1c since the last visit. Continue current meds but test daily and if glucose readings are under 70 , call office. Glipizide will be reduced. . Lower total calories and increase exercise activity. Test glucose 1-3 times daily . F/u 3 m. Needs infl uenza immunization 923966133 Z23 Body mass index 30+ - obesity 709201166 Z68.33 Obesity 850048066 E66.9 [id number] Santy Lizarraga MD Main Office 3640 [facility] 207 [facility] [place] [address] 02/06/2020 10:57:23 02/06/2020 12:01:42 Adult health examination 483316144 Z00.00 vaccines are up to date. Type 2 boyd betes mellitus without complication 281407185 E11.9 A1c is a bit above norm. Pt. is advised to lower portions and increase exercise to daily walking. Increase glipizide ER 5 mg to 1.5 tabs daily. Continue metformin. Major depr ession single episode, in partial remission 15038244 F32.4 f/u with psych Acquired hypothyroidism 135320703 E03.9 repeat TSH , continue current meds. Hyperlipidemia 08368112 E78.5 repeat fasting labs. Contineu statin therapy. Impacted c erumen of bilateral ears 3681619865 139484 H61.23 Obesity 979989560 E66.9 Benign pro static hyperplasia 801389949 N40.0 Body mass index 30+ - obesity 529936206 Z68.33 Iron defic iency anemia 17727933 D50.9 Migraine 68935581 G43.90 9 F/u with neurologis t. Continue current meds. Essential hypertension 91441908 I10 stable control. Bipolar I disorder 71604 6008 F31.9 f/u with psych [id number] Shalom Aiken MD Main Office 3640 [facility] 207 [facility] [place] [address] 06/14/2020 10:26:17 06/14/2020 11:18:01 Finding of sensation of musculoskeletal structure of neck 059119323 M54.2 Given the dusky appearance of the [...] concerns, and expresses understand ing. Essential hypertension 59368693 I10 I believe the elevation in blood pressure is due to the acute event with the fact that he was having pain of the right upper extremity. He was sent to emergency room for further management of that where his blood pressure should also be monitored. Peripheral arterial occlusive disease 228251523 I73.9 addendum June 15, 2020 patient went [...] angiogram of the upper extremity. Cervical radiculopathy 13054126 M54.12 addendum: June 15, 2020 as stated prior he was discharged from the emergency room to be followed up at [facility] for an MRI and steroid injection and to continue Motrin at home. Patient called today complbibianain g significan t pain 01/09 thus I have gone ahead and provide him with some prednisone to be taken with meals and placed an urgent MRI evaluation ofthe cervical spine to evaluate for interval change which she had done ~2 years ago; I suspect that the findings would be worsened. Patient has a schedule to see [facility] on at 8:30 AM we hope to be able to obtain MRI priors to his visit.Othe r analgesic options were also explored this includes opioid but given patient's significan t medication interactio n I felt that steroids would be the safer option for this patient. [id number] Shalom Aiken MD Main Office [address] [place] [address] 06/15/2020 09:49:06 06/15/2020 23:36:26 [id number] Rachel Lee PA-C Main Office [address] [place] [address] 07/02/2020 12:59:07 07/02/2020 13:37:58 Uncontrolled type 2 diabetes mellitus 919805354 E11.65 Worsened diabetic control likely due to [...] 6 weeks with repeat A1c and BMP. [id number] Janey bhatti MD Main Office [address] [place] [address] 08/06/2020 14:24:25 08/06/2020 15:21:45 Tobacco dependence syndrome 35909768 F17.200 Encouraged pt to cut back on smoking Type 2 boyd betes mellitus without complication 854017081 E11.9 Diabetes has been fairly well controlled , he is compliant with meds. Discussed stopping metformin the day before, holding glipizide and jardiance am of surgery Pre-surger y evaluation 347901656 Z01.818 Patient is at low risk for [...] as planned. Serrano 0.13% Bipolar I disorder 68233 6008 F31.9 controlled on current meds [id number] Rachel Lee PA-C Main Office [address] [place] [address] 09/01/2020 13:38:02 09/01/2020 14:25:20 Uncontrolled type 2 diabetes mellitus 323972647 E11.65 Improving diabetic control, but A1c is not at goal. We will increase jardiance to 25 mg daily and lower glipizide ER to 5 mg daily to avoid hypoglycem ia. Metformin switch to ER formulatio n at 2000 mg daily. Continue low calories diet and exercise. F/u 3 m. LdeojzG4x and BMP in 6 weeks. [id number] Pantera Shields MD Tele[facility] [address] [address] 12/13/2020 08:09:49 12/13/2020 10:39:47 Uncontrolled type 2 diabetes mellitus 005560816 E11.65 Improved diabetic control with current meds. Pt. struggles to pay for Jardiance, but wishes to stay on it for now. Continue metformin and glipizide er as he is not experienci ng hypoglycem ia. F/u in office in January with new PCP. 6months with me. [id number] Shalom Aiken MD Main Office [address] [address] 02/14/2021 10:54:13 02/14/2021 12:21:50 Adult health examination 533685600 Z00.00 Patient was counseled on healthy diet, exercise and nutrition due to Body mass index is 32.5 kg/m . Last PSADate: 06/02/20Resu lt: 0.5 Last Colonoscop y:Date: 10/16/14Res ult: wnlPlan:re peat 10 yrs Vaccines:T d:06/07/18Zo ster: script providedPC V13: not [id number]: 04/30/07Inf luenza: 01/20/21Co vid: 07/10/20, advised to get booster Routine labs today Immunizati on status reviewed. Will screen based on risk factors. Regular dental and ophtho care advised as well as seat belt and sunscreen use. Distracted driving discussed. Medication reconciled . Advance directives discussed. Tobacco de pendence syndrome 97686882 F17.200 20 pack year hx.Low dose CT discussed. Patient meets current guideline for screening will see if insurance will cover.Cons idering to cut down with smoking.> 3 min spent counseling . Hypothyroidism 78046778 E03.9 Uncontroll ed type 2 diabetes mellitus 960972402 E11.65 A1c and microalbum in ordered by VMAdvised to f/u and get labs. Fatigue 79027454 R53.83 Hyperlipidemia 61915063 E78.5 Varicella vaccination 68 257088 Z23 Screening for malignant neoplasm of lung 373236206 Z87.891 Eligible patients must have >=30 pack years Bipolar I disorder 05530 6008 F31.9 Currently having bad day denies homocidal or suicidal ideation at present time, no plan.Advis ed and he plans to reach psychiatri st today.Michelle is hot line provided. Body mass index 30+ - obesity 464206792 E66.9 - Diet and exercise discussed- Patient made aware of risks of obesity- Encouraged to loose weight.- Avoid starchy and fatty food- Encouraged use of green vegetables and fruits Obesity 604882211 E66.9 Impacted c erumen of bilateral ears [id number] 439002 H61.23 Constipation 35168667 K5 9.00 On ROS noted constipati on past 2 days, has not had bowel movement.N otes he is passing gas.Denies abd pain or blood in stool.Advi sed high fiber diet and drinking plenty of fluidsMirl ax provided. [id number] Oskar Burgess MD Main Office [address] [facility] [address] [facility] [place] [address] 04/26/2021 10:54:44 04/26/2021 11:31:49 Uncontrolled type 2 diabetes mellitus 655162440 E11.65 Uncontroll ed blood sugars due to [...] will see Adam in 3 m. Hypothyroidism 41917235 E03.9 [id number] Shalom Aiken MD Main Office [address] [facility] [address] [place] [address] 12/09/2021 10:57:42 12/09/2021 11:36:46 Essential hypertension 81667603 I10 Increase lisinopril to 5 mg daily. Repeat bmp and microalbum in. Follow low sodium diet and work on weight reduction. Check bp weekly at home. Needs infl uenza immunization 135669639 Z23 Uncontroll ed type 2 diabetes mellitus 264973248 E11.65 A1c is not at goal. Pt. can n ot afford Jardiance. He will continue glipizide and metformn and we will add another generic pioglitazo ne at 30 mg daily. F/u in January with PCP , with me in 4 m. [id number] Shalom Aiken MD Main Office [address] [facility] [address] [place] [address] 02/21/2022 11:06:07 02/21/2022 12:01:38 Adult health examination 695716725 Z00.00 Patient was counseled on healthy diet, exercise and nutrition due to Body mass index is 34.1 kg/m . Last PSADate: 06/02/20Resu lt: 0.5Plan: Had shared decision, wants to have screened understand risk and benefits. Last Colonoscop y:Date: 10/16/14Res ult: wnlPlan:re peat 10 yrs Vaccines:T d:06/07/18Zo ster rec: script providedPC V20: not [id number]: 04/30/07Inf luenza: 12/09/21Covi d: 07/10/20, 03/05/21, advised to get bivalent Routine labs today Immunizati on status reviewed. Will screen based on risk factors. Regular dental and ophtho care advised as well as seat belt and sunscreen use. Distracted driving discussed. Medication reconciled . Advance directives discussed. Tobacco de pendence syndrome 61878853 F17.200 20 pack year hx.Cont LDT> 3 min spent counseling , has plans has yet to set date. Hypothyroidism 35609924 E03.9 Uncontroll ed type 2 diabetes mellitus 534511803 E11.65 Follows VM, cont with current regimen till visit.HBA1 C [id number] orderedOn aceAspirin EC 81 mg po advisedFee t examined today, advised to also check regularly and use own clippers/Y early Ophthalmol ogy exam advised.Li pid profile ordered, on statin.Cou nselled about regular physical activityCo unselled on diet- Patient advised regarding risks/sign s/symptoms of hypoglycem ia. Counseled to carry a snack in case of emergencie sPPSV23 done.Micro albumin done Varicella vaccination 68 385013 Z23 Bipolar I disorder 83528 6008 F31.9 Advised and he plans to reach psychiatri st Follows Dr. Barajas has apt in Apr. Anemia due to unknown mechanism 68865524 D64.9 Will stop iron he will check today and again in 3mo. Essential hypertension 89971783 I10 I believe the elevation in blood pressure is due to the acute event with the fact that he was having pain of the right upper extremity. He was sent to emergency room for further management of that where his blood pressure should also be monitored. Fatigue 85748804 R53.83 Hyperlipidemia 64795632 E78.5 Schizophrenia 83661326 F 20.9 Tells me saw scott and was dx with this.will try to get records. Nocturia 269893990 R35.1 Long-term drug therapy 868366663 Z79.84 Metformin Use Body mass index 30+ - obesity 243449100 Z68.30 E66.9 - Diet and exercise discussed- Patient made aware of risks of obesity- Encouraged to loose weight.- Avoid starchy and fatty food- Encouraged use of green vegetables and fruits Obesity 505271643 E66.9 [id number] Shalom Aiken MD Main Office [address] [facility] [address] [facility], [place] [address] 03/01/2022 13:41:31 03/01/2022 14:36:39 Uncontrolled type 2 diabetes mellitus 855284567 E11.65 A1c is elevated at 8%. PT.is advised to try GLP-1 Trulicity at 0.75 mg weekly. WE discussed possible side effects of medication and injections were demonstrat ed with demo device.Pt. will continue other anti diabetics and return after starting new medication in 6 weeks. Visual disturbance 33219 001 H53.9 recommend to see retinal specialist for check , but most likely is due to increasing glucose readings. Essential hypertension 52015379 I10 Stable HTN. Continue low sodium diet and lisinopril . [id number] Shalom Aikne MD Main Office [address] [address] [place] [address] 2022 09:25:49 2022 10:10:08 Essential hypertension 90056438 I10 Stable HTN. Continue low sodium diet and lisinopril . Type 2 boyd betes mellitus without complication 467062060 E11.9 Much improved diabetic control. Lower metformin to 1000 mg daily , but we will increase Trulicity to 1.5 mg weekly to promote further appetite suppressio n and weight loss. F/u 3-4 m. [id number] Shalom Aiken MD Telehealt h [address] [place] [address] 07/03/2022 09:20:23 07/03/2022 11:13:19 Type 2 diabetes mellitus without complication 821612055 E11.9 Stable diabetic control on current meds, but pt. can not afford Trulicity now. He will inject last pen and after a week will increase glipizide ER from 5 to 10 mg. Continue max metformin and pioglitazo ne 20 . PT.is advised to keep total calories down and avoids sweets and excess carbs. F/u 6 weeks in office plus repeat A1c. [id number] Janice gonsales, STOCK DIGGER Main Office [address] [place] [address] 07/24/2022 08:52:22 07/24/2022 09:48:49 Pre-surgery evaluation 428497348 Z01.818 Patient is at low risk for [...] rder due to type 2 diabetes mellitus 584484178 E11.29 stable. Diabetes has been well controlled recently. He is compliant with meds. Discussed stopping metformin the day before, holding glipizide am of surgery good improvemen t with change in meds and better diet. Hgb a1c down to 6.2% Bipolar I disorder 94984 6008 F31.9 controlled on current meds Essential hypertension 65297963 I10 [id number] Shalom Aiken MD Main Office [address] [facility] [address] [facility] [place] [address] 09/08/2022 10:57:17 09/08/2022 11:40:25 Type 2 diabetes mellitus without complication 269588291 E11.9 Increase in A1c secondary to trial of aripiprazo le by psych which raised glucose for 3 weeks in the past month. Now pt is off this med , we will bring glipizide er back down to 5 mg. Continue metformin and pioglitazo ne. Check bmp. F/u 4 m. [id number] Shalom Aiken MD Main Office [address] [facility] [address] [facility] [place] [address] 10/16/2022 13:23:29 10/16/2022 14:02:51 Acute exacerbation of chronic obstructive pulmonary disease 078960908 J44.1 Will tx for presumptiv e COPD exacerbati on given halfway smoking.Sm oking exacerbati on discussed. Will start medrol katharina, abx (aware to not take with calcium products, but take with meal to limit nausea, risk of photosensi tivity discussed) . Albuterol sent. Will get cxr, follow up 1 week.Aware if can't speak in full sentences then go to ED Upper resp iratory infection 18511007 J06.9 Tylenol 15mg/kg for pain or fever q6h. Throat Lozenges, salt water gargle, adequate hydration enforced, saline sprays, rest advised, humidifier use enforced. [id number] Shalom Aiken MD Main Office [address] [address] [place] [address] 10/23/2022 13:25:46 10/23/2022 14:10:16 Acute exacerbation of chronic obstructive pulmonary disease 541206998 J44.1 Will tx for presumptiv e COPD exacerbati on given halfway smoking.Sm oking exacerbati on discussed. Will do prednisone lower dose.Will do nebulizer to see if he tolerates betterFoll ow up 1 week.Aware if can't speak in full sentences then go to ED Upper resp iratory infection 39075178 J06.9 Tylenol 15mg/kg for pain or fever q6h. Throat Lozenges, salt water gargle, adequate hydration enforced, saline sprays, rest advised, humidifier use enforced. [id number] Shalom Aiken MD Main Office [address] [address] [place] [address] 10/30/2022 13:38:25 10/30/2022 14:26:12 Acute exacerbation of chronic obstructive pulmonary disease 879330348 J44.1 sx better by 70%, advised neb use PRN, will get PFT.Follow up for resolution in 5 weeks. Chronic ob structive pulmonary disease 84779439 J44.9 [id number] Santy Lizarraga MD Telehealt [address] [address] [place] [address] 11/13/2022 12:43:33 11/14/2022 11:05:03 Chronic obstructive pulmonary disease 94973404 J44.9 Night sweats 19458378 R6 1 [id number] Shalom Aiken MD Main Office [address] [address] [place] [address] 12/05/2022 13:54:36 12/05/2022 14:22:37 Chronic obstructive pulmonary disease 14969417 J44.9 sx better, will continue with inhaler.he did not go for PFT they tried to call him to schedule. He has number advised to call for apt. Compliance and importance discussed. Hoarse 69345831 R49.0 occurred prior to steroid inhaler use. Will get ent eval as it has been 3mo and he is a smoker. Night sweats 80881893 R6 1 Notes better, thus will continue to monitor. [id number] Rachel Lee PA-C Main Office [address] [address] [place] [address] 12/13/2022 13:08:26 12/13/2022 13:42:39 Type 2 diabetes mellitus without complication 270007779 E11.9 Stable diabetes. Repeat A1c and microalbum in today. Continue current medication s. F/u 3-4 m. Needs infl uenza immunization 354333992 Z23 [id number] Shalom Aiken MD Main Office [address] [address] [place] [address] 03/14/2023 10:56:15 03/14/2023 11:44:18 Type 2 diabetes mellitus without complication 633714527 E11.9 HA1c increased at 7.3% today. Continue current medication s. Work on improving dit and increase exercise activity. F/u 4 m. Essential hypertension 18214568 I10 Stable HTN. Continue low sodium diet and lisinopril . Hypoglycemia 725546564 E 16.2 Pt reports symptomati c hypoglycem [...] he has any episodes of glucose <55. [id number] MEGHNA FERNANDEZ MD Main Office [address] [place] [address] 07/13/2023 09:58:19 07/13/2023 10:29:49 Uncontrolled type 2 diabetes mellitus 945988993 E11.65 A1c is above goal at 7.4%. Recommend to begin jardiance at 10 mg daily , lower glipizide er to 2.5 mg , continue pioglitazo ne 30 and max dose metformin. We discussed possible side effects of electrolyt e depletion with Jardiance. Pt. is advised to increase hydration and have labs done in 2 weeks. F/u 3 m. Essential hypertension 70246613 I10 Stable HTN. Continue low sodium diet and lisinopril . Hyperlipidemia 76648517 E78.5 repeat fasting labs. continue statin therapy. Type 2 boyd betes mellitus without complication 795181022 E11.9 HA1c increased at 7.3% today. Continue current medication s. Work on improving dit and increase exercise activity. F/u 4 m. [id number] Shalom Aiken MD Main Office [address] [facility] [address] [facility] [place] [address] 07/16/2023 13:58:24 07/16/2023 14:30:21 Adult health examination 263496617 Z00.00 Patient was counseled on healthy diet, exercise and nutrition due to Body mass index is 33.2 kg/m . Last PSADate: 06/02/20Resu lt: 0.5Plan: Had shared decision, wants to have screened understand risk and benefits. Last Colonoscop y:Date: 10/16/14Res ult: wnlPlan:re peat 10 yrs Vaccines:T d:06/07/18Zo ster rec: script providedRS V: Script [id number] : script givenPPSV2 3: 04/30/07Inf luenza: 12/13/22Cov [...] Medication reconciled . Advance directives discussed. Nocturia 081950904 R35.1 Long-term drug therapy 077658494 Z79.84 Metformin Use Administra tion of pneumococcal vaccine 39691207 Z23 Varicella vaccination 68 833372 Z23 Administra tion of viral vaccine 14697755 Z29.11 Bipolar I disorder 31167 6008 F31.9 Followed by psych Omar Chan STOCK DIGGER, follows every mo.Has had thoughts of self harm but not present and is working closely with psych, no active plan. Hypothyroidism 17323270 E03.9 Tobacco de pendence syndrome 17115574 F17.200 20 pack year hx.Cont LDT> 3 min spent counseling , has plans has yet to set date. Nicotine dependence 5629 4008 Z87.891 LDCT Lung Cancer Screening Program Annual Order Chronic ob structive pulmonary disease 28987729 J44.9 sx better, will continue with inhaler.he did not go for PFT they tried to call him to schedule. He has number advised to call for apt. Compliance and importance discussed. Schizoaffe ctive disorder, bipolar type 87573945 F25.0 Followed by psych Omar Chan, follows every mo.Has had thoughts of self harm but not present and is working closely with psych, no active plan.Jj Chan STOCK DIGGER Essential hypertension 77719769 I10 I believe the elevation in blood pressure is due to the acute event with the fact that he was having pain of the right upper extremity. He was sent to emergency room for further management of that where his blood pressure should also be monitored. [id number] Shalom Aiken MD Main Office [address] [facility] [address] [place] [address] 08/29/2023 13:30:35 08/29/2023 14:01:42 Chronic obstructive pulmonary disease 66923615 J44.9 Will start anoro ellipta.Co nt. what he thinks to have albuterol prn.Will get pftSmoking cessation encouraged .Follow up 1 mo. [id number] Shalom Aiken MD Main Office [address] [facility] [address] [place] [address] 10/02/2023 13:26:57 10/02/2023 14:21:37 Chronic obstructive pulmonary disease 60394583 J44.9 He was not able to start anoro ellipta due to cost he is going to look for coupons.Co nt. what he thinks to have albuterol prn.Notes he had pft will try to get resultSmok ing cessation encouraged . Multiple n odules of lung 333547826 R91.8 [address] Apt 10/19 [id number] Pantera Shields MD Main Office [address] [facility] [address] [place] [address] 10/17/2023 09:59:32 10/17/2023 10:24:44 Type 2 diabetes mellitus without complication 135340355 E11.9 HA1c is in range with current treatment plan. PT. was encouraged to exercise more and lower total calorie intake as discussed. Labs done 3 days ago discussed with pt. F/u 4 m. Screening for malignant neoplasm of colon 831826969 Z12.11 [id number] Pantera Shields MD Main Office [address] [address] [place], [place] [address] 11/20/2023 14:07:18 11/20/2023 14:08:09 [id number] Shalom Aiken MD Main Office [address] [place], [place] [address] 04/09/2024 10:26:20 04/09/2024 11:09:15 Chronic obstructive pulmonary disease 41037574 J44.9 He restarted anoro ellipta, notes better control less use of albuterol. Smoking cessation encouraged . Multiple n odules of lung 929292134 R91.8 Had repeat scan with thoracic which showed nodule resolved, repeat LDCT in 12/31/24 Microcytic anemia 458554 007 D50.9 Has apt with GI 04/15/24, reminded him.Referr al also printed for him. Tobacco de pendence syndrome 64148593 F17.200 20 pack year hx.Cont LDT> 3 min spent counseling he wants to quite, reviewed options he will do patches he promised me he will not smoke while doing patch and gum, reviewed risk of nicotine toxicity. Use gum when he has urge to smokeFollo w up ~6 weeks. [id number] Oskar Burgess MD Main Office [address] [place], [place] [address] 05/28/2024 13:10:34 05/28/2024 13:49:29 Type 2 diabetes mellitus without complication 346101908 E11.9 HA1c is slightly above normal range [...] pioglitazo ne. F/u 3-4 m. Essential hypertension 08257214 I10 Stable HTN. Continue low sodium diet and lisinopril . [id number] Shalom Aiken MD Main Office [address] [facility] [address] [facility] [place] [address] 08/13/2024 09:51:56 08/13/2024 10:39:33 Adult health examination 072009496 Z00.00 Patient was counseled on healthy diet, exercise and nutrition due to Body mass index is 33.2 kg/m . Last PSADate: 10/15/23Res ult: 0.3Plan: Had shared decision, wants to have screened understand risk and benefits. Last Colonoscop y:Date: 10/16/14Res ult: wnlPlan: has colo and egd scheduled due to anemia Vaccines:T d:06/07/18Zo ster rec: 07/22/23, 05/22/24RSV : Script [id number] : 07/22/23PPS V23: 04/30/07Inf luenza: yearly flu [...] Medication reconciled . Advance directives discussed. Nocturia 560626222 R35.1 Long-term drug therapy 295427497 Z79.84 Metformin Use Hypothyroidism 58509950 E03.9 92818096 Iron defic iency anemia 54178087 D50.9 22416179 Following GI, plan for EGD/COLO Schizoaffe ctive disorder, bipolar type 72924973 F25.0 Followed by psych Omar Chan, follows every mo.Has had thoughts of self harm but not present and is working closely with psych, no active plan.Jj Chan STOCK DIGGER Essential hypertension 08990716 I10 I believe the elevation in blood pressure is due to the acute event with the fact that he was having pain of the right upper extremity. He was sent to emergency room for further management of that where his blood pressure should also be monitored. Hyperlipidemia 19300245 E78.5 Nicotine dependence 5629 4008 Z87.891 LDCT Lung Cancer Screening Program Annual Order Type 2 boyd betes mellitus without complication 395476931 E11.9 Migraine 39547939 G43.90 9 stable, follows neurologis t. Obesity 420524284 E66.9 Tobacco de pendence syndrome 38633917 F17.200 20 pack year hx.Cont LDT> 3 min spent counseling he wants to quite, reviewed options. No motivation for cessation, risk discussed. Administra tion of viral vaccine 62391992 Z29.11 [id number] Oskar Burgess MD Main Office [address] [facility] [address] [place] [address] 09/05/2024 14:27:25 09/05/2024 15:38:19 Uncontrolled type 2 diabetes mellitus 381395607 E11.65 55249084 A1c is above goal at 7.4%. LIkely combinatio n of length with diabetes, diet and psych meds.Recom mend to continue current medication s, increase exercise activity and remove most of carbs and processed foods. Retest in 3 m. If continues trending up, add basal insulin bolus. as discussed. Essential hypertension 12480292 I10 Stable HTN. Continue low sodium diet and lisinopril . [id number] Pantera Shields MD Main Office [address] [facility] [address] [place] [address] 11/26/2024 08:53:08 11/26/2024 09:39:56 Type 2 diabetes mellitus without complication 200589267 E11.9 Stable A1c at 6.9%. BMI is 33.3 . Pt is unable to lose weight. Has also h/o moderate obstructiv e sleep apnea. Uses CPAP nightly.Re commend to add mounjaro 2.5 mg weekly for 4 weeks, then titrate up to 5 mg. F/u 6-8 weeks. Plan to discontinu e sulfone urea which increases risk for random hypoglycem ia. Obstructiv e sleep apnea syndrome 90421441 G47.33 47306359 continue use of CPAP. Add mounjaro. Essential hypertension 62910524 I10 Stable HTN. Continue low sodium diet and lisinopril . Diabetic p eripheral neuropathy 077316884 E11.42 240691 Mild on the filament exam, but pt has thickened skin over heels and long toenails.r ecom to see jewel hole finish opener for regular foot care. Body mass index 30+ - obesity 604762912 Z68.33 E66.9 731536 Elevated bmi , type II diabetes with neurologic and ocular manifestat ions and OBS.Recomm end addition of GLP?GIP also indicated for OBS. WE also discussed having to increase exercise to daily 30-40 minutes walking and reducing total calories and carbs. F/u 6-8 weeks after the start of weight medication . Health Concerns Section Related Observation LastModified by Organization Detai ls LastModified Time None Recorded Concern Status LastModified by Organization Details LastModified Time None Recorded Advance Directives Directive Y: Payers Insurance Date Sequence Insurance Name Policy Number Policy Gates Covered Member ID Gates Member ID Guarantor Name 03/14/2023 [employer] (MEDICARE REPLACEMENT/A DVANTAGE - PPO) [id number] Adam Elliottnerty [id number] Adam Villavicencio Stormy 03/14/2023 1 [employer] (MEDICARE REPLACEMENT/A DVANTAGE - PPO) [id number] Adam Elliottnerty [id number] Adam Villavicencio Stormy 12/24/2024 1 [employer] (MEDICARE REPLACEMENT/A DVANTAGE - PPO) [id number] Adam Elliottnerty [id number] Adam Elloittnerty 09/12/2018 2 UNSPECIFIED REMIT PAYOR Adam Villavicencio Stormy 03/14/2023 1 MEDICARE B-[place]: [employer]ATIONAL [employer] Adam Villavicencio Stormy [id number] Adam Elliottnerty Notes Date Note Type Note Provider Name and Address Organization Details Recorded Time 04/09/19 25 text/htm l [facility] Smoking CessationReported by PatientHPIFor caution to taking nrt, patient reportsdiabetes. For duration, patient [id number] years. For timing, patient reportsdailyandintermittent thorughout the day. For quality, patient cigarettes/day. For context, patient reportsduring stress. For associated symptoms, patient reportsno weight loss,no fever/chills/sweats,no fatigue,no hoarseness or change in voice,no throat pain,no pain or difficulty swallowing,no cough,no hemoptysis,no septum or phlegm,no wheezing,no shortness of breath,no chest pain,no heartburn/indigestion unrelated to eating,no heart palpitations or missed beats, andno swelling in ankles/feet. For treatments tried, patient reportsnone. For contraindications to taking nrt, patient reportsnone. COPDReported by PatientHPI:For onset/timing, patient reportschronic. For severity, patient reportsnot limiting. For associated symptoms, patient reportsno snoring,no excessive daytime sleepiness,no arousals from sleep,no dyspnea,no decrease in exercise capacity,no fatigue,not coughing up sputum,no cough,no fever,no wheezing,no weight loss, andno depression. Follow up for COPD and smoking. Shalom Aiken MD [address], [address], [facility] 04/09/2024 11:03:11 05/28/19 25 text/htm l Hypertension F/UReported by PatientHPIFor lifestyle, patient reportsnot exercising regularly. For associated symptoms, patient reportsno dizziness,no lightheadedness,no chest pain,no shortness of breath,no palpitations,no edema, andno calf pain with exertion. For medications, patient reportstaking medications as directedandno side effects from medication.stable hypertension on lisinopril 5 mg. Diabetes F/UReported by PatientHPIFor context, patient reportsnot taking aspirin dailybut reportsnormal range of home blood sugars (in the low 100s),seeing eye doctor regularly,checking feet regularly,not missing doses of medications, andno side effects from medications. For associated symptoms, patient reportsweight gain (___ lbs)but reportsno weight loss,no dizziness,no sweats,no headaches,no confusion,no increased thirst,no increased appetite,no increased urination,no blurred vision,no numbness of feet, andno calluses on feet.HGA1c today is 7.3% .Meds: pioglitazone 30, metformin max dose.Pt. has diabetic eye exam today. NO change in vision reported. NO foot pain. Pt. does not see jewel hole finish opener.ROS as noted in the HPI Rachelsteven Lee PA-C [address] [address], [place], [address], [facility] 05/28/2024 13:55:09 08/14/19 text/htm l Generic HPI TemplateReported by PatientROS as noted in the HPI Here for PE visit. Reviewed chronic medications and medical problems. Discussed screening guidelines as well as goals for fitness and weight management. Shalom Aiken MD [address] [address], [place], [address], [facility] 08/13/2024 10:36:10 09/06/19 text/htm l Hypertension F/UReported by PatientHPIFor lifestyle, patient reportsnot exercising regularly. For associated symptoms, patient reportsno dizziness,no lightheadedness,no chest pain,no shortness of breath,no palpitations,no edema, andno calf pain with exertion. For medications, patient reportstaking medications as directedandno side effects from medication.stable hypertension on lisinopril 5 mg. Diabetes F/UReported by PatientHPIFor context, patient reportsnot taking aspirin dailybut reportsnormal range of home blood sugars (in the low 100s),seeing eye doctor regularly,checking feet regularly,not missing doses of medications, andno side effects from medications. For associated symptoms, patient reportsweight gain (___ lbs)but reportsno weight loss,no dizziness,no sweats,no headaches,no confusion,no increased thirst,no increased appetite,no increased urination,no blurred vision,no numbness of feet, andno calluses on feet.HGA1c was 7.4% on 08/14/24.Meds: pioglitazone 30, metformin max dose, glipizide 5 mgPt. has diabetic eye exam 07/2024. NO change in vision reported. NO foot pain. Pt. does not see jewel hole finish opener.Reports taking blood glucose at home with range 70-125Reports low carb/low calorie diet, no sodaWalks every day for 15 minsROS as noted in the HPI Rachel Jesus VILLAF[facility]ER[facility] [address] [address], [place], [id number], [facility] 09/05/2024 15:51:14 08/27/20 25 text/htm l Hypertension F/UReported by PatientHPIFor lifestyle, patient reportsnot exercising regularly. For associated symptoms, patient reportsno dizziness,no lightheadedness,no chest pain,no shortness of breath,no palpitations,no edema, andno calf pain with exertion. For medications, patient reportstaking medications as directedandno side effects from medication.stable hypertension on lisinopril 5 mg. Diabetes F/UReported by PatientHPIFor context, patient reportsnot taking aspirin dailybut reportsnormal range of home blood sugars (in the low 100s),seeing eye doctor regularly,checking feet regularly,not missing doses of medications, andno side effects from medications. For associated symptoms, patient reportsweight gain (___ lbs)but reportsno weight loss,no dizziness,no sweats,no headaches,no confusion,no increased thirst,no increased appetite,no increased urination,no blurred vision,no numbness of feet, andno calluses on feet.HGA1c is 6.9% today.Meds: pioglitazone 30, metformin max dose, glipizide 5 mg.Pt. has diabetic eye exam 07/2024. NO change in vision reported. NO foot pain. Pt. does not see jewel hole finish opener.Reports taking blood glucose at home with range 70-125Reports low carb/low calorie diet, no sodaWalks every day for 15 minsPt sees retina specialist and had recent cataract surgeries.ROS as noted in the HPI Rachel Jesus [facility] [address] [address], [place], [id number], [facility] 11/26/2024 10:06:41
== END 2025-02-06 10:16 | disposition home or self-care (01) ==
LOC: HO.HSMS 09:22
PROVIDERS: Visit Provider Nurse Practitioner Family
DX: G43.109 Migraine with aura, not intractable, without status migrainosus (principal); G47.33 Obstructive sleep apnea (adult) (pediatric); G24.01 Drug induced subacute dyskinesia
CPT/HCPCS: 99214

== ENCOUNTER → 2025-02-06 09:21 | Outpatient (BNVA) | payer MEDICARE, SELFPAY | PROVIDERS: Visit Provider Nurse Practitioner Family | DX: G43.109 Migraine with aura, not intractable, without status migrainosus (principal); G47.33 Obstructive sleep apnea (adult) (pediatric); G24.01 Drug induced subacute dyskinesia; Z99.89 Dependence on other enabling machines and devices | CPT/HCPCS: 99212 ==